=== PATIENT | female | born 1965 | race Caucasian/White ===

== ENCOUNTER → 2016-05-07 | Outpatient (CLI) | payer OTHER ==
[~2016-05-07] MED LIST: REGADENOSON 0.4 MG/5 ML SYRINGE IV ONE
--- NOTE | 2016-05-07 11:38 | EST ---
DATE OF SERVICE: 05/07/2016 AGE: 50Y SEX: F HT: 5'6" WT: 220 lbs. Protocol Miguel: Other: Lexiscan Cardiolite Stage: Dur. of Exercise: *Heart Rate Blood Pressure *Rest: 67 Rest: 110/79 * *Max. Achieved: 100 Maximum BP: 118/77 85% PMHR: 144 100% PMHR: 169 *METS: INDICATIONS: Chest pain. MEDICATIONS: Folic acid, methotrexate. CLINICAL INFORMATION: Screening for ischemic heart disease, history of chest pain, history of palpitations, family history of coronary artery disease. Resting ECG shows sinus rhythm rate of 67 beats per minute, DC interval 0.16, QRS 0.08, normal ST-T waves. Utilizing a standard Lexiscan protocol, Lexiscan was given IV push followed by serial EKGs without any chest pain or pressure or ST segment deviations indicative of ischemia in any of the monitoring 12 leads. IMPRESSION: 1. Baseline rhythm is sinus with normal DC interval, normal QRS, normal ST-T waves. 2. Negative Lexiscan Cardiolite study. 3. Nuclear scintigrams to follow from radiology department.
--- NOTE | 2016-05-07 14:44 | NM ---
EXAMINATION TYPE: NM stress lexiscan cardiolite DATE OF EXAM: 05/07/2016 11:55 AM COMPARISON: NONE HISTORY: Chest pain, R079 TECHNIQUE: After the intravenous administration of 11.0 mCi Tc 99m Sestamibi - Cardiolite resting SP ECT images acquired 45 minutes post injection. The patient received 0.4mg Lexiscan, 26.2 mCi Tc 99m Sestamibi - Stress images obtained [address] injection FINDINGS: Review of stress and rest SPECT images demonstrates decreased uptake along the anteroseptal, lateral mancilla of the left ventricular myocardium. This is seen at stress and rest images. Additionally there is decreased uptake along the anteroseptal left ventricular myocardium towards the cardiac apex on st ress images as compared to rest images as well as the lateral left ventricular wall towards the apex. Gated analysis shows normal wall motion with an estimated left ventricular ejection fraction of 72 %. 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 A Yellow message has been communicated to Nusrat Conway DO via the Mr. Number Critical Result system on 05/07/2016 2:42 PM, Message ID [id number].
== END | disposition home or self-care (01) ==
LOC: RADNMMAIN 08:49
PROVIDERS: ATTEND Family Medicine
DX: I25.2 Old myocardial infarction (principal)
CPT/HCPCS: 93017; 78452; A9500; J2785

== ENCOUNTER → 2016-07-15 | Outpatient (CLI) | payer OTHER ==
--- NOTE | 2016-07-15 08:03 | US ---
EXAMINATION TYPE: US abdomen limited DATE OF EXAM: 07/15/2016 7:17 AM COMPARISON: NONE CLINICAL HISTORY: RUQ Pain R10.11. EXAM MEASUREMENTS: Liver Length: 16.3 cm Gallbladder Wall: 0.1 cm CBD: 0.2 cm Right Kidney: 10.8 x 5.6 x 4.6 cm cm TECHNOLOGIST IMPRESSION: Pancreas: Obscured by bowel gas Liver: wnl Gallbladder: wnl Evidence for sonographic Liu's sign: no CBD: wnl Right Kidney: wnl Pancreas is suboptimally evaluated due to shadowing from overlying bowel gas. Liver is heterogeneousl y hyperechoic in appearance without intrahepatic ductal dilatation. Evaluation for focal masses is li mited due to the heterogeneity. Suspect diffuse fatty infiltration. Limited images of right kidney sh ow no gross hydronephrosis. IMPRESSION: No gallstones or ultrasound evidence for acute cholecystitis.
== END | disposition home or self-care (01) ==
LOC: RADUSWWP 06:47
PROVIDERS: ATTEND Family Medicine
DX: R10.11 Right upper quadrant pain (principal)
CPT/HCPCS: 76705; 82565; 84450; 84460; 84520; 85025

== ENCOUNTER → 2016-09-30 | Outpatient (CLI) | payer OTHER ==
--- NOTE | 2016-10-01 10:30 | MR ---
EXAMINATION TYPE: MR thoracic spine wo con DATE OF EXAM: 09/30/2016 COMPARISON: NONE HISTORY: 51-year-old female with mid back pain TECHNIQUE: Multiplanar, multisequence images of the thoracic spine were obtained without IV contrast. FINDINGS: On the sagittal T2 counting sequence, there is focal ligamentum flavum thickening at C6-C7 which abut s the dorsal cord but does not cause significant spinal canal stenosis. There is some accentuation to the thoracic curvature. Alignment is maintained. Vertebral body heights are preserved. No focal disc herniation is seen. Whts-qa-nvolueja anterior endplate spondylosis is noted. There is mild facet arthropathy at T10-T11 causing mild narrowing of the right T10-T11 neuroforamen. Otherwise, no significant spinal canal or neuroforaminal stenosis. Fatty Modic type II endplate change is present anteriorly from T11 through L2 levels. Faint fatty matrix hemangioma within T11 vertebral body. No suspicious bone marrow replacement. Normal course, caliber, and signal intensity of the thoracic cord. Conus medullaris terminates normal ly opposite L1-L2. No prevertebral or paravertebral soft tissue abnormality seen. IMPRESSION: 1. Accentuated thoracic curvature with preserved alignment. 2. Anterior endplate spondylosis. No focal disc herniation or significant spinal canal/neural foramin al stenosis. 3. There is some facet arthropathy that mildly narrows the right T10-T11 neuroforamen..
== END | disposition home or self-care (01) ==
LOC: RADMRIMAIN 13:42
PROVIDERS: ATTEND Nurse Practitioner Family
DX: M99.72 Connective tissue and disc stenosis of intervertebral foramina of thoracic region (principal); M47.814 Spondylosis without myelopathy or radiculopathy, thoracic region; M46.84 Other specified inflammatory spondylopathies, thoracic region
CPT/HCPCS: 72146

== ENCOUNTER 2019-06-18 19:29 | Inpatient (IN) | payer OTHER ==
[2019-06-18] MEDS ORDERED: ASPIRIN 81 MG PO STA (19:42)
[2019-06-18] MEDS ORDERED: DILTIAZEM DRIP BOLUS FROM BAG 1 MG SOLN IV ONE (19:43)
[2019-06-18] MEDS ORDERED: DILTIAZEM 125 MG in SODIUM CHLORIDE 0.9% 100 ML IV SCH (19:45)
[2019-06-18 20:19] LABS: ALT 27 U/L (4-34); AST 43 U/L (14-36); African American GFR (CKD) >90 (>60 ml/min/1.73 sqM); Albumin 4.2 g/dL (3.5-5.0); Alkaline Phosphatase 90 U/L (38-126); Anion Gap 11 mmol/L; Blood Urea Nitrogen 24 mg/dL (7-17); Calcium 9.1 mg/dL (8.4-10.2); Carbon Dioxide 19 mmol/L (22-30); Chloride 107 mmol/L (98-107); Glucose 136 mg/dL (74-99); Non-African American GFR(CKD) 81 (>60 ml/min/1.73 sqM); Potassium 3.7 mmol/L (3.5-5.1); Sodium 137 mmol/L (137-145); Total Bilirubin 0.5 mg/dL (0.2-1.3); Total Protein 7.1 g/dL (6.3-8.2)
--- NOTE | 2019-06-18 20:29 | XR ---
EXAMINATION TYPE: XR chest 1V portable DATE OF EXAM: 06/18/2019 COMPARISON: NONE HISTORY: Short of breath TECHNIQUE: FINDINGS: There is no heart failure nor confluent pneumonic infiltrate. Costophrenic angles are clear . There are chest leads. Bony thorax is intact. IMPRESSION: No active cardiopulmonary disease. Normal heart.
[2019-06-18 20:31] LABS: Basophils % (A) 0 %; Eosinophils # (A) 0.1 k/uL (0-0.7); Eosinophils % (A) 3 %; Lymphocytes # (A) 0.4 k/uL (1.0-4.8); Lymphocytes % (A) 10 %; MCH 30.8 pg (25.0-35.0); MCHC 34.1 g/dL (31.0-37.0); MCV 90.4 fL (80.0-100.0); Mean Platelet Volume 8.3; Monocytes # (A) 0.2 k/uL (0-1.0); Monocytes % (A) 5 %; Neutrophils # (A) 2.7 k/uL (1.3-7.7); Neutrophils % (A) 77 %; Partial Thromboplastin Time 21.8 sec (22.0-30.0); Platelet Count 279 k/uL (150-450); RBC 4.21 m/uL (3.80-5.40); WBC 3.5 k/uL (3.8-10.6)
[2019-06-18] MEDS ORDERED: HEPARIN SODIUM,PORCINE 5,000 UNIT/ML 1 ML VIAL IV ONE (21:23)
[2019-06-18] MEDS ORDERED: HEPARIN SODIUM,PORCINE 5,000 UNIT/ML 1 ML VIAL IV PRN (21:23)
--- NOTE | 2019-06-18 21:23 | ED ---
Arrhythmia/Palpitations HPI - General Chief Complaint: Arrhythmia/Palpitations Stated Complaint: Afib Time Seen by Provider: 06/18/19 19:33 Source: EMS Mode of arrival: EMS Limitations: no limitations - History of Present Illness Initial Comments: This 53-year-old white female presents with a complaint of some palpitations. This came on shortly prior to arrival. They did not resolve with vagal maneuvers. They are associated with some shortness of breath but no chest pain. She does relate a history of atrial fibrillation and this is similar. She normally takes a beta lilly for this. She hasn't taken it since last evening as she only takes at night. She normally sees Dr. Marroquin from [facility] in this regard. She denies being on any blood thinners. She denies any leg pain or swelling. No other complaints or modifying factors. She is only dull with atrial fibrillation intermittently for the last 2 years. - Related Data Allergies Allergy/AdvReac Type Severity Reaction Status Date / Time cephalexin [From Keflex] Allergy Anaphylaxis Verified 06/18/19 19:39 tetracycline Allergy Anaphylaxis Verified 06/18/19 19:39 Review of Systems ROS Statement: Those systems with pertinent positive or pertinent negative responses have been documented in the HPI. ROS Other: All systems not noted in ROS Statement are negative. Past Medical History Past Medical History: Atrial Fibrillation, Hyperlipidemia History of Any Multi-Drug Resistant Organisms: None Reported Past Surgical History: No Surgical Hx Reported Past Psychological History: No Psychological Hx Reported Smoking Status: Never smoker Past Alcohol Use History: None Reported Past Drug Use History: None Reported General Exam - General Exam Comments Initial Comments: GENERAL: The patient is well nourished and well hydrated. VITAL SIGNS: Heart rate, blood pressure, respiratory rate reviewed as recorded in nurse's notes. EYES: Pupils are round and reactive. Extraocular movements are intact. No conju nctival / lid redness or swelling. ENT: No external evidence of injury, swelling, or ecchymosis. Airway is patent. Throat is clear. NECK: Nontender. No swelling or evidence of injury. No subcutaneous emphysema. Trachea is midline. No thyroid mass. HEART: A tachycardic irregular rhythm is noted. Good peripheral pulses. LUNGS/CHEST: Breath sounds clear and equal bilaterally. No rales, rhonchi, or wheezes. No ecchymosis, subcutaneous emphysema, or tenderness. ABDOMEN: Abdomen soft without tenderness. No palpable masses or organomegaly. No peritoneal signs. No abdominal wall swelling or ecchymosis. EXTREMITIES: No extremity tenderness. Normal muscle tone and function. No thoracolumbar tenderness. NEUROLOGIC: Sensation is grossly intact. Cranial nerve exam reveals face is symmetrical, tongue is midline, speech is clear. SKIN: No abrasions or ecchymosis is noted. No induration or masses noted. PSYCHIATRIC: Alert and oriented. Appropriate behavior and judgment. Limitations: no limitations Course Vital Signs 06/18/19 06/18/19 06/18/19 19:32 20:38 21:02 Temperature 98.4 F Pulse Rate 130 H 120 H 110 H Respiratory 20 20 Rate Blood Pressure 141/87 121/60 O2 Sat by Pulse 98 96 Oximetry 06/18/19 21:16 Temperature Pulse Rate 121 H Respiratory 22 Rate Blood Pressure 99/70 O2 Sat by Pulse 98 Oximetry Medical Decision Making - Medical Decision Making The patient is seen and examined. All diagnostics are reviewed. The patient was placed on skid man and her heart rate is approximately 140 and irregular. The EKG shows atrial fibrillation with rapid ventricular response with a heart rate of 134. There is some diffuse ST-T wave changes noted throughout. There is no ST elevation. The QRS duration is 94 and the QTC intervals 433. The patient is started on a Cardizem drip and receives a Cardizem bolus. Cardizem drip was titrated. On recheck her heart rate is down to approximately 118. She is also started on some heparin intravenously. The chest x-ray does not show any acute process. The laboratory overall is unremarkable. It is felt as though she would benefit from admission to the hospital and cardiology consultation. The patient is agreeable. The case is discussed with Dr. Steele and he is agreeable with admission. Approximately 30 minutes of critical care time is utilized and the treatment of the patient. - Lab Data Result diagrams: 06/18/19 19:52 06/18/19 19:52 Lab Results 06/18/19 06/18/19 06/18/19 Range/Units 19:52 19:52 19:52 WBC 3.5 L (3.8-10.6) k/uL RBC 4.21 (3.80-5.40) m/uL Hgb 13.0 (11.4-16.0) gm/dL Hct 38.0 (34.0-46.0) % MCV 90.4 (80.0-100.0) fL MCH 30.8 (25.0-35.0) pg MCHC 34.1 (31.0-37.0) g/dL RDW 15.0 (11.5-15.5) % Plt Count 279 (150-450) k/uL Neutrophils % 77 % Lymphocytes % 10 % Monocytes % 5 % Eosinophils % 3 % Basophils % 0 % Neutrophils # 2.7 (1.3-7.7) k/uL Lymphocytes # 0.4 L (1.0-4.8) k/uL Monocytes # 0.2 (0-1.0) k/uL Eosinophils # 0.1 (0-0.7) k/uL Basophils # 0.0 (0-0.2) k/uL PT (9.0-12.0) sec INR (<1.2) APTT (22.0-30.0) sec Sodium 137 (137-145) mmol/L Potassium 3.7 (3.5-5.1) mmol/L Chloride 107 (98-107) mmol/L Carbon Dioxide 19 L (22-30) mmol/L Anion Gap 11 mmol/L BUN 24 H (7-17) mg/dL Creatinine 0.83 (0.52-1.04) mg/dL Est GFR (CKD-EPI)AfAm >90 (>60 ml/min/1.73 sqM) Est GFR (CKD-EPI)NonAf 81 (>60 ml/min/1.73 sqM) Glucose 136 H (74-99) mg/dL Calcium 9.1 (8.4-10.2) mg/dL Magnesium 2.0 (1.6-2.3) mg/dL Total Bilirubin 0.5 (0.2-1.3) mg/dL AST 43 H (14-36) U/L ALT 27 (4-34) U/L Alkaline Phosphatase 90 (38-126) U/L Troponin I (0.000-0.034) ng/mL NT-Pro-B Natriuret Pep 241 pg/mL Total Protein 7.1 (6.3-8.2) g/dL Albumin 4.2 (3.5-5.0) g/dL 06/18/19 06/18/19 Range/Units 19:52 19:52 WBC (3.8-10.6) k/uL RBC (3.80-5.40) m/uL Hgb (11.4-16.0) gm/dL Hct (34.0-46.0) % MCV (80.0-100.0) fL MCH (25.0-35.0) pg MCHC (31.0-37.0) g/dL RDW (11.5-15.5) % Plt Count (150-450) k/uL Neutrophils % % Lymphocytes % % Monocytes % % Eosinophils % % Basophils % % Neutrophils # (1.3-7.7) k/uL Lymphocytes # (1.0-4.8) k/uL Monocytes # (0-1.0) k/uL Eosinophils # (0-0.7) k/uL Basophils # (0-0.2) k/uL PT 10.0 (9.0-12.0) sec INR 1.0 (<1.2) APTT 21.8 L (22.0-30.0) sec Sodium (137-145) mmol/L Potassium (3.5-5.1) mmol/L Chloride (98-107) mmol/L Carbon Dioxide (22-30) mmol/L Anion Gap mmol/L BUN (7-17) mg/dL Creatinine (0.52-1.04) mg/dL Est GFR (CKD-EPI)AfAm (>60 ml/min/1.73 sqM) Est GFR (CKD-EPI)NonAf (>60 ml/min/1.73 sqM) Glucose (74-99) mg/dL Calcium (8.4-10.2) mg/dL Magnesium (1.6-2.3) mg/dL Total Bilirubin (0.2-1.3) mg/dL AST (14-36) U/L ALT (4-34) U/L Alkaline Phosphatase (38-126) U/L Troponin I 0.025 (0.000-0.034) ng/mL NT-Pro-B Natriuret Pep pg/mL Total Protein (6.3-8.2) g/dL Albumin (3.5-5.0) g/dL Disposition Clinical Impression: Atrial fibrillation with rapid ventricular response, Dyspnea, Palpitations Disposition: ADMITTED IP TO THIS HOSP Condition: Fair Is patient prescribed a controlled substance at d/c from ED?: No Time of Disposition: 21:22 Decision Date: 06/18/19 Decision Time: 21:23
[2019-06-18] MEDS ORDERED: ONDANSETRON 4 MG/2 ML VIAL IVP PRN (21:24)
[2019-06-18] MEDS ORDERED: ACETAMINOPHEN TAB 325 MG TAB PO PRN (21:24)
[2019-06-18] MEDS ORDERED: HEPARIN SOD,PORK IN 0.45% NACL 25,000 UNIT in 0.45% NACL 1 250ML.BAG IV SCH (21:30)
[2019-06-19 00:27] VITALS: RESP 18
[2019-06-19 03:48] LABS: HCT 36.3 % (34.0-46.0); MCH 30.4 pg (25.0-35.0); MCV 91.9 fL (80.0-100.0); Mean Platelet Volume 8.3; Platelet Count 280 k/uL (150-450); RBC 3.95 m/uL (3.80-5.40); WBC 2.9 k/uL (3.8-10.6)
[2019-06-19 04:15] LABS: Band Neutrophils % 1 %; Basophils # (M) 0.03 k/uL (0-0.2); Eosinophils # (M) 0.12 k/uL (0-0.7); Lymphocytes # (M) 0.29 k/uL (1.0-4.8); Monocytes # (M) 0.15 k/uL (0-1.0); Neutrophils % (M) 79 %; Nucleated Red Blood Cells 0 /100 WBC (0-0); Poikilocytosis (M) Present; Total Cells Counted 100
[2019-06-19] MEDS ORDERED: PANTOPRAZOLE 40 MG TABLET PO SCH (07:30)
[2019-06-19 07:48] VITALS: BP 99/62; PULSE 58; TEMP 98.2
--- NOTE | 2019-06-19 08:49 | P.CRDCN ---
History of Present Illness Consult date: 06/19/19 Chief complaint: Heart racing History of present illness: This is a very pleasant 53-year-old female patient with a past medical history significant for paroxysmal atrial fibrillation as well as dyslipidemia as well as obesity, presented to the hospital complaining of heart racing and fluttering. She was in her usual state of health yesterday when she was at home and suddenly she felt her heart was racing up with symptoms associated with di zziness and lightheadedness but no syncope. No chest pain or chest discomfort, and no nausea, vomiting, or sweating. She decided to come to the emergency room where she was found to be in A. fib with RVR but subsequently the patient converted to normal sinus mechanism. She is on high-dose metoprolol at home and she stated that she did not take her metoprolol last night. For some reason severe patient is not on any oral anticoagulation protocol because her chads Fasco score is not that high and only one. The patient does not have any diabetes, hypertension, congestive heart failure, and no history of CVA or TIA in the past. She stated that she does snore during the night and I am concerned about obstructive sleep apnea giving her overweight. The first set of troponin came in to be slightly abnormal which could be related to tachycardia and we are going to follow-up was 2 more sets of troponin. I ordered also an echocardiogram to establish LV function. The rest of her blood work came in to be unremarkable as well. Past Medical History Past Medical History: Atrial Fibrillation, GERD/Reflux, Hyperlipidemia, Osteoarthritis (OA) Additional Past Medical History / Comment(s): PSORISIS History of Any Multi-Drug Resistant Organisms: None Reported Past Surgical History: No Surgical Hx Reported Additional Past Surgical History / Comment(s): CYST REMOVED, TRIGGER THUMB Past Anesthesia/Blood Transfusion Reactions: No Reported Reaction Past Psychological History: No Psychological Hx Reported Smoking Status: Never smoker Past Alcohol Use History: None Reported Past Drug Use History: None Reported - Past Family History Mother Additional Family Medical History / Comment(s): SKIN CA Father Family Medical History: Coronary Artery Disease (CAD), Diabetes Mellitus Medications and Allergies Home Medications Medication Instructions Recorded Confirmed Type Cholecalciferol [Vitamin D3 (25 1,000 unit PO HS 06/18/19 06/18/19 History Mcg = 1000 Iu)] Digestive Enzyme 1 tab PO W/SUPPER 06/18/19 06/18/19 History Fenofibrate Nanocrystallized 145 mg PO HS 06/18/19 06/18/19 History [Tricor] Folic Acid 1 mg PO SUMOTUWETHFR 06/18/19 06/18/19 History Green Tea Parnell Extract [Green Tea 300 mg PO W/SUPPER 06/18/19 06/18/19 History Extract] L.acidoph,Paracasei, B.lactis 2 cap PO W/SUPPER 06/18/19 06/18/19 History [Probiotic] Methotrexate Sodium [Methotrexate] 12.5 mg PO SA 06/18/19 06/18/19 History Metoprolol Succinate [Toprol XL] 100 mg PO HS 06/18/19 06/18/19 History Omeprazole 20 mg PO W/SUPPER 06/18/19 06/18/19 History Pravastatin Sodium [Pravachol] 40 mg PO HS 06/18/19 06/18/19 History Vitamin E Acetate [Vitamin E] 200 unit PO HS 06/18/19 06/18/19 History Allergies Allergy/AdvReac Type Severity Reaction Status Date / Time cephalexin [From Keflex] Allergy Anaphylaxis Verified 06/18/19 21:19 tetracycline Allergy Anaphylaxis Verified 06/18/19 21:19 Physical Exam Vitals: Vital Signs Temp Pulse Pulse Resp BP BP Pulse Ox 06/19/19 07:46 98.2 F 58 L 18 99/62 100 06/19/19 04:00 98.8 F 78 18 148/81 97 06/19/19 00:07 98.8 F 92 18 154/83 98 06/18/19 23:30 98.8 F 92 18 154/83 98 06/18/19 22:59 101 H 20 103/53 98 06/18/19 22:17 102 H 06/18/19 22:01 113 H 20 128/71 96 06/18/19 21:16 121 H 22 99/70 98 06/18/19 21:02 110 H 06/18/19 20:38 120 H 20 121/60 96 06/18/19 19:32 98.4 F 130 H 20 141/87 98 Intake and Output 06/18/19 06/19/19 06/19/19 22:59 06:59 14:59 Intake Total 12.5 56.215 Balance 12.5 56.215 Intake: Intake, IV Titration 12.5 56.215 Amount Diltiazem 125 mg In 12.5 Sodium Chloride 0.9% 100 ml @ 10 MG/HR 10 mls/hr IV .[id number] [facility] Rx#: [id number] Heparin Sod,Pork in 0.45% 56.215 NaCl 25,000 unit In 0.45 % NaCl 1 250ml.bag @ 10 UNITS/KG/HR 9.979 mls/hr IV .Q24H [facility] Rx#: [id number] Other: # Voids 1 # Bowel Movements 1 Weight 99.79 kg 95.6 kg - Constitutional General appearance: no acute distress - Respiratory Respiratory: bilateral: CTA - Cardiovascular Rhythm: regular Heart sounds: normal: S1, S2 Results 06/19/19 03:06 06/18/19 19:52 Cardiac Enzymes 06/18/19 06/18/19 06/19/19 Range/Units 19:52 19:52 03:06 AST 43 H (14-36) U/L Troponin I 0.025 0.070 H* (0.000-0.034) ng/mL Coagulation 06/18/19 06/19/19 Range/Units 19:52 03:06 PT 10.0 (9.0-12.0) sec APTT 21.8 L 27.4 (22.0-30.0) sec CBC 06/18/19 06/19/19 Range/Units 19:52 03:06 WBC 3.5 L 2.9 L (3.8-10.6) k/uL RBC 4.21 3.95 (3.80-5.40) m/uL Hgb 13.0 12.0 (11.4-16.0) gm/dL Hct 38.0 36.3 (34.0-46.0) % Plt Count 279 280 (150-450) k/uL Comprehensive Metabolic Panel 06/18/19 Range/Units 19:52 Sodium 137 (137-145) mmol/L Potassium 3.7 (3.5-5.1) mmol/L Chloride 107 (98-107) mmol/L Carbon Dioxide 19 L (22-30) mmol/L BUN 24 H (7-17) mg/dL Creatinine 0.83 (0.52-1.04) mg/dL Glucose 136 H (74-99) mg/dL Calcium 9.1 (8.4-10.2) mg/dL AST 43 H (14-36) U/L ALT 27 (4-34) U/L Alkaline Phosphatase 90 (38-126) U/L Total Protein 7.1 (6.3-8.2) g/dL Albumin 4.2 (3.5-5.0) g/dL Current Medications Generic Name Dose Route Start Last Admin Trade Name Freq PRN Reason Stop Dose Admin Acetaminophen 650 mg 06/18/19 21:24 06/19/19 06:25 Tylenol Tab PO 650 mg Q6HR PRN Administration Mild Pain or Fever > 100.5 Cholecalciferol 1,000 unit 06/19/19 21:00 Vitamin D3 (25 Mcg = 1000 Iu) PO HS [facility] Fenofibrate 160 mg 06/19/19 21:00 Lofibra PO HS [facility] Folic Acid 1 mg 06/19/19 09:00 Folic Acid PO [id number] [facility] Heparin Sodium (Porcine) 0 unit 06/18/19 21:23 Heparin IV PER PROTOCOL PRN Low PTT Protocol Heparin Sodium/Sodium Chloride 250 mls @ 9.979 mls/hr 06/18/19 21:30 06/19/19 03:30 25,000 unit/ Sodium Chloride IV 12.93 units/kg/hr .Q24H [facility] 12.9 mls/hr Titration Protocol 10 UNITS/KG/HR Methotrexate 12.5 mg 06/23/19 09:00 Methotrexate PO Sa@0900 [facility] Metoprolol Succinate 100 mg 06/19/19 21:00 Toprol Xl PO HS [facility] Ondansetron HCl 4 mg 06/18/19 21:24 Zofran IVP Q8HR PRN Nausea And Vomiting Pantoprazole Sodium 40 mg 06/19/19 07:30 06/19/19 06:21 Protonix PO 40 mg [id number] [facility] Administration Pravastatin Sodium 40 mg 06/19/19 21:00 Pravachol PO [facility] Intake and Output 06/18/19 06/19/19 06/19/19 22:59 06:59 14:59 Intake Total 12.5 56.215 Balance 12.5 56.215 Intake: Intake, IV Titration 12.5 56.215 Amount Diltiazem 125 mg In 12.5 Sodium Chloride 0.9% 100 ml @ 10 MG/HR 10 mls/hr IV .[id number] [facility] Rx#: [id number] Heparin Sod,Pork in 0.45% 56.215 NaCl 25,000 unit In 0.45 % NaCl 1 250ml.bag @ 10 UNITS/KG/HR 9.979 mls/hr IV .Q24H [facility] Rx#: [id number] Other: # Voids 1 # Bowel Movements 1 Weight 99.79 kg 95.6 kg 06/19/19 03:06 06/18/19 19:52 Assessment and Plan Assessment: Assessment #1 A. fib with RVR. The patient converted to normal sinus mechanism #2 history of paroxysmal atrial fibrillation #3 possible sleep apnea #4 dyslipidemia Plan #1 rule out acute coronary event. We'll follow-up with the serial cardiac enzymes #2 obtain an echocardiogram was Doppler #3 the patient was started on metoprolol #4 I would look into oral anticoagulation for the patient to be started on #5 follow-up with the patient Thank you for allowing us participate in her care.
[2019-06-19] MEDS ORDERED: FOLIC ACID 1 MG TAB PO SCH (09:00)
[2019-06-19] MEDS ORDERED: APIXABAN 5 MG TAB PO SCH (09:00)
--- NOTE | 2019-06-19 10:24 | P.HPIM ---
History of Present Illness 53-year-old pleasant female came in with compensative palpitations patient does have history of atrial fibrillation on any anti-correlation because of a low chads score. Patient converted to sinus rhythm at this time patient is a de nying any short of breath at this time. Patient given samples of breath lightheadedness and a heart racing. Patient has mildly elevated troponin secondary to atrial fibrillation history of heart failure chest x-ray is within normal limits bnp is not elevated doesn't have any jvd echocardiac exam was opted was also pending. patient was started on anti-correlation with eliquis patient probably will be discharged today with eliquis. No evidence of infection or sepsis or dehydration. Review of Systems REVIEW OF SYSTEMS: CONSTITUTIONAL: No fever, no malaise, no fatigue. HEENT: No recent visual problems or hearing problems. Denied any sore throat. CARDIOVASCULAR: No chest pain, orthopnea, PND, no syncope. PULMONARY: No no cough, no hemoptysis. GASTROINTESTINAL: No diarrhea, no nausea, no vomiting, no abdominal pain. NEUROLOGICAL: No headaches, no weakness, no numbness. HEMATOLOGICAL: Denies any bleeding or petechiae. GENITOURINARY: Denies any burning micturition, frequency, or urgency. MUSCULOSKELETAL/RHEUMATOLOGICAL: Denies any joint pain, swelling, or any muscle pain. ENDOCRINE: Denies any polyuria or polydipsia. The rest of the 14-point review of systems is negative. Past Medical History Past Medical History: Atrial Fibrillation, GERD/Reflux, Hyperlipidemia, Osteoarthritis (OA) Additional Past Medical History / Comment(s): PSORISIS History of Any Multi-Drug Resistant Organisms: None Reported Past Surgical History: No Surgical Hx Reported Additional Past Surgical History / Comment(s): CYST REMOVED, TRIGGER THUMB Past Anesthesia/Blood Transfusion Reactions: No Reported Reaction Past Psychological History: No Psychological Hx Reported Smoking Status: Never smoker Past Alcohol Use History: None Reported Past Drug Use History: None Reported - Past Family History Mother Additional Family Medical History / Comment(s): SKIN CA Father Family Medical History: Coronary Artery Disease (CAD), Diabetes Mellitus Medications and Allergies Home Medications Medication Instructions Recorded Confirmed Type Cholecalciferol [Vitamin D3 (25 1,000 unit PO HS 06/18/19 06/18/19 History Mcg = 1000 Iu)] Digestive Enzyme 1 tab PO W/SUPPER 06/18/19 06/18/19 History Fenofibrate Nanocrystallized 145 mg PO HS 06/18/19 06/18/19 History [Tricor] Folic Acid 1 mg PO SUMOTUWETHFR 06/18/19 06/18/19 History Green Tea [place] Extract [Green Tea 300 mg PO W/SUPPER 06/18/19 06/18/19 History Extract] L.acidoph,Paracasei, B.lactis 2 cap PO W/SUPPER 06/18/19 06/18/19 History [Probiotic] Methotrexate Sodium [Methotrexate] 12.5 mg PO SA 06/18/19 06/18/19 History Metoprolol Succinate [Toprol XL] 100 mg PO HS 06/18/19 06/18/19 History Omeprazole 20 mg PO W/SUPPER 06/18/19 06/18/19 History Pravastatin Sodium [Pravachol] 40 mg PO HS 06/18/19 06/18/19 History Vitamin E Acetate [Vitamin E] 200 unit PO HS 06/18/19 06/18/19 History Apixaban [Eliquis] 5 mg PO BID #60 tab 06/19/19 Rx Allergies Allergy/AdvReac Type Severity Reaction Status Date / Time cephalexin [From Keflex] Allergy Anaphylaxis Verified 06/18/19 21:19 tetracycline Allergy Anaphylaxis Verified 06/18/19 21:19 Physical Exam Vitals: Vital Signs Temp Pulse Pulse Resp BP BP Pulse Ox 06/19/19 08:00 58 L 18 06/19/19 07:46 98.2 F 58 L 18 99/62 100 06/19/19 04:00 98.8 F 78 18 148/81 97 06/19/19 00:07 98.8 F 92 18 154/83 98 06/18/19 23:30 98.8 F 92 18 154/83 98 06/18/19 22:59 101 H 20 103/53 98 06/18/19 22:17 102 H 06/18/19 22:01 113 H 20 128/71 96 06/18/19 21:16 121 H 22 99/70 98 06/18/19 21:02 110 H 06/18/19 20:38 120 H 20 121/60 96 06/18/19 19:32 98.4 F 130 H 20 141/87 98 Intake and Output 06/18/19 06/19/19 06/19/19 22:59 06:59 14:59 Intake Total 12.5 56.215 Balance 12.5 56.215 Intake: Intake, IV Titration 12.5 56.215 Amount Diltiazem 125 mg In 12.5 Sodium Chloride 0.9% 100 ml @ 10 MG/HR 10 mls/hr IV .[id number] [facility] Rx#: [id number] Heparin Sod,Pork in 0.45% 56.215 NaCl 25,000 unit In 0.45 % NaCl 1 250ml.bag @ 10 UNITS/KG/HR 9.979 mls/hr IV .Q24H [facility]UCK[facility] Rx#: [id number] Other: Voiding Method Toilet # Voids 1 # Bowel Movements 1 1 Weight 99.79 kg 95.6 kg PHYSICAL EXAMINATION: GENERAL: The patient is alert and oriented x3, not in any acute distress. Well developed, well nourished. HEENT: Pupils are round and equally reacting to light. EOMI. No scleral icterus. No conjunctival pallor. Normocephalic, atraumatic. No pharyngeal erythema. No thyromegaly. CARDIOVASCULAR: S1 and S2 present. No murmurs, rubs, or gallops. PULMONARY: Chest is clear to auscultation, no wheezing or crackles. ABDOMEN: Soft, nontender, nondistended, normoactive bowel sounds. No palpable organomegaly. MUSCULOSKELETAL: No joint swelling or deformity. EXTREMITIES: No cyanosis, clubbing, or pedal edema. NEUROLOGICAL: Gross neurological examination did not reveal any focal deficits. SKIN: No rashes. Results CBC & Chem 7: 06/19/19 03:06 06/18/19 19:52 Labs: Abnormal Lab Results - Last 24 Hours (Table) 06/18/19 06/18/19 06/18/19 Range/Units 19:52 19:52 19:52 WBC 3.5 L (3.8-10.6) k/uL Lymphocytes # 0.4 L (1.0-4.8) k/uL Lymphocytes # (Manual) (1.0-4.8) k/uL APTT 21.8 L (22.0-30.0) sec Carbon Dioxide 19 L (22-30) mmol/L BUN 24 H (7-17) mg/dL Glucose 136 H (74-99) mg/dL AST 43 H (14-36) U/L Troponin I (0.000-0.034) ng/mL 06/19/19 06/19/19 Range/Units 03:06 03:06 WBC 2.9 L (3.8-10.6) k/uL Lymphocytes # (1.0-4.8) k/uL Lymphocytes # (Manual) 0.29 L (1.0-4.8) k/uL APTT (22.0-30.0) sec Carbon Dioxide (22-30) mmol/L BUN (7-17) mg/dL Glucose (74-99) mg/dL AST (14-36) U/L Troponin I 0.070 H* (0.000-0.034) ng/mL Thrombosis Risk Factor Assmnt - Choose All That Apply Any of the Below Risk Factors Present?: No Assessment and Plan Plan: -Atrial fibrillation with rapid ventricular rate: Patient is presently rate controlled sinus rhythm patient is on 100 sustained release of for metoprolol since her heart rate is 57 year not increasing the dose of metoprolol patient will be started on Eliquis and will be discharged patient probably has proximal A. fib. -Gastric dysphagia reflux disease -Hyperlipidemia.
--- NOTE | 2019-06-19 10:25 | P.DS ---
Providers Date of admission: 06/18/19 21:24 Attending physician: Sukhwinder Steele Consults: 06/18/19 21:25 Consult Physician Routine Consulting Provider: Shonda Denis Consult Reason/Comments: a-fib with RVR Do you want consulting provider notified?: Yes Primary care physician: [facility] Course: Please refer to my H&P for further details. Patient Condition at Discharge: Fair Plan - Discharge Summary Discharge Rx Participant: No New Discharge Prescriptions: New Apixaban [Eliquis] 5 mg PO BID #60 tab Continue L.acidoph,Paracasei, B.lactis [Probiotic] 2 cap PO W/SUPPER Vitamin E Acetate [Vitamin E] 200 unit PO HS Green Tea [place] Extract [Green Tea Extract] 300 mg PO W/SUPPER Cholecalciferol [Vitamin D3 (25 Mcg = 1000 Iu)] 1,000 unit PO HS Omeprazole 20 mg PO W/SUPPER Folic Acid 1 mg PO SUMOTUWETHFR Methotrexate Sodium [Methotrexate] 12.5 mg PO SA Pravastatin Sodium [Pravachol] 40 mg PO HS Metoprolol Succinate [Toprol XL] 100 mg PO HS Fenofibrate Nanocrystallized [Tricor] 145 mg PO HS Digestive Enzyme 1 tab PO W/SUPPER Discharge Medication List Cholecalciferol [Vitamin D3 (25 Mcg = 1000 Iu)] 1,000 unit PO HS 06/18/19 [History] Digestive Enzyme 1 tab PO W/SUPPER 06/18/19 [History] Fenofibrate Nanocrystallized [Tricor] 145 mg PO HS 06/18/19 [History] Folic Acid 1 mg PO SUMOTUWETHFR 06/18/19 [History] Green Tea [place] Extract [Green Tea Extract] 300 mg PO W/SUPPER 06/18/19 [History] L.acidoph,Paracasei, B.lactis [Probiotic] 2 cap PO W/SUPPER 06/18/19 [History] Methotrexate Sodium [Methotrexate] 12.5 mg PO SA 06/18/19 [History] Metoprolol Succinate [Toprol XL] 100 mg PO HS 06/18/19 [History] Omeprazole 20 mg PO W/SUPPER 06/18/19 [History] Pravastatin Sodium [Pravachol] 40 mg PO HS 06/18/19 [History] Vitamin E Acetate [Vitamin E] 200 unit PO HS 06/18/19 [History] Apixaban [Eliquis] 5 mg PO BID #60 tab 06/19/19 [Rx] Follow up Appointment(s)/Referral(s): Nusrat Conway DO [Primary Care Provider] - 3 Days Discharge Disposition: HOME SELF-CARE
--- NOTE | 2019-06-19 15:20 | ECHOF ---
Referral Reason:A. FIB MEASUREMENTS -------- HEIGHT: 167.6 cm WEIGHT: 95.3 kg BP: 99/62 IVSd: 1.0 cm (0.6 - 1.1) LVIDd: 4.8 cm (3.9 - 5.3) LVPWd: 1.1 cm (0.6 - 1.1) IVSs: 1.5 cm LVIDs: 3.2 cm LVPWs: 1.6 cm RVIDd: 4.0 cm (< 3.3) LAESV Index (A-L): 35.97 ml/m Ao Diam: 3.3 cm (2.0 - 3.7) AV Cusp: 1.7 cm (1.5 - 2.6) EPSS: 1.0 cm MV E Parish: 0.99 m/s MV DecT: 248 ms MV A Parish: 0.60 m/s MV E/A Ratio: 1.65 RAP: 5.00 mmHg RVSP: 33.36 mmHg MV EF SLOPE: 60.21 mm/s (70 - 150) MV EXCURSION: 16.14 mm (> 18.000) FINDINGS -------- Sinus rhythm. This was a technically adequate study. The left ventricular size is normal. There is borderline concentric left ventricular hypertrophy. Overall left ventricular systolic function is normal with, an EF between 55 - 60 %. The diastolic filling pattern is normal for the age of the patient 13.12. The right ventricle is moderately enlarged. LA is midly dilated 29-33ml/m2. The right atrium is mildly enlarged. Interatrial and interventricular septum intact. The aortic valve is trileaflet and appears structurally normal. There is mild aortic valve sclerosi s. There is no evidence of aortic regurgitation. There is no evidence of aortic stenosis. [id number] mitral regurgitation is present. Mild tricuspid regurgitation present. There is borderline pulmonary artery hypertension. The righ t ventricular systolic pressure, as measured by Doppler, is 33.36mmHg. There is no pulmonic regurgitation present. The aortic root size is normal. Normal inferior vena cava with normal inspiratory collapse consistent with estimated right atrial pre ssure of 5 mmHg. There is no pericardial effusion. CONCLUSIONS -------- 1. Sinus rhythm. 2. This was a technically adequate study. 3. The left ventricular size is normal. 4. There is borderline concentric left ventricular hypertrophy. 5. Overall left ventricular systolic function is normal with, an EF between 55 - 60 %. 6. The diastolic filling pattern is normal for the age of the patient 13.12 7. The right ventricle is moderately enlarged. 8. LA is midly dilated 29-33ml/m2. 9. The right atrium is mildly enlarged. 10. Interatrial and interventricular septum intact. 11. The aortic valve is trileaflet and appears structurally normal. 12. There is mild aortic valve sclerosis. 13. There is no evidence of aortic regurgitation. 14. There is no evidence of aortic stenosis. 15. [id number] mitral regurgitation is present. 16. Mild tricuspid regurgitation present. 17. There is borderline pulmonary artery hypertension. 18. The right ventricular systolic pressure, as measured by Doppler, is 33.36mmHg. 19. There is no pulmonic regurgitation present. 20. The aortic root size is normal. 21. Normal inferior vena cava with normal inspiratory collapse consistent with estimated right atrial pressure of 5 mmHg. 22. There is no pericardial effusion. TOP SPOTTER: Kesha Maradiaga RDCS
[2019-06-19] MEDS ORDERED: [UNRECOGNIZED DRUG - OTHER] PO SCH (17:30)
[2019-06-19] MEDS ORDERED: DIGESTIVE ENZYME PO SCH (17:30)
[2019-06-19] MEDS ORDERED: ACIDOPH PARACASEI B LACTIS PO SCH (17:30)
[2019-06-19] MEDS ORDERED: NON FORMULARY DRUG (Omeprazole [Omeprazole] 20 MG) PO SCH (17:30)
[2019-06-19] MEDS ORDERED: VITAMIN E ACETATE 200 UNIT PO SCH (21:00)
[2019-06-19] MEDS ORDERED: PRAVASTATIN SODIUM 40 MG TAB PO SCH (21:00)
[2019-06-19] MEDS ORDERED: METOPROLOL SUCCINATE (ER) 100 MG TAB.ER.24H PO SCH (21:00)
[2019-06-19] MEDS ORDERED: FENOFIBRATE 160 MG TAB PO SCH (21:00)
[2019-06-19] MEDS ORDERED: CHOLECALCIFEROL 1,000 UNIT TAB PO SCH (21:00)
[2019-06-23] MEDS ORDERED: METHOTREXATE SODIUM 2.5 MG TAB PO SCH (09:00)
== END 2019-06-19 12:25 | disposition home or self-care (01) | DRG 310 ==
LOC: EC 19:29 → 3SCARD 21:24
PROVIDERS: ADMIT Internal Medicine; ATTEND Internal Medicine
DX: I48.0 Paroxysmal atrial fibrillation (principal); E78.5 Hyperlipidemia, unspecified; E66.3 Overweight; M19.90 Unspecified osteoarthritis, unspecified site; K21.9 Gastro-esophageal reflux disease without esophagitis; R13.10 Dysphagia, unspecified; Z79.01 Long term (current) use of anticoagulants; Z79.899 Other long term (current) drug therapy; Z82.49 Family history of ischemic heart disease and other diseases of the circulatory system; Z83.3 Family history of diabetes mellitus; Z68.34 Body mass index [BMI] 34.0-34.9, adult; Z88.1 Allergy status to other antibiotic agents
CPT/HCPCS: 36415; 71045; 80053; 83735; 83880; 84484; 85025; 85610; 85730; 93005; 93306; 96365; 96366; 96368; 96376; 99291

== ENCOUNTER → 2019-07-12 | Outpatient (CLI) | payer OTHER ==
--- NOTE | 2019-07-12 09:59 | US ---
EXAMINATION TYPE: US venous doppler duplex LE RT DATE OF EXAM: 07/12/2019 9:49 AM COMPARISON: NONE CLINICAL HISTORY: M79.604 pain R leg, R22.41 Swelling R leg. right leg pain SIDE PERFORMED: Right TECHNIQUE: The lower extremity deep venous system is examined utilizing real time linear array sonog nickolas with graded compression, doppler sonography and color-flow sonography. VESSELS IMAGED: External Iliac Vein (EIV) Common Femoral Vein Deep Femoral Vein Greater Saphenous Vein * Femoral Vein Popliteal Vein Small Saphenous Vein * Proximal Calf Veins (* superficial vessels) Right Leg: Negative for DVT Grayscale, color doppler, spectral doppler imaging performed of the deep veins of the right lower ext remity. There is normal flow, compressibility, vascular waveforms. IMPRESSION: No ultrasound evidence for acute DVT in the right lower extremity.
== END | disposition home or self-care (01) ==
LOC: RADUSWWP 09:25
PROVIDERS: ATTEND Family Medicine
DX: M79.604 Pain in right leg (principal); R22.41 Localized swelling, mass and lump, right lower limb

== ENCOUNTER → 2019-07-27 | Outpatient (CLI) | payer OTHER ==
[2019-07-27 11:51] LABS: African American GFR (CKD) >90 (>60 ml/min/1.73 sqM); Anion Gap 6 mmol/L; Blood Urea Nitrogen 12 mg/dL (7-17); Carbon Dioxide 27 mmol/L (22-30); Chloride 105 mmol/L (98-107); Non-African American GFR(CKD) >90 (>60 ml/min/1.73 sqM); Potassium 4.7 mmol/L (3.5-5.1); Sodium 138 mmol/L (137-145)
[2019-07-27 11:56] LABS: HCT 39.2 % (34.0-46.0); HGB 12.9 gm/dL (11.4-16.0); MCH 30.1 pg (25.0-35.0); MCV 91.1 fL (80.0-100.0); Mean Platelet Volume 7.8; Platelet Count 244 k/uL (150-450); WBC 3.5 k/uL (3.8-10.6)
== END | disposition home or self-care (01) ==
LOC: LABPAT 10:49
PROVIDERS: ATTEND Internal Medicine Interventional Cardiology
DX: Z01.818 Encounter for other preprocedural examination (principal); R94.39 Abnormal result of other cardiovascular function study
CPT/HCPCS: 36415; 80051; 82565; 84520; 85027

== ENCOUNTER 2019-07-30 07:54 | Day surgery (SDC) | payer OTHER ==
[2019-07-26 15:53] VITALS: BMI 34.3
[~2019-07-30 07:54] MED LIST changes: +ALPRAZolam 0.25 MG TAB PO PRN; +ALPRAZolam 0.5 MG TAB PO PRN; +ASPIRIN 325 MG TAB PO ONE; +NITROGLYCERIN SL TABS 0.4 MG TAB SUBLINGUAL PRN; -REGADENOSON 0.4 MG/5 ML SYRINGE IV ONE; +SODIUM CHLORIDE 0.9% 1,000 ML in EMPTY BAG 1 BAG IV ONE
[2019-07-30 08:20] VITALS: RESP 16; TEMP 98.7
[2019-07-30] MEDS ORDERED: LIDOCAINE 1% INJ 10MG/ML (20 ML MDV) ONE (08:33)
[2019-07-30] MEDS ORDERED: VERAPAMIL 2.5 MG/ML 2 ML AMP ONE (08:33)
[2019-07-30] MEDS ORDERED: MIDAZOLAM 2 MG/2 ML VIAL IV ONE (08:40)
[2019-07-30] MEDS ORDERED: HEPARIN SODIUM 1,000 UN/ML (10ML VL) ONE (08:41)
[2019-07-30] MEDS ORDERED: LIDOCAINE 1% INJ 10MG/ML (20 ML MDV) SQ ONE (08:45)
[2019-07-30] MEDS ORDERED: VERAPAMIL SYRINGE (5 MG/10 ML) INTRAARTER ONE (08:47)
[2019-07-30] MEDS ORDERED: IOPAMIDOL-370 100ML BTL INJ ONE (08:56)
[2019-07-30] MEDS ORDERED: SODIUM CHLORIDE 0.9% 1,000 ML IV SCH (09:15)
[2019-07-30] MEDS ORDERED: FOLIC ACID 1 MG TAB PO SCH (09:30)
--- NOTE | 2019-07-30 09:43 | CC ---
CARDIAC CATHETERIZATION REPORT DATE OF SERVICE: 07/30/2019 PROCEDURE: Left heart catheterization and coronary angiography. PERFORMED BY: Dr. Maite Yancey. Moderate conscious sedation time was 17 minutes. Patient was administered Versed. Oxygen saturation, hemodynamics and EKG were monitored closely. CLINICAL INFORMATION: Mrs. Frieda Power is a 53-year-old lady with a history of hyperlipidemia, family history of CAD, recent episode of paroxysmal atrial fibrillation for which she was on Eliquis. She had a stress test with Lexiscan, which revealed anteroapical and inferoapical reversible defect and mild hypokinesia with reduced ejection fraction. Given these findings and symptoms of exertional shortness of breath, I recommended coronary angiography after due discussion regarding risks, benefits, and options. PROCEDURE NOTE: Under local anesthesia and strict aseptic precautions, a 6-Yoruba sheath was placed in the right radial artery. Using a JL3.5 and JR4.0 catheters I performed coronary angiography and the same right Evette catheter was used to check LV pressures. LV gram was not performed. The sheath was taken out and TR band applied as per protocol. Saturation in the fingers of the right hand was 100%. CARDIAC CATHETERIZATION FINDINGS: The left foot end-diastolic pressure was 15 mmHg without any gradient across the aortic valve. CORONARY ANGIOGRAPHY FINDINGS: THE RIGHT CORONARY ARTERY: Technically a dominant vessel has no significant disease distally bifurcates into PDA and PLV, which is within. Both of these vessels are large and free of significant disease. LEFT MAIN CORONARY ARTERY: A long disease-free vessel that bifurcates into LAD and circumflex. LEFT ANTERIOR DESCENDING CORONARY ARTERY: Good caliber vessel, extends along the anterior wall, supplies a sizable amount of myocardium. It gives off small septal and diagonal branches that are disease-free. LEFT POSTERIOR CIRCUMFLEX CORONARY ARTERY:: Nondominant vessel, gives off a single obtuse marginal proximally and continues with posterolateral branch distally. Minor irregularities. No significant disease. Left ventriculogram was not performed. FINAL IMPRESSION: This patient has acceptable filling pressures, no gradient across aortic valve. A right-dominant system without obstructive coronary artery disease. RECOMMENDATIONS: Findings were discussed with the patient. I am recommending that she can continue her current medications, include beta blockers, pravastatin, and Eliquis will be resumed tomorrow. She will discontinue aspirin. I will see her in the office on this Tuesday and then she will follow up with Dr. Denis. Results were discussed with the patient as well as her mother. I expect that she will be discharged later on today if she remains stable. MMGIULIANA / GÓMEZ: [id number] /
[2019-07-30 10:27] VITALS: PULSE 62
[2019-07-30 11:15] VITALS: BP 110/59
[2019-07-30] MEDS ORDERED: DIGESTIVE ENZYME PO SCH (17:30)
[2019-07-30] MEDS ORDERED: ACIDOPH PARACASEI B LACTIS PO SCH (17:30)
[2019-07-30] MEDS ORDERED: APPLE CIDER VINEGAR PO SCH (17:30)
[2019-07-30] MEDS ORDERED: NON FORMULARY DRUG (Omeprazole [Omeprazole] 20 MG) PO SCH (17:30)
[2019-07-30] MEDS ORDERED: PRAVASTATIN SODIUM 40 MG TAB PO SCH (21:00)
[2019-07-30] MEDS ORDERED: METOPROLOL SUCCINATE (ER) 100 MG TAB.ER.24H PO SCH (21:00)
[2019-07-30] MEDS ORDERED: VITAMIN E ACETATE 200 UNIT PO SCH (21:00)
[2019-07-30] MEDS ORDERED: APIXABAN 5 MG TAB PO SCH (21:00)
[2019-07-30] MEDS ORDERED: CHOLECALCIFEROL 1,000 UNIT TAB PO SCH (21:00)
[2019-07-31] MEDS ORDERED: EPA PO SCH (09:00)
[2019-07-31] MEDS ORDERED: FISH OIL PO SCH (09:00)
[2019-07-31] MEDS ORDERED: DHA PO SCH (09:00)
[2019-08-04] MEDS ORDERED: METHOTREXATE SODIUM 2.5 MG TAB PO SCH (09:00)
== END 2019-07-30 14:47 | disposition home or self-care (01) ==
LOC: CATHCVL 07:54
PROVIDERS: ATTEND Internal Medicine Interventional Cardiology
DX: I20.0 Unstable angina (principal); R94.39 Abnormal result of other cardiovascular function study; I48.0 Paroxysmal atrial fibrillation; E78.00 Pure hypercholesterolemia, unspecified; E78.5 Hyperlipidemia, unspecified; E66.9 Obesity, unspecified; Z79.01 Long term (current) use of anticoagulants; Z79.899 Other long term (current) drug therapy; Z88.1 Allergy status to other antibiotic agents; Z88.6 Allergy status to analgesic agent; Z68.34 Body mass index [BMI] 34.0-34.9, adult; Z82.49 Family history of ischemic heart disease and other diseases of the circulatory system
CPT/HCPCS: 93458; C1769; C1894; J2250; J2001; J1644; Q9967

== ENCOUNTER 2021-10-13 09:33 | Inpatient (IN) | payer OTHER ==
[2021-10-13] MEDS ORDERED: SODIUM CHLORIDE 0.9% 1,000 ML IV STA (09:57)
[2021-10-13] MEDS ORDERED: DILTIAZEM DRIP BOLUS FROM BAG 1 MG SOLN IV ONE (10:02)
--- NOTE | 2021-10-13 10:05 | ED ---
General Adult HPI - General Chief complaint: Arrhythmia/Palpitations Stated complaint: Cardiac Issue Time Seen by Provider: 10/13/21 09:45 Source: patient, RN notes reviewed, old records reviewed Mode of arrival: ambulatory Limitations: no limitations - History of Present Illness Initial comments: This is a 56-year-old female with past medical history significant for atrial fibrillation. Patient states this morning at 7:30 she was woken up by palpita tions and felt like she was in A. fib again. Patient states she's not having any chest pain but she is feeling short of breath and a little lightheaded when she stands. Patient denies any fever chills or cough per patient denies any abdominal pain patient denies nausea vomiting diarrhea. Patient denies any swelling to the legs or calf tenderness. - Related Data Home Medications Medication Instructions Recorded Confirmed Cholecalciferol [Vitamin D3 (25 1,000 unit PO HS 06/18/19 07/30/19 Mcg = 1000 Iu)] Digestive Enzyme 1 tab PO W/SUPPER 06/18/19 07/30/19 Folic Acid 1 mg PO SUMOTUWETHFR 06/18/19 07/30/19 L.acidoph,Paracasei, B.lactis 2 cap PO W/SUPPER 06/18/19 07/30/19 [Probiotic] Metoprolol Succinate [Toprol XL] 100 mg PO 06/18/19 07/30/19 Omeprazole 20 mg PO W/SUPPER 06/18/19 07/30/19 Pravastatin Sodium [Pravachol] 40 mg PO 06/18/19 07/30/19 Vitamin E (Dl,Tocopheryl Acet) 200 unit PO 06/18/19 07/30/19 [Vitamin E] metHOTREXate sodium [Methotrexate] 12.5 mg PO 06/18/19 07/30/19 Apple Cidar Ving.(Doseunknown) 2 tab PO W/SUPPER 07/26/19 07/30/19 Aspirin [Adult Low Dose Aspirin EC] 81 mg PO DAILY 07/26/19 07/30/19 Fish Oil/Dha/Epa [Fish Oil 1,200 2 each PO DAILY 07/26/19 07/30/19 mg Fish Oil] Previous Rx's Medication Instructions Recorded Apixaban [Eliquis] 5 mg PO BID #60 tab 06/19/19 Allergies Allergy/AdvReac Type Severity Reaction Status Date / Time cephalexin [From Keflex] Allergy Anaphylaxis Verified 10/13/21 09:38 tetracycline Allergy Anaphylaxis Verified 10/13/21 09:38 Review of Systems ROS Statement: Those systems with pertinent positive or pertinent negative responses have been documented in the HPI. ROS Other: All systems not noted in ROS Statement are negative. Past Medical History Past Medical History: Atrial Fibrillation, GERD/Reflux, Hyperlipidemia, Osteoarthritis (OA), Skin Disorder Additional Past Medical History / Comment(s): PSORIASIS, abnormal stress test, hernia in "abdomen", constipation, History of Any Multi-Drug Resistant Organisms: None Reported Past Surgical History: Orthopedic Surgery Additional Past Surgical History / Comment(s): ganglion CYST REMOVED rt hand, TRIGGER THUMB rt hand Past Anesthesia/Blood Transfusion Reactions: Motion Sickness Past Psychological History: No Psychological Hx Reported Past Alcohol Use History: None Reported Past Drug Use History: None Reported - Past Family History Mother Family Medical History: Cancer Additional Family Medical History / Comment(s): SKIN CA Father Family Medical History: Coronary Artery Disease (CAD), Diabetes Mellitus General Exam - General Exam Comments Initial Comments: GENERAL: Patient is well-developed and well-nourished. Patient is nontoxic and well- hydrated and is in no acute distress. ENT: Neck is soft and supple. No significant lymphadenopathy is noted. Oropharynx is clear. Moist mucous membranes. Neck has full range of motion without eliciting any pain. EYES: The sclera were anicteric and conjunctiva were pink and moist. Extraocular movements were intact and pupils were equal round and reactive to light. Eyelids were unremarkable. PULMONARY: Unlabored respirations. Good breath sounds bilaterally. No audible rales rhonchi or wheezing was noted. CARDIOVASCULAR: Patient is tachycardic in the 140 beats minute and it is irregular. ABDOMEN: Soft and nontender with normal bowel sounds. SKIN: Skin is clear with no lesions or rashes and otherwise unremarkable. NEUROLOGIC: Patient is alert and oriented x3. Cranial nerves II through XII are grossly intact. Motor and sensory are also intact. Normal speech, volume and content. Symmetrical smile. MUSCULOSKELETAL: Normal extremities with adequate strength and full range of motion. No lower extremity swelling or edema. No calf tenderness. LYMPHATICS: No significant lymphadenopathy is noted PSYCHIATRIC: Normal psychiatric evaluation. Limitations: no limitations Course Vital Signs 10/13/21 10/13/21 10/13/21 09:35 09:56 10:27 Temperature 98.2 F Pulse Rate 70 151 H 98 Respiratory 18 18 16 Rate Blood Pressure 137/68 101/86 96/63 O2 Sat by Pulse 99 100 100 Oximetry 10/13/21 10:42 Temperature Pulse Rate 117 H Respiratory 16 Rate Blood Pressure 124/99 O2 Sat by Pulse 98 Oximetry Medical Decision Making - Medical Decision Making EKG shows A. fib with rapid ventricular response at 130 bpm QRS is 94 QT interval 300 QTC is 377. Patient's EKG shows no ST segment elevation. Patient was started on a Cardizem drip after Cardizem bolus. Patient also started on heparin. Patient cardioverted and a repeat EKG was done shows sinus rhythm at 63 bpm GA interval 163 QRS is under 10 Q-T intervals 416 QTC is 423 per patient's EKG shows no ST segment elevation or depression. - Lab Data Result diagrams: 10/13/21 10:05 10/13/21 10:05 Lab Results 10/13/21 10/13/21 10/13/21 Range/Units 10:05 10:05 10:05 WBC 5.0 (3.8-10.6) k/uL RBC 4.79 (3.80-5.40) m/uL Hgb 14.7 (11.4-16.0) gm/dL Hct 43.9 (34.0-46.0) % MCV 91.6 (80.0-100.0) fL MCH 30.8 (25.0-35.0) pg MCHC 33.6 (31.0-37.0) g/dL RDW 13.1 (11.5-15.5) % Plt Count 238 (150-450) k/uL MPV 8.4 Neutrophils % 53 % Lymphocytes % 30 % Monocytes % 9 % Eosinophils % 4 % Basophils % 1 % Neutrophils # 2.7 (1.3-7.7) k/uL Lymphocytes # 1.5 (1.0-4.8) k/uL Monocytes # 0.4 (0-1.0) k/uL Eosinophils # 0.2 (0-0.7) k/uL Basophils # 0.1 (0-0.2) k/uL PT 10.4 (9.0-12.0) sec INR 0.9 (<1.2) APTT 24.5 (22.0-30.0) sec Sodium 139 (137-145) mmol/L Potassium 3.7 (3.5-5.1) mmol/L Chloride 107 (98-107) mmol/L Carbon Dioxide 26 (22-30) mmol/L Anion Gap 6 mmol/L BUN 8 (7-17) mg/dL Creatinine 0.68 (0.52-1.04) mg/dL Est GFR (CKD-EPI)AfAm >90 (>60 ml/min/1.73 sqM) Est GFR (CKD-EPI)NonAf >90 (>60 ml/min/1.73 sqM) Glucose 95 (74-99) mg/dL Calcium 9.1 (8.4-10.2) mg/dL Magnesium 2.4 H (1.6-2.3) mg/dL Total Bilirubin 1.2 (0.2-1.3) mg/dL AST 41 H (14-36) U/L ALT 40 H (4-34) U/L Alkaline Phosphatase 122 (38-126) U/L Troponin I (0.000-0.034) ng/mL Total Protein 7.1 (6.3-8.2) g/dL Albumin 4.2 (3.5-5.0) g/dL 10/13/21 Range/Units 10:05 WBC (3.8-10.6) k/uL RBC (3.80-5.40) m/uL Hgb (11.4-16.0) gm/dL Hct (34.0-46.0) % MCV (80.0-100.0) fL MCH (25.0-35.0) pg MCHC (31.0-37.0) g/dL RDW (11.5-15.5) % Plt Count (150-450) k/uL MPV Neutrophils % % Lymphocytes % % Monocytes % % Eosinophils % % Basophils % % Neutrophils # (1.3-7.7) k/uL Lymphocytes # (1.0-4.8) k/uL Monocytes # (0-1.0) k/uL Eosinophils # (0-0.7) k/uL Basophils # (0-0.2) k/uL PT (9.0-12.0) sec INR (<1.2) APTT (22.0-30.0) sec Sodium (137-145) mmol/L Potassium (3.5-5.1) mmol/L Chloride (98-107) mmol/L Carbon Dioxide (22-30) mmol/L Anion Gap mmol/L BUN (7-17) mg/dL Creatinine (0.52-1.04) mg/dL Est GFR (CKD-EPI)AfAm (>60 ml/min/1.73 sqM) Est GFR (CKD-EPI)NonAf (>60 ml/min/1.73 sqM) Glucose (74-99) mg/dL Calcium (8.4-10.2) mg/dL Magnesium (1.6-2.3) mg/dL Total Bilirubin (0.2-1.3) mg/dL AST (14-36) U/L ALT (4-34) U/L Alkaline Phosphatase (38-126) U/L Troponin I <0.012 (0.000-0.034) ng/mL Total Protein (6.3-8.2) g/dL Albumin (3.5-5.0) g/dL Critical Care Time Critical Care Time: Yes Total Critical Care Time: 35 Disposition Clinical Impression: Atrial fibrillation with rapid ventricular response Disposition: ADMITTED IP TO THIS HOSP Referrals: Nusrat Conway DO [Primary Care Provider] - 1-2 days Time of Disposition: 10:51
[2021-10-13] MEDS ORDERED: HEPARIN SODIUM 1,000 UN/ML (10ML VL) IV ONE (10:06)
[2021-10-13] MEDS: DILTIAZEM 125 MG in SODIUM CHLORIDE 0.9% 100 ML IV SCH (10:20)
[2021-10-13] MEDS: HEPARIN SOD,PORK IN 0.45% NACL 25,000 UNIT in 0.45% NACL 1 250ML.BAG IV SCH (10:21)
[2021-10-13 10:33] LABS: Basophils # (A) 0.1 k/uL (0-0.2); Basophils % (A) 1 %; Eosinophils # (A) 0.2 k/uL (0-0.7); Eosinophils % (A) 4 %; HCT 43.9 % (34.0-46.0); HGB 14.7 gm/dL (11.4-16.0); INR 0.9 (<1.2); Lymphocytes # (A) 1.5 k/uL (1.0-4.8); Lymphocytes % (A) 30 %; MCH 30.8 pg (25.0-35.0); MCHC 33.6 g/dL (31.0-37.0); MCV 91.6 fL (80.0-100.0); Mean Platelet Volume 8.4; Monocytes # (A) 0.4 k/uL (0-1.0); Monocytes % (A) 9 %; Neutrophils # (A) 2.7 k/uL (1.3-7.7); Neutrophils % (A) 53 %; Partial Thromboplastin Time 24.5 sec (22.0-30.0); Platelet Count 238 k/uL (150-450); Prothrombin Time 10.4 sec (9.0-12.0); RBC 4.79 m/uL (3.80-5.40); RDW 13.1 % (11.5-15.5)
[2021-10-13 10:45] LABS: ALT 40 U/L (4-34); AST 41 U/L (14-36); African American GFR (CKD) >90 (>60 ml/min/1.73 sqM); Albumin 4.2 g/dL (3.5-5.0); Alkaline Phosphatase 122 U/L (38-126); Anion Gap 6 mmol/L; Blood Urea Nitrogen 8 mg/dL (7-17); Calcium 9.1 mg/dL (8.4-10.2); Carbon Dioxide 26 mmol/L (22-30); Chloride 107 mmol/L (98-107); Glucose 95 mg/dL (74-99); Magnesium 2.4 mg/dL (1.6-2.3); Non-African American GFR(CKD) >90 (>60 ml/min/1.73 sqM); Potassium 3.7 mmol/L (3.5-5.1); Sodium 139 mmol/L (137-145); Total Bilirubin 1.2 mg/dL (0.2-1.3); Total Protein 7.1 g/dL (6.3-8.2)
[2021-10-13 11:05] LABS: Amphetamine Screen,Urine Not Detected (NotDetected); Barbiturate Screen,Urine Not Detected (NotDetected); Benzodiazepines Screen,Urine Not Detected (NotDetected); Cocaine Screen,Urine Not Detected (NotDetected); Methadone Screen, Urine Not Detected (NotDetected); Opiate Screen,Urine Not Detected (NotDetected); Oxycodone Screen, Urine Not Detected (NotDetected); Phencyclidine Screen,Urine Not Detected (NotDetected); Tricyclic Antidepressant,Urine Not Detected (NotDetected); Urn Cannabinoid Scrn Not Detected (NotDetected)
--- NOTE | 2021-10-13 11:13 | XR ---
EXAMINATION TYPE: XR chest 2V DATE OF EXAM: 10/13/2021 COMPARISON: Chest x-ray 06/18/2019 HISTORY: Dysrhythmia TECHNIQUE: Frontal and lateral views of the chest are obtained. FINDINGS: There is no focal air space opacity, pleural effusion, or pneumothorax seen. The cardiac silhouette size is within normal limits. There are overlying leads. The osseous structures are intac t. IMPRESSION: No acute cardiopulmonary process.
[2021-10-13] MEDS ORDERED: NITROGLYCERIN SL TABS 0.4 MG TAB SUBLINGUAL PRN (11:34)
[2021-10-13 16:10] LABS: Appearance,Urine Clear (Clear); Bilirubin,Urine Negative (Negative); Blood,Urine Negative (Negative); Color,Urine Colorless; Glucose,Urine (UA) Negative (Negative); Ketones,Urine Negative (Negative); Leukocyte Esterase,Urine Negative (Negative); Nitrite,Urine Negative (Negative); PH, Urine 7.5 (5.0-8.0); Protein,Urine Negative (Negative); Specific Gravity,Urine 1.003 (1.001-1.035); Urobilinogen,Urine <2.0 mg/dL (<2.0)
[2021-10-13] MEDS: HEPARIN SODIUM 1,000 UN/ML (10ML VL) IV PRN (17:38)
[2021-10-13] MEDS ORDERED: WARFARIN 2 MG TAB PO ONE (18:00)
[2021-10-13] MEDS: WARFARIN 5 MG TAB PO SCH (18:45)
--- NOTE | 2021-10-13 21:38 | P.HPIM ---
History of Present Illness This is a pleasant 56 years old female with past medical history of atrial fibrillation, she was not adherent to her Eliquis because she could not afford it. 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 Other chronic medical conditions include , GERD/Reflux, Hyperlipidemia, Osteoarthritis , psoriasis She presents because of palpitation very lightheadedness and dizziness which started around 7:30 o'clock this morning and woke her up from sleep and lasted all she came to emergency room. No chest pain or dyspnea. No abdominal pain or vomiting or diarrhea. No urinary complaints. No headache or weakness some numbness. She complains from chronic right leg swelling and induration. She denies smoking alcohol or illicit drugs On admission her heart rate went up to 151, Jadon vitals are stable and patient is afebrile. Labs including CBC, INR, BMP and liver enzymes are unremarkable. Serial troponins 3 are negative was then 0.012. TSH normal 2.4. Urine analysis is negative. Urine drug screen is negative. EKG: A. fib and RVR at 1:30 Tu EKG showing heart rate at [address]-T changes Chest x-ray: No acute process. Review of Systems CONSTITUTIONAL: No fever, no malaise, no fatigue. HEENT: No recent visual problems or hearing problems. Denied any sore throat. CARDIOVASCULAR: No orthopnea, PND, no palpitations, no syncope. PULMONARY: No shortness of breath, no cough, no hemoptysis. GASTROINTESTINAL: No diarrhea, no nausea, no vomiting, no abdominal pain. Normoactive bowel sounds. NEUROLOGICAL: No headaches, no weakness, no numbness. HEMATOLOGICAL: Denies any bleeding or petechiae. GENITOURINARY: Denies any burning micturition, frequency, or urgency. MUSCULOSKELETAL/RHEUMATOLOGICAL: Denies any joint pain, swelling, or any muscle pain. ENDOCRINE: Denies any polyuria or polydipsia. Past Medical History Past Medical History: Atrial Fibrillation, GERD/Reflux, Hyperlipidemia, Osteoarthritis (OA), Skin Disorder Additional Past Medical History / Comment(s): PSORIASIS, abnormal stress test, hernia in "abdomen", constipation, History of Any Multi-Drug Resistant Organisms: None Reported Past Surgical History: Orthopedic Surgery Additional Past Surgical History / Comment(s): ganglion CYST REMOVED rt hand, TRIGGER THUMB rt hand Past Anesthesia/Blood Transfusion Reactions: Motion Sickness Past Psychological History: No Psychological Hx Reported Past Alcohol Use History: None Reported Past Drug Use History: None Reported - Past Family History Mother Family Medical History: Cancer Additional Family Medical History / Comment(s): SKIN CA Father Family Medical History: Coronary Artery Disease (CAD), Diabetes Mellitus Medications and Allergies Home Medications Medication Instructions Recorded Confirmed Type Metoprolol Succinate [Toprol XL] 100 mg PO HS 06/18/19 10/13/21 History Aspirin [Adult Low Dose Aspirin EC] 81 mg PO HS 07/26/19 10/13/21 History Cholecalciferol [Vitamin D3 (25 25 mcg PO HS 10/13/21 10/13/21 History Mcg = 1000 Iu)] Allergies Allergy/AdvReac Type Severity Reaction Status Date / Time cephalexin [From Keflex] Allergy Anaphylaxis Verified 10/13/21 11:06 tetracycline Allergy Anaphylaxis Verified 10/13/21 11:06 Physical Exam Vitals: Vital Signs Temp Pulse Resp BP Pulse Ox 10/13/21 20:00 60 16 104/44 10/13/21 18:47 62 16 97/47 96 10/13/21 17:25 61 16 120/54 96 10/13/21 15:25 51 L 16 112/50 98 10/13/21 13:12 59 L 16 131/57 100 10/13/21 11:30 60 16 104/54 100 10/13/21 10:42 117 H 16 124/99 98 10/13/21 10:27 98 16 96/63 100 10/13/21 09:56 151 H 18 101/86 100 10/13/21 09:35 98.2 F 70 18 137/68 99 Intake and Output 10/13/21 10/13/21 10/13/21 06:59 14:59 22:59 Intake Total 72.826 Balance 72.826 Intake: Intake, IV Titration 72.826 Amount Heparin Sod,Pork in 0.45% 72.826 NaCl 25,000 unit In 0.45 % NaCl 1 250ml.bag @ 8. 998 UNITS/KG/HR 9.999 mls /hr IV .Q24H [facility] Rx#: [id number] Other: Weight 111.13 kg -GENERAL: The patient is alert and oriented x3, not in any acute distress. Morbidly obese HEENT: Pupils are round and equally reacting to light. EOMI. No scleral icterus. No conjunctival pallor. Normocephalic, atraumatic. No pharyngeal erythema. No thyromegaly. CARDIOVASCULAR: S1 and S2 present. No murmurs, rubs, or gallops. PULMONARY: Chest is clear to auscultation, no wheezing or crackles. ABDOMEN: Soft, nontender, nondistended, normoactive bowel sounds. No palpable organomegaly. MUSCULOSKELETAL: No joint swelling or deformity. EXTREMITIES: No cyanosis, clubbing, or pedal edema. NEUROLOGICAL: Gross neurological examination did not reveal any focal deficits. SKIN: No rashes. No petechiae Results CBC & Chem 7: 10/13/21 10:05 10/13/21 10:05 Labs: Abnormal Lab Results - Last 24 Hours (Table) 10/13/21 10/13/21 Range/Units 10:05 16:02 APTT 34.8 H (22.0-30.0) sec Magnesium 2.4 H (1.6-2.3) mg/dL AST 41 H (14-36) U/L ALT 40 H (4-34) U/L Assessment and Plan Assessment: A. fib and RVR Nonadherence to therapy, Because of financial issues Chronic right leg swelling History of GERD History of osteoarthritis Hyperlipidemia History of psoriasis Morbidly obese Plan: This is a pleasant 56 years old female who presents with A. fib and RVR. Continue with heparin drip I discussed with the patient about anticoagulation she agrees to start on warfarin and follow-up to check her INR. Patient informed her goal INR is 2-3 and she verbalized understanding. Start warfarin today Cardiology consult Continue with Cardizem drip and switched to oral. Continue with metoprolol 100 mg daily Labs and medication were reviewed.. Continue same treatment. Continue with symptomatic treatment. Resume home medication. Monitor lytes and vitals. DVT and GI prophylaxis. Further recommendations depends on the clinical course of the patient DVT prophylaxis: heparin GI Prophylaxis: Pepcid PT/OT: Pending Prognosis is guarded
[2021-10-13] MEDS: METOPROLOL SUCCINATE (ER) 100 MG TAB.ER.24H PO SCH (22:44)
[2021-10-14 07:54] LABS: Basophils % (A) 1 %; Eosinophils # (A) 0.2 k/uL (0-0.7); Eosinophils % (A) 6 %; HCT 37.7 % (34.0-46.0); HGB 12.5 gm/dL (11.4-16.0); Lymphocytes % (A) 29 %; MCH 31.2 pg (25.0-35.0); MCHC 33.1 g/dL (31.0-37.0); MCV 94.3 fL (80.0-100.0); Mean Platelet Volume 8.8; Monocytes # (A) 0.2 k/uL (0-1.0); Monocytes % (A) 7 %; Neutrophils # (A) 1.8 k/uL (1.3-7.7); Neutrophils % (A) 54 %; Platelet Count 181 k/uL (150-450); RDW 13.4 % (11.5-15.5); WBC 3.4 k/uL (3.8-10.6)
[2021-10-14 07:55] LABS: Prothrombin Time 11.1 sec (9.0-12.0)
[2021-10-14 08:07] LABS: African American GFR (CKD) >90 (>60 ml/min/1.73 sqM); Anion Gap 7 mmol/L; Blood Urea Nitrogen 10 mg/dL (7-17); Calcium 8.3 mg/dL (8.4-10.2); Carbon Dioxide 22 mmol/L (22-30); Chloride 110 mmol/L (98-107); Glucose 88 mg/dL (74-99); Magnesium 2.4 mg/dL (1.6-2.3); Non-African American GFR(CKD) >90 (>60 ml/min/1.73 sqM); Potassium 3.9 mmol/L (3.5-5.1); Sodium 139 mmol/L (137-145)
[2021-10-14] MEDS: HEPARIN SOD,PORK IN 0.45% NACL 25,000 UNIT in 0.45% NACL 1 250ML.BAG IV SCH ×2 (08:22→23:48)
[2021-10-14] MEDS: DILTIAZEM 125 MG in SODIUM CHLORIDE 0.9% 100 ML IV SCH (08:23)
[2021-10-14] MEDS: ASPIRIN 325 MG TAB PO SCH (08:28)
[2021-10-14] MEDS ORDERED: FAMOTIDINE 20 MG/2 ML VIAL IV SCH (09:00)
[2021-10-14] MEDS: ACETAMINOPHEN TAB 325 MG TAB PO PRN ×2 (10:08→23:47)
--- NOTE | 2021-10-14 10:32 | P.CRDCN ---
History of Present Illness Consult date: 10/14/21 History of present illness: HISTORY OF PRESENT ILLNESS: This is a 56-year-old female with a past medical history significant for paroxysmal atrial fibrillation and hyperlipidemia (not on statin therapy). Patient follows in the office with Dr. Denis but states she has not seen him since 2020 because she lost her insurance. We have been asked to see the patient in consultation for A. fib with RVR. Patient examined at the bedside. Patient presents to emergency room with chief complaint of palpitations. She states she woke up at 4 AM and felt her heart racing. The patient was found to be in A. fib with RVR. She was started on IV Cardizem and subsequently converted to sinus mechanism. She is maintaining sinus mechanism this morning. The patient takes metoprolol succinate 100 mg at night at home. She states that she used to be on Eliquis but has not taken it recently because she lost her insurance and cannot afford it. * EKG reveals A. fib with RVR * Chest xray negative for acute process * Laboratory data: WBC 3.4. Hemoglobin 12.5. Platelet count 181. Sodium 139. Potassium 3.9. BUN 10. Creatinine 0.70. Magnesium 2.4. Troponin negative 3. TSH 2.410. * Current home cardiac medications include metoprolol succinate 100 mg at night and aspirin 81 mg daily. * Most recent echocardiogram obtained in May 2019 revealed ejection fraction 55-60%, [id number] mitral regurgitation, mild tricuspid regurgitation * Cardiac catheterization history: July 2019 revealing acceptable filling pressures, no gradient across aortic valve, a right dominant system without obstructive coronary artery disease REVIEW OF SYSTEMS: At the time of my exam: CONSTITUTIONAL: Denies fever or chills. HEENT: Denies blurred vision, vision changes, or eye pain. Denies hemoptysis CARDIOVASCULAR: Denies chest pain. Denies orthopnea. Denies PND. Denies palpitations RESPIRATORY: Denies shortness of breath. GASTROINTESTINAL: Denies abdominal pain. Denies nausea or vomiting. HEMATOLOGIC: Denies bleeding disorders. GENITOURINARY: Denies any blood in urine. SKIN: Denies pruitis. Denies rash. PHYSICAL EXAM: VITAL SIGNS: Reviewed. GENERAL: Well-developed in no acute distress. HEENT: Head is normocephalic. Pupils are equal, round. Sclerae anicteric. Mucous membranes of the mouth are moist. Neck supple. No JVD or thyromegaly LUNGS: Respirations even and unlabored. Lungs essentially clear to auscultation bilaterally. HEART: Regular rate and rhythm. S1 and S2 heard. ABDOMEN: Soft. Nondistended. Nontender. EXTREMITIES: Normal range of motion. No clubbing or cyanosis. Peripheral pulses intact. No lower extremity edema NEUROLOGIC: Awake and alert. Oriented x 3. ASSESSMENT: Palpitations Paroxysmal atrial fibrillation with RVR Hyperlipidemia, per patient, not on statin therapy Medication noncompliance secondary to financial difficulty PLAN: Obtain 2-D echo to assess cardiac structure and function Patient is agreeable to begin Coumadin. Continue IV heparin Continue telemetry monitoring Continue metoprolol Patient may be discharged home this afternoon from a cardiac standpoint and follow up on an outpatient basis. Nurse practitioner note has been reviewed by physician. Signing provider agrees with the documented findings, assessment, and plan of care. Past Medical History Past Medical History: Atrial Fibrillation, GERD/Reflux, Hyperlipidemia, O steoarthritis (OA), Skin Disorder Additional Past Medical History / Comment(s): PSORIASIS, abnormal stress test, hernia in "abdomen", constipation, History of Any Multi-Drug Resistant Organisms: None Reported Past Surgical History: Orthopedic Surgery Additional Past Surgical History / Comment(s): ganglion CYST REMOVED rt hand, TRIGGER THUMB rt hand Past Anesthesia/Blood Transfusion Reactions: Motion Sickness Past Psychological History: No Psychological Hx Reported Smoking Status: Never smoker Past Alcohol Use History: None Reported Past Drug Use History: None Reported - Past Family History Mother Family Medical History: Cancer Additional Family Medical History / Comment(s): SKIN CA Father Family Medical History: Coronary Artery Disease (CAD), Diabetes Mellitus Medications and Allergies Home Medications Medication Instructions Recorded Confirmed Type Metoprolol Succinate [Toprol XL] 100 mg PO HS 06/18/19 10/13/21 History Aspirin [Adult Low Dose Aspirin EC] 81 mg PO HS 07/26/19 10/13/21 History Cholecalciferol [Vitamin D3 (25 25 mcg PO HS 10/13/21 10/13/21 History Mcg = 1000 Iu)] Allergies Allergy/AdvReac Type Severity Reaction Status Date / Time cephalexin [From Keflex] Allergy Anaphylaxis Verified 10/13/21 11:06 tetracycline Allergy Anaphylaxis Verified 10/13/21 11:06 Physical Exam Vitals: Vital Signs Temp Pulse Pulse Resp BP BP Pulse Ox 10/14/21 04:00 98.3 F 63 12 119/65 98 10/14/21 00:00 98.3 F 58 L 12 90/46 99 10/13/21 21:47 98.4 F 60 12 127/61 99 10/13/21 20:00 60 16 104/44 10/13/21 18:47 62 16 97/47 96 10/13/21 17:25 61 16 120/54 96 10/13/21 15:25 51 L 16 112/50 98 10/13/21 13:12 59 L 16 131/57 100 10/13/21 11:30 60 16 104/54 100 10/13/21 10:42 117 H 16 124/99 98 10/13/21 10:27 98 16 96/63 100 10/13/21 09:56 151 H 18 101/86 100 10/13/21 09:35 98.2 F 70 18 137/68 99 Intake and Output 10/13/21 10/14/21 10/14/21 22:59 06:59 14:59 Intake Total 72.826 Balance 72.826 Intake: Intake, IV Titration 72.826 Amount Heparin Sod,Pork in 0.45% 72.826 NaCl 25,000 unit In 0.45 % NaCl 1 250ml.bag @ 8. 998 UNITS/KG/HR 9.999 mls /hr IV .Q24H [facility] Rx#: [id number] Other: Voiding Method Toilet Toilet # Voids 1 2 Weight 111.13 kg Results 10/14/21 06:57 10/14/21 06:57 Cardiac Enzymes 10/13/21 10/13/21 10/13/21 Range/Units 10:05 10:05 12:54 AST 41 H (14-36) U/L Troponin I <0.012 <0.012 (0.000-0.034) ng/mL 10/13/21 Range/Units 16:02 AST (14-36) U/L Troponin I <0.012 (0.000-0.034) ng/mL Coagulation 10/13/21 10/13/21 10/14/21 Range/Units 10:05 16:02 00:00 PT 10.4 (9.0-12.0) sec APTT 24.5 34.8 H 45.4 H (22.0-30.0) sec 10/14/21 Range/Units 06:57 PT 11.1 (9.0-12.0) sec APTT (22.0-30.0) sec CBC 10/13/21 10/14/21 Range/Units 10:05 06:57 WBC 5.0 3.4 L (3.8-10.6) k/uL RBC 4.79 4.00 (3.80-5.40) m/uL Hgb 14.7 12.5 (11.4-16.0) gm/dL Hct 43.9 37.7 (34.0-46.0) % Plt Count 238 181 (150-450) k/uL Comprehensive Metabolic Panel 10/13/21 10/14/21 Range/Units 10:05 06:57 Sodium 139 139 (137-145) mmol/L Potassium 3.7 3.9 (3.5-5.1) mmol/L Chloride 107 110 H (98-107) mmol/L Carbon Dioxide 26 22 (22-30) mmol/L BUN 8 10 (7-17) mg/dL Creatinine 0.68 0.70 (0.52-1.04) mg/dL Glucose 95 88 (74-99) mg/dL Calcium 9.1 8.3 L (8.4-10.2) mg/dL AST 41 H (14-36) U/L ALT 40 H (4-34) U/L Alkaline Phosphatase 122 (38-126) U/L Total Protein 7.1 (6.3-8.2) g/dL Albumin 4.2 (3.5-5.0) g/dL Current Medications Generic Name Dose Route Start Last Admin Trade Name Freq PRN Reason Stop Dose Admin Aspirin 325 mg 10/14/21 09:00 Aspirin 325 Mg Tab PO DAILY [facility] Famotidine 20 mg 10/14/21 09:00 Famotidine 20 Mg/2 Ml Vial IV Q12HR [facility] Heparin Sodium (Porcine) 0 unit 10/13/21 17:32 10/13/21 17:38 Heparin Sodium 1,000 Un/Ml (10ml Vl) IV 4,000 unit PER PROTOCOL PRN Administration Low PTT Protocol Diltiazem HCl 125 mg/ Sodium 125 mls @ 5 mls/hr 10/13/21 10:15 10/13/21 10:20 Chloride IV 5 mg/hr .Q24H [facility] 5 mls/hr Administration 5 MG/HR Heparin Sodium/Sodium Chloride 250 mls @ 9.999 mls/hr 10/13/21 10:15 10/13/21 17:38 25,000 unit/ Sodium Chloride IV 11.998 units/kg/hr .Q24H [facility] 13.333 mls/hr Titration Protocol 8.998 UNITS/KG/HR Metoprolol Succinate 100 mg 10/13/21 21:00 10/13/21 22:44 Metoprolol Succinate (Er) 100 Mg Tab.Er.24h PO Not Given [facility] Miscellaneous Information 0 each 10/13/21 15:03 Warfarin Per Pharmacy MISCELLANE DIRECTED PRN PER PROTOCOL Nitroglycerin 0.4 mg 10/13/21 11:34 Nitroglycerin Sl Tabs 0.4 Mg Tab SUBLINGUAL Q5M PRN Chest Pain Warfarin Sodium 5 mg 10/13/21 18:00 10/13/21 18:45 Warfarin 5 Mg Tab PO 5 mg DAILY@1800 [facility] Administration Protocol Intake and Output 10/13/21 10/14/21 10/14/21 22:59 06:59 14:59 Intake Total 72.826 Balance 72.826 Intake: Intake, IV Titration 72.826 Amount Heparin Sod,Pork in 0.45% 72.826 NaCl 25,000 unit In 0.45 % NaCl 1 250ml.bag @ 8. 998 UNITS/KG/HR 9.999 mls /hr IV .Q24H [facility] Rx#: [id number] Other: Voiding Method Toilet Toilet # Voids 1 2 Weight 111.13 kg 10/14/21 06:57 10/14/21 06:57
[2021-10-14 11:00] LABS: LDL Cholesterol,Calculated 106.6 mg/dL (0.0-131.0)
[2021-10-14] MEDS: WARFARIN 5 MG TAB PO SCH (17:22)
[2021-10-14] MEDS ORDERED: WARFARIN 5 MG TAB PO SCH (18:00)
--- NOTE | 2021-10-14 18:10 | P.PN ---
Subjective This is a pleasant 56 years old female with past medical history of atrial fibrillation, she was not adherent to her Eliquis because she could not afford it. 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 Other chronic medical conditions include , GERD/Reflux, Hyperlipidemia, Osteoarthritis , psoriasis She presents because of palpitation very lightheadedness and dizziness which started around 7:30 o'clock this morning and woke her up from sleep and lasted all she came to emergency room. No chest pain or dyspnea. No abdominal pain or vomiting or diarrhea. No urinary complaints. No headache or weakness some numbness. She complains from chronic right leg swelling and induration. She denies smoking alcohol or illicit drugs On admission her heart rate went up to 151, Jadon vitals are stable and patient is afebrile. Labs including CBC, INR, BMP and liver enzymes are unremarkable. Serial troponins 3 are negative was then 0.012. TSH normal 2.4. Urine analysis is negative. Urine drug screen is negative. EKG: A. fib and RVR at 1:30 Tu EKG showing heart rate at [address]-T changes Chest x-ray: No acute process. 10/15/2011 Patient is improving, no lightheadedness, no palpitation Vital table and heart rate controlled labs stable Patient continued on Coumadin and heparin drip Material Disposition Inspector on the case recommended echocardiogram and follow-up outpatient however patient still on IV heparin for now. Check INR tomorrow Objective - Vital Signs Vital signs: Vital Signs Temp 98.4 F 10/14/21 08:23 Pulse 68 10/14/21 08:23 Resp 16 10/14/21 08:23 BP 129/62 10/14/21 08:23 Pulse Ox 98 10/14/21 08:23 FiO2 Intake & Output 10/13/21 10/14/21 10/14/21 18:59 06:59 18:59 Intake Total 72.826 Balance 72.826 Weight 111.13 kg 111.13 kg Intake: Intake, IV Titration 72.826 Amount Heparin Sod,Pork in 0.45% 72.826 NaCl 25,000 unit In 0.45 % NaCl 1 250ml.bag @ 8. 998 UNITS/KG/HR 9.999 mls /hr IV .Q24H [facility] Rx#: [id number] Other: Voiding Method Toilet Toilet # Voids 2 - Exam GENERAL: The patient is alert and oriented x3, not in any acute distress. Well developed, well nourished. HEENT: Pupils are round and equally reacting to light. EOMI. No scleral icterus. No conjunctival pallor. Normocephalic, atraumatic. No pharyngeal erythema. No thyromegaly. CARDIOVASCULAR: S1 and S2 present. No murmurs, rubs, or gallops. PULMONARY: Chest is clear to auscultation, no wheezing or crackles. ABDOMEN: Soft, nontender, nondistended, normoactive bowel sounds. No palpable organomegaly. MUSCULOSKELETAL: No joint swelling or deformity. EXTREMITIES: No cyanosis, clubbing, or pedal edema. NEUROLOGICAL: Gross neurological examination did not reveal any focal deficits. SKIN: No rashes. no petechiae. - Labs CBC & Chem 7: 10/14/21 06:57 10/14/21 06:57 Labs: Abnormal Lab Results - Last 24 Hours (Table) 10/13/21 10/14/21 10/14/21 Range/Units 16:02 00:00 06:57 WBC (3.8-10.6) k/uL APTT 34.8 H 45.4 H (22.0-30.0) sec Chloride 110 H (98-107) mmol/L Calcium 8.3 L (8.4-10.2) mg/dL Magnesium 2.4 H (1.6-2.3) mg/dL 10/14/21 Range/Units 06:57 WBC 3.4 L (3.8-10.6) k/uL APTT (22.0-30.0) sec Chloride (98-107) mmol/L Calcium (8.4-10.2) mg/dL Magnesium (1.6-2.3) mg/dL Assessment and Plan Assessment: A. fib and RVR Nonadherence to therapy, Because of financial issues Chronic right leg swelling History of GERD History of osteoarthritis Hyperlipidemia History of psoriasis Morbidly obese Plan: This is a pleasant 56 years old female who presents with A. fib and RVR. Continue with heparin drip I continue with warfarin and heparin drip. Follow-up INR Continue with cardiology consult Continue with metoprolol 100 mg daily Labs and medication were reviewed.. Continue same treatment. Continue with symptomatic treatment. Resume home medication. Monitor lytes and vitals. DVT and GI prophylaxis. Further recommendations depends on the clinical course of the patient DVT prophylaxis: heparin and common GI Prophylaxis: Pepcid PT/OT: Home health care
[2021-10-14] MEDS: FAMOTIDINE 20 MG TAB PO SCH (21:01)
[2021-10-14] MEDS: METOPROLOL SUCCINATE (ER) 100 MG TAB.ER.24H PO SCH (23:42)
[2021-10-14] MEDS: HEPARIN SODIUM 1,000 UN/ML (10ML VL) IV PRN (23:50)
[2021-10-15] MEDS: ASPIRIN 325 MG TAB PO SCH (07:43)
[2021-10-15] MEDS: FAMOTIDINE 20 MG TAB PO SCH (07:43)
[2021-10-15 08:06] VITALS: RESP 18; TEMP 98.2
--- NOTE | 2021-10-15 09:46 | CA ---
Transthoracic Echo Report Name: Frieda Power Age: 56 Gender: F : 1965 Exam Date: 10/14/2021 07:36 Exam Location: [facility] Ht (in): 65 Wt (lb): 245 Ordering Physician: Lyssa Wade Attending/Referring Phys: [id number], Mauro Senior Data Scientist Peg Willis, CARLOS Procedure CPT: Indications: LV Function, afib Cardiac Hx: Technical Quality: Good Contrast 1: N/A Total Dose (mL): Contrast 2: Total Dose (mL): MEASUREMENTS (Male / Female) Normal Values 2D ECHO LV Diastolic Diameter PLAX 4.2 cm 4.2 - 5.9 / 3.9 - 5.3 cm LV Systolic Diameter PLAX 3.3 cm IVS Diastolic Thickness 1.2 cm 0.6 - 1.0 / 0.6 - 0.9 cm LVPW Diastolic Thickness 1.7 cm 0.6 - 1.0 / 0.6 - 0.9 cm LV Relative Wall Thickness 0.7 RV Internal Dim ED PLAX 3.3 cm LA Systolic Diameter LX 4.2 cm 3.0 - 4.0 / 2.7 - 3.8 cm LA Volume 90.1 cm??? 18 - 58 / 22 - 52 cm??? M-MODE Aortic Root Diameter MM 2.7 cm LA Systolic Diameter MM 4.2 cm LA Ao Ratio MM 1.5 MV E Point Septal Separation 0.8 cm AV Cusp Separation MM 1.8 cm DOPPLER MV Area PHT 3.7 cm??? Mitral E Point Velocity 86.3 cm/s Mitral A Point Velocity 67.7 cm/s Mitral E to A Ratio 1.3 MV Deceleration Time 205.3 ms MV E' Velocity 5.5 cm/s Mitral E to MV E' Ratio 15.7 TR Peak Velocity 241.4 cm/s TR Peak Gradient 23.3 mmHg Right Ventricular Systolic Press 28.3 mmHg FINDINGS Left Ventricle Normal Left ventricular size, wall thickness, systolic function with no obvious regional wall motion abnormalities. Left ventricular ejection fraction is estimated at 50-55 %. Right Ventricle Normal right ventricular size and function. Right Atrium Normal right atrial size. Left Atrium Mildly increased left atrial diameter. Severely increased left atrial volume. Mildly increased left atrial area. Mitral Valve Structurally normal mitral valve. Mild mitral regurgitation. Aortic Valve Trileaflet aortic valve. No aortic valve stenosis or regurgitation. Tricuspid Valve Structurally normal tricuspid valve. Mild tricuspid regurgitation. Pulmonic Valve Structurally normal pulmonic valve. Pericardium Normal pericardium. Aorta Normal size aortic root and proximal ascending aorta. CONCLUSIONS Normal LV size and systolic function Left atrial enlargement Previewed by: Dr. Rudy Ballesteros MD (Electronically Signed) Final Date: 15 October 2021 09:44
[2021-10-15 10:21] LABS: INR 1.2 (<1.2); Partial Thromboplastin Time 60.8 sec (22.0-30.0); Prothrombin Time 12.6 sec (9.0-12.0)
[2021-10-15 11:21] VITALS: BP 116/70; PULSE 64
--- NOTE | 2021-10-15 12:34 | P.PN ---
Subjective Progress Note Date: 10/15/21 HISTORY OF PRESENT ILLNESS: This is a 56-year-old female with a past medical history significant for paroxysmal atrial fibrillation and hyperlipidemia (not on statin therapy). Patient follows in the office with Dr. Denis but states she has not seen him since 2020 because she lost her insurance. We have been asked to see the patient in consultation for A. fib with RVR. Patient examined at the bedside. Patient presents to emergency room with chief complaint of palpitations. She states she woke up at 4 AM and felt her heart racing. The patient was found to be in A. fib with RVR. She was started on IV Cardizem and subsequently converted to sinus mechanism. She is maintaining sinus mechanism this morning. The patient takes metoprolol succinate 100 mg at night at home. She states that she used to be on Eliquis but has not taken it recently because she lost her in surance and cannot afford it. * EKG reveals A. fib with RVR * Chest xray negative for acute process * Laboratory data: WBC 3.4. Hemoglobin 12.5. Platelet count 181. Sodium 139. Potassium 3.9. BUN 10. Creatinine 0.70. Magnesium 2.4. Troponin negative 3. TSH 2.410. * Current home cardiac medications include metoprolol succinate 100 mg at night and aspirin 81 mg daily. * Most recent echocardiogram obtained in May 2019 revealed ejection fraction 55-60%, [id number] mitral regurgitation, mild tricuspid regurgitation * Cardiac catheterization history: July 2019 revealing acceptable filling pressures, no gradient across aortic valve, a right dominant system without obstructive coronary artery disease 10/15/2021 Patient examined this morning at the bedside. Patient denies chest pain or pressure. She denies shortness of breath. Telemetry reveals sinus mechanism with a heart rate in the 60s. Patient remains on IV heparin and Coumadin. Echocardiogram completed revealing preserved systolic function. PHYSICAL EXAM: VITAL SIGNS: Reviewed. GENERAL: Well-developed in no acute distress. HEENT: Head is normocephalic. Pupils are equal, round. Sclerae anicteric. Mucous membranes of the mouth are moist. Neck supple. No JVD or thyromegaly LUNGS: Respirations even and unlabored. Lungs essentially clear to auscultation bilaterally. HEART: Regular rate and rhythm. S1 and S2 heard. ABDOMEN: Soft. Nondistended. Nontender. EXTREMITIES: Normal range of motion. No clubbing or cyanosis. Peripheral pulses intact. No lower extremity edema NEUROLOGIC: Awake and alert. Oriented x 3. ASSESSMENT: Palpitations Paroxysmal atrial fibrillation with RVR Hyperlipidemia, per patient, not on statin therapy Medication noncompliance secondary to financial difficulty PLAN: Continue current cardiac medications Patient may be discharged home this afternoon from a cardiac standpoint and follow up on an outpatient basis. Nurse practitioner note has been reviewed by physician. Signing provider agrees with the documented findings, assessment, and plan of care. Objective - Vital Signs Vital signs: Vital Signs Temp 98.2 F 10/15/21 07:39 Pulse 64 10/15/21 11:20 Resp 18 10/15/21 11:20 BP 116/70 10/15/21 11:20 Pulse Ox 98 10/15/21 11:20 FiO2 Intake & Output 10/14/21 10/15/21 10/15/21 18:59 06:59 18:59 Intake Total 236 177.174 187.45 Balance 236 177.174 187.45 Intake: Intake, IV Titration 177.174 187.45 Amount Heparin Sod,Pork in 0.45% 177.174 187.45 NaCl 25,000 unit In 0.45 % NaCl 1 250ml.bag @ 8. 998 UNITS/KG/HR 9.999 mls /hr IV .Q24H [facility] Rx#: [id number] Oral 236 Other: Voiding Method Toilet Toilet Toilet # Voids 1 3 1 - Labs CBC & Chem 7: 10/14/21 06:57 10/14/21 06:57 Labs: Abnormal Lab Results - Last 24 Hours (Table) 10/14/21 10/15/21 Range/Units 22:58 09:08 PT 12.6 H (9.0-12.0) sec INR 1.2 H (<1.2) APTT 40.1 H 60.8 H (22.0-30.0) sec
--- NOTE | 2021-10-15 23:10 | P.DS ---
Providers Date of admission: 10/13/21 11:34 Attending physician: Lawrence Resendiz Consults: 10/13/21 11:34 Consult Physician Urgent Consulting Provider: [facility] Consult Reason/Comments: A. fib with rapid ventricular response Do you want consulting provider notified?: Yes Primary care physician: Nusrat Arce Hospital Course: Diagnoses: A. fib and RVR, rate controlled and patient was started on anticoagulant Coumadin Nonadherence to therapy, Because of financial issues Chronic right leg swelling History of GERD History of osteoarthritis Hyperlipidemia History of psoriasis Morbidly obese Hospital course: This is a pleasant 56 years old female with past medical history of atrial fibrillation, she was not adherent to her Eliquis because she could not afford it. 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 Other chronic medical conditions include , GERD/Reflux, Hyperlipidemia, Osteoarthritis , psoriasis She presents because of palpitation very lightheadedness and dizziness secondary to A. fib and RVR heart rate went up to 151. She was treated with Cardizem drip and heparin drip and heart rate is controlled and back to baseline and she is continued on metoprolol 100 mg daily. Patient could not afford Eliquis before but now she agrees to Coumadine. Cardiology team has cleared her for discharge on the current management, I discussed the case with marine insurance claim examiner and the found to discontinue aspirin and continue Coumadin. I discussed the anticoagulation treatment with the patient extensively over the last 2 days and today including risks benefits and alternative including but not limited to risk of bleeding into the brain or gently and she verbalized understanding and acceptance. Patient agrees to continue Coumadin however she declined bridging with Lovenox because of high risk of bleeding and she agrees to going check her INR with her PCP Dr. Arce office on this coming Tuesday. I called the office of Dr. Arce but he wasn't available. So I appointment made for patient with his MARLEY Rizo which patient confirms to me she sees an outpatient. MARLEY Rizo was not available to talk to so I discussed the case with her colleague MARLEY Worthington to check her INR on Tuesday. Goal INR is 2-3 patient informed and she agrees with all the above and management plan Today patient is back to baseline and she denies any symptoms. No chest pain or dyspnea. No headache or lightheadedness. No weakness or numbness. No change in urine or bowel habits. No fever. Patient was cleared for discharge by marine insurance claim examiner. Problems and management plan were discussed with the patient and he verbalized understanding and acceptance Patient was found stable and can be discharged home however he needs follow-up as an outpatient. Patient was instructed to follow up with PCP within one week and patient agrees With the appointments made for her stating she will follow-up. Also patient was instructed to follow up with her marine insurance claim examiner Dr. Denis in one week and she agrees Physical exam Gen: patient is a AAOx3, no distress CVS: S1-S2, RRR, no murmur Lungs: B/L CTA, no wheezing Abdomen: soft, no distention, no tenderness, positive bowel sounds Extremity: no leg edema or induration Time spent more than 35 minutes Plan - Discharge Summary New Discharge Prescriptions: New Warfarin [Coumadin] 5 mg PO DAILY@1800 14 Days #14 tab Continue Metoprolol Succinate [Toprol XL] 100 mg PO HS Cholecalciferol [Vitamin D3 (25 Mcg = 1000 Iu)] 25 mcg PO HS Discontinued Aspirin [Adult Low Dose Aspirin EC] 81 mg PO HS Discharge Medication List Metoprolol Succinate [Toprol XL] 100 mg PO HS 06/18/19 [History] Cholecalciferol [Vitamin D3 (25 Mcg = 1000 Iu)] 25 mcg PO HS 10/13/21 [History] Warfarin [Coumadin] 5 mg PO DAILY@1800 14 Days #14 tab 10/15/21 [Rx] Follow up Appointment(s)/Referral(s): Nusrat Arce DO [Primary Care Provider] - 10/19/21 9:00 am (with MARLEY rizo) Shonda Denis MD [STAFF PHYSICIAN] - 10/22/21 4:15 pm Patient Instructions/Handouts: A-fib (Atrial Fibrillation) (DC) Activity/Diet/Wound Care/Special Instructions: heart healthy diet acitivity is restricted till you see your doctor Discharge/Stand Alone Forms: Work/School Release Discharge Disposition: HOME SELF-CARE
[2021-10-16] MEDS ORDERED: ASPIRIN 81 MG PO SCH (09:00)
== END 2021-10-15 12:18 | disposition home or self-care (01) | DRG 310 ==
LOC: EC 09:33 → 3SCARD 11:34
PROVIDERS: ADMIT Hospitalist; ATTEND Hospitalist
DX: I48.0 Paroxysmal atrial fibrillation (principal); E66.01 Morbid (severe) obesity due to excess calories; M79.89 Other specified soft tissue disorders; K21.9 Gastro-esophageal reflux disease without esophagitis; I08.1 Rheumatic disorders of both mitral and tricuspid valves; E78.5 Hyperlipidemia, unspecified; K59.00 Constipation, unspecified; R00.2 Palpitations; L40.9 Psoriasis, unspecified; M19.90 Unspecified osteoarthritis, unspecified site; Z59.9 Problem related to housing and economic circumstances, unspecified; Z68.39 Body mass index [BMI] 39.0-39.9, adult; Z91.14 Patient's other noncompliance with medication regimen; Z88.1 Allergy status to other antibiotic agents; Z88.8 Allergy status to other drugs, medicaments and biological substances; Z79.899 Other long term (current) drug therapy; Z79.82 Long term (current) use of aspirin; Z79.01 Long term (current) use of anticoagulants; Z83.3 Family history of diabetes mellitus; Z82.49 Family history of ischemic heart disease and other diseases of the circulatory system; Z80.8 Family history of malignant neoplasm of other organs or systems
CPT/HCPCS: 36415; 71046; 80048; 80053; 80061; 80306; 81003; 83735; 84443; 84484; 85025; 85610; 85730; 93005; 93306; 96365; 96375; 96376; 99291

== ENCOUNTER 2022-02-02 09:14 | Inpatient (IN) | payer OTHER ==
[2022-02-02] MEDS ORDERED: DILTIAZEM DRIP BOLUS FROM BAG 1 MG SOLN IV ONE (09:35)
[2022-02-02 10:08] LABS: INR 2.7 (<1.2); Partial Thromboplastin Time 39.5 sec (22.0-30.0)
--- NOTE | 2022-02-02 10:17 | ED ---
General Adult HPI - General Chief complaint: Shortness of Breath Stated complaint: palpitations, SOB Time Seen by Provider: 02/02/22 09:23 Source: patient, RN notes reviewed Mode of arrival: wheelchair Limitations: no limitations - History of Present Illness Initial comments: 56-year-old female presents emergency Department chief complaint of palpitations and shortness breath. Patient states she started having symptoms last night. Patient does have a history. Feels she's having issues. Patient states that she is on Coumadin. Patient does take metoprolol. Patient states symptoms are not resolving. She does have chronic leg swelling her right leg not worsened usual. Denies abdominal pain. Patient states she feels short of breath mild chest pressure. Patient offers no other complaints. - Related Data Home Medications Medication Instructions Recorded Confirmed Metoprolol Succinate [Toprol XL] 50 mg PO HS@2330 06/18/19 02/02/22 Cholecalciferol [Vitamin D3 (25 25 mcg PO HS@2330 10/13/21 02/02/22 Mcg = 1000 Iu)] Risankizumab-Rzaa [Skyrizi] 1 dose SQ DIRECTED 02/02/22 02/02/22 Warfarin [Coumadin] 5 mg PO MOTHSA@2330 02/02/22 02/02/22 Warfarin [Coumadin] 7.5 mg PO SUTUWEFR@2330 02/02/22 02/02/22 Allergies Allergy/AdvReac Type Severity Reaction Status Date / Time cephalexin [From Keflex] Allergy Anaphylaxis Verified 02/02/22 10:15 tetracycline Allergy Anaphylaxis Verified 02/02/22 10:15 Review of Systems ROS Statement: Those systems with pertinent positive or pertinent negative responses have been documented in the HPI. ROS Other: All systems not noted in ROS Statement are negative. Past Medical History Past Medical History: Atrial Fibrillation, GERD/Reflux, Hyperlipidemia, Osteoarthritis (OA), Skin Disorder Additional Past Medical History / Comment(s): PSORIASIS, abnormal stress test, hernia in "abdomen", constipation, History of Any Multi-Drug Resistant Organisms: None Reported Past Surgical History: Orthopedic Surgery Additional Past Surgical History / Comment(s): ganglion CYST REMOVED rt hand, TRIGGER THUMB rt hand Past Anesthesia/Blood Transfusion Reactions: Motion Sickness Past Psychological History: No Psychological Hx Reported Smoking Status: Never smoker Past Alcohol Use History: None Reported Past Drug Use History: None Reported - Past Family History Mother Family Medical History: Cancer Additional Family Medical History / Comment(s): SKIN CA Father Family Medical History: Coronary Artery Disease (CAD), Diabetes Mellitus General Exam Limitations: no limitations General appearance: alert, in no apparent distress Head exam: Present: atraumatic, normocephalic, normal inspection Eye exam: Present: normal appearance, PERRL, EOMI. Absent: scleral icterus, conjunctival injection, periorbital swelling ENT exam: Present: normal exam, normal oropharynx, mucous membranes moist Neck exam: Present: normal inspection, full ROM. Absent: tenderness, meningismus, lymphadenopathy Respiratory exam: Present: normal lung sounds bilaterally. Absent: respiratory distress, wheezes, rales, rhonchi, stridor Cardiovascular Exam: Present: tachycardia, irregular rhythm, normal heart sounds. Absent: regular rate, normal rhythm, systolic murmur, diastolic murmur, rubs, gallop, clicks GI/Abdominal exam: Present: soft, normal bowel sounds. Absent: distended, tenderness, guarding, rebound, rigid Course Vital Signs 02/02/22 02/02/22 02/02/22 09:17 09:54 10:00 Temperature 97.8 F Pulse Rate 80 136 H 142 H Respiratory 18 18 18 Rate Blood Pressure 165/92 91/60 107/85 O2 Sat by Pulse 100 98 100 Oximetry 02/02/22 11:04 Temperature Pulse Rate 102 H Respiratory 12 Rate Blood Pressure 101/68 O2 Sat by Pulse 98 Oximetry Medical Decision Making - Medical Decision Making 56-year-old female presented for palpitations, shortness breath. Patient found in A. fib RVR. Patient anticoagulated on Coumadin INR 2.7. Patient started on Cardizem with a bolus of 10, confusion at 5. Patient will be admitted as she has persistent atrial fibrillation with RVR for further evaluation monitoring. - Lab Data Result diagrams: 02/02/22 09:54 02/02/22 09:54 Lab Results 02/02/22 02/02/22 02/02/22 Range/Units 09:54 09:54 09:54 WBC 5.2 (3.8-10.6) k/uL RBC 4.67 (3.80-5.40) m/uL Hgb 14.3 (11.4-16.0) gm/dL Hct 41.8 (34.0-46.0) % MCV 89.6 (80.0-100.0) fL MCH 30.6 (25.0-35.0) pg MCHC 34.2 (31.0-37.0) g/dL RDW 14.0 (11.5-15.5) % Plt Count 221 (150-450) k/uL MPV 9.2 PT 27.0 H (9.0-12.0) sec INR 2.7 H (<1.2) APTT 39.5 H (22.0-30.0) sec Sodium 141 (137-145) mmol/L Potassium 4.7 (3.5-5.1) mmol/L Chloride 108 H (98-107) mmol/L Carbon Dioxide 26 (22-30) mmol/L Anion Gap 7 mmol/L BUN 10 (7-17) mg/dL Creatinine 0.69 (0.52-1.04) mg/dL Est GFR (CKD-EPI)AfAm >90 (>60 ml/min/1.73 sqM) Est GFR (CKD-EPI)NonAf >90 (>60 ml/min/1.73 sqM) Glucose 107 H (74-99) mg/dL Calcium 8.8 (8.4-10.2) mg/dL Magnesium 2.3 (1.6-2.3) mg/dL Total Bilirubin 0.8 (0.2-1.3) mg/dL AST 37 H (14-36) U/L ALT 48 H (4-34) U/L Alkaline Phosphatase 116 (38-126) U/L Troponin I (0.000-0.034) ng/mL Total Protein 6.5 (6.3-8.2) g/dL Albumin 3.9 (3.5-5.0) g/dL 02/02/22 Range/Units 09:54 WBC (3.8-10.6) k/uL RBC (3.80-5.40) m/uL Hgb (11.4-16.0) gm/dL Hct (34.0-46.0) % MCV (80.0-100.0) fL MCH (25.0-35.0) pg MCHC (31.0-37.0) g/dL RDW (11.5-15.5) % Plt Count (150-450) k/uL MPV PT (9.0-12.0) sec INR (<1.2) APTT (22.0-30.0) sec Sodium (137-145) mmol/L Potassium (3.5-5.1) mmol/L Chloride (98-107) mmol/L Carbon Dioxide (22-30) mmol/L Anion Gap mmol/L BUN (7-17) mg/dL Creatinine (0.52-1.04) mg/dL Est GFR (CKD-EPI)AfAm (>60 ml/min/1.73 sqM) Est GFR (CKD-EPI)NonAf (>60 ml/min/1.73 sqM) Glucose (74-99) mg/dL Calcium (8.4-10.2) mg/dL Magnesium (1.6-2.3) mg/dL Total Bilirubin (0.2-1.3) mg/dL AST (14-36) U/L ALT (4-34) U/L Alkaline Phosphatase (38-126) U/L Troponin I <0.012 (0.000-0.034) ng/mL Total Protein (6.3-8.2) g/dL Albumin (3.5-5.0) g/dL Critical Care Time Critical Care Time: Yes Total Critical Care Time: 35 Disposition Clinical Impression: Atrial fibrillation with rapid ventricular response, Dyspnea, Palpitations Disposition: ADMITTED IP TO THIS [facility] Condition: Fair Referrals: Nusrat Conway DO [Primary Care Provider] - 1-2 days Time of Disposition: 11:02
[2022-02-02 10:32] LABS: ALT 48 U/L (4-34); AST 37 U/L (14-36); African American GFR (CKD) >90 (>60 ml/min/1.73 sqM); Albumin 3.9 g/dL (3.5-5.0); Alkaline Phosphatase 116 U/L (38-126); Anion Gap 7 mmol/L; Blood Urea Nitrogen 10 mg/dL (7-17); Calcium 8.8 mg/dL (8.4-10.2); Carbon Dioxide 26 mmol/L (22-30); Chloride 108 mmol/L (98-107); Glucose 107 mg/dL (74-99); HCT 41.8 % (34.0-46.0); HGB 14.3 gm/dL (11.4-16.0); MCH 30.6 pg (25.0-35.0); MCHC 34.2 g/dL (31.0-37.0); MCV 89.6 fL (80.0-100.0); Magnesium 2.3 mg/dL (1.6-2.3); Mean Platelet Volume 9.2; Non-African American GFR(CKD) >90 (>60 ml/min/1.73 sqM); Platelet Count 221 k/uL (150-450); Potassium 4.7 mmol/L (3.5-5.1); RBC 4.67 m/uL (3.80-5.40); Sodium 141 mmol/L (137-145); Total Bilirubin 0.8 mg/dL (0.2-1.3); Total Protein 6.5 g/dL (6.3-8.2); WBC 5.2 k/uL (3.8-10.6)
[2022-02-02] MEDS: DILTIAZEM 125 MG in SODIUM CHLORIDE 0.9% 100 ML IV SCH (10:40)
--- NOTE | 2022-02-02 11:14 | XR ---
EXAMINATION TYPE: XR chest 2V DATE OF EXAM: 02/02/2022 COMPARISON: Chest x-ray 10/13/2021 HISTORY: Dysrhythmia TECHNIQUE: Frontal and lateral views of the chest are obtained. FINDINGS: There is no focal air space opacity, pleural effusion, or pneumothorax seen. The cardiac silhouette size is stable, borderline accentuation could be related to rotation. Questionable nodula r density at the level of the aorticopulmonary window. The osseous structures are intact. IMPRESSION: Difficult to exclude mediastinal adenopathy, borderline cardiac size
[2022-02-02] MEDS ORDERED: NALOXONE 0.4 MG/ML 1 ML VIAL IV PRN (11:15)
[2022-02-02 11:16] LABS: Band Neutrophils % 1 %; Eosinophils # (M) 0.36 k/uL (0-0.7); Lymphocytes # (M) 1.77 k/uL (1.0-4.8); Monocytes # (M) 0.62 k/uL (0-1.0); Neutrophils % (M) 46 %; Nucleated Red Blood Cells 0 /100 WBC (0-0); Total Cells Counted 100
[2022-02-02 11:19] LABS: RBC Morphology Normal
[2022-02-02] MEDS: ACETAMINOPHEN TAB 325 MG TAB PO PRN (19:28)
--- NOTE | 2022-02-02 23:12 | P.HPIM ---
History of Present Illness H&P Date: 02/02/22 Chief Complaint: palpitations Patient is an 56-year-old female patient is a 56-year-old female with a known history of atrial fibrillation on anticoagulation with Coumadin, hypertension lipidemia, osteoarthritis and GERD presents to ER with complaints of palpitations and shortness of breath started around around midnight and was not getting any better.. Patient came to ER this morning. Patient does have history of paroxysmal atrial fibrillation on anticoagulation with Coumadin. Patient states that she has been having shortness of breath with palpitations. No leg swelling. No prior history of congestive heart failure. No history of coronary artery disease and stent placement. Denies any fever or chills. Denies any recent illnesses. No nausea vomiting abdominal pain or diarrhea. EKG showed atrial fibrillation with rapid regular rate. Chest x-ray showed difficult to exclude mediastinal adenopathy. Borderline cardiac size. Laboratory data showed INR 2.7 Sodium 141 potassium 4.7 chloride 100 bicarb is 26 BUN 10 and creatinine 0.69, AST 37 ALT 48 and alk phos 118 Troponin x1 negative Review of Systems Constitutional: Patient denies any fever or chills . no Generalized weakness. Abdomen: Patient denied any nausea or vomiting or abd. pain Cardiovascular: Patient does complain of shortness of breath and palpitations. No chest pain. No leg swelling.. Respiratory: patient denied any cough . no sputum production. No shortness of breath Neurologic: Patient denied any numbness or tingling headache. Musculoskeletal: Patient denies any complaints of joint swelling or deformity. Skin: Negative Psychiatric: Negative Endocrine: No heat or cold intolerance. No recent weight gain. Genitourinary: No dysuria or hematuria. All other 14 point ROS negative except the above Past Medical History Past Medical History: Atrial Fibrillation, GERD/Reflux, Hyperlipidemia, Osteoarthritis (OA), Skin Disorder Additional Past Medical History / Comment(s): PSORIASIS, abnormal stress test, hernia in "abdomen", constipation, History of Any Multi-Drug Resistant Organisms: None Reported Past Surgical History: Orthopedic Surgery Additional Past Surgical History / Comment(s): ganglion CYST REMOVED rt hand, TRIGGER THUMB rt hand Past Anesthesia/Blood Transfusion Reactions: Motion Sickness Past Psychological History: No Psychological Hx Reported Smoking Status: Never smoker Past Alcohol Use History: None Reported Past Drug Use History: None Reported - Past Family History Mother Family Medical History: Cancer Additional Family Medical History / Comment(s): SKIN CA Father Family Medical History: Coronary Artery Disease (CAD), Diabetes Mellitus Medications and Allergies Home Medications Medication Instructions Recorded Confirmed Type Metoprolol Succinate [Toprol XL] 50 mg PO HS@2330 06/18/19 02/02/22 History Cholecalciferol [Vitamin D3 (25 25 mcg PO HS@2330 10/13/21 02/02/22 History Mcg = 1000 Iu)] Risankizumab-Rzaa [Skyrizi] 1 dose SQ DIRECTED 02/02/22 02/02/22 History Warfarin [Coumadin] 5 mg PO MOTHSA@2330 02/02/22 02/02/22 History Warfarin [Coumadin] 7.5 mg PO SUTUWEFR@2330 02/02/22 02/02/22 History Allergies Allergy/AdvReac Type Severity Reaction Status Date / Time cephalexin [From Keflex] Allergy Anaphylaxis Verified 02/02/22 10:15 tetracycline Allergy Anaphylaxis Verified 02/02/22 10:15 Physical Exam Vitals: Vital Signs Temp Pulse Resp BP Pulse Ox 02/02/22 12:54 106 H 12 111/91 100 02/02/22 11:04 102 H 12 101/68 98 02/02/22 10:00 142 H 18 107/85 100 02/02/22 09:54 136 H 18 91/60 98 02/02/22 09:17 97.8 F 80 18 165/92 100 Intake and Output 02/01/22 02/02/22 02/02/22 22:59 06:59 14:59 Other: Weight 104.326 kg PHYSICAL EXAMINATION: Patient is lying in the bed comfortably, no acute distress, awake alert and oriented.. HEENT: Normocephalic. Neck is supple. Pupils reactive. Nostrils clear. Oral cavity is moist. Neck reveals no JVD, carotid bruits, or thyromegaly. CHEST EXAMINATION: Trachea is central. Symmetrical expansion. Lung campos clear to auscultation and percussion. CARDIAC: Normal S1, S2 with no gallops. No murmurs , irregular rhythm ABDOMEN: Soft. Bowel sounds present. Nontender. No organomegaly. No abdominal bruits. Extremities: reveal no edema. No clubbing or cyanosis Neurologically awake, alert, oriented x3 with well-coordinated movements. No focal deficits noted Skin: No rash or skin lesions. Psychiatric: Coperative. Nonsuicidal, Musculoskeletal: No joint swelling or deformity. Normal range of motion. Results CBC & Chem 7: 02/03/22 08:09 02/03/22 08:09 Labs: Abnormal Lab Results - Last 24 Hours (Table) 02/02/22 02/02/22 Range/Units 09:54 09:54 PT 27.0 H (9.0-12.0) sec INR 2.7 H (<1.2) APTT 39.5 H (22.0-30.0) sec Chloride 108 H (98-107) mmol/L Glucose 107 H (74-99) mg/dL AST 37 H (14-36) U/L ALT 48 H (4-34) U/L Thrombosis Risk Factor Assmnt - DVT/VTE Prophylaxis DVT/VTE Prophylaxis: Pharmacologic Prophylaxis ordered Assessment and Plan Assessment: Atrial fibrillation with rapid ventricular rate. Palpitations and shortness of breath secondary to above Paroxysmal atrial fibrillation on anticoagulation with Coumadin. Suspected mediastinal lymphadenopathy on chest x-ray. Coumadin dosing oral dosing: Dosing Hyperlipidemia Osteoarthritis GERD History of psoriasis Morbid obesity Plan: Patient was started on Cardizem drip and continue with metoprolol. Coumadin dosing.Previous TSH level within normal limits. Continue with home medications and cardiology was consulted. Patient will need CT thorax for further evaluation of mediastinal lymphadenopathy. Follow-up closely. Time with Patient: Greater than 30
[2022-02-02] MEDS: CHOLECALCIFEROL 25 MCG (1000 IU) TABLET PO SCH (23:16)
[2022-02-02] MEDS: WARFARIN 7.5 MG TAB PO SCH (23:16)
[2022-02-02] MEDS ORDERED: METOPROLOL SUCCINATE (ER) 50 MG TAB.ER.24H PO SCH (23:30)
[2022-02-03 09:36] LABS: Basophils % (A) 0 %; Eosinophils # (A) 0.2 k/uL (0-0.7); Eosinophils % (A) 6 %; HCT 43.7 % (34.0-46.0); HGB 14.1 gm/dL (11.4-16.0); Lymphocytes # (A) 0.9 k/uL (1.0-4.8); Lymphocytes % (A) 21 %; MCH 29.9 pg (25.0-35.0); MCHC 32.2 g/dL (31.0-37.0); MCV 92.9 fL (80.0-100.0); Mean Platelet Volume 9.2; Monocytes # (A) 0.2 k/uL (0-1.0); Monocytes % (A) 5 %; Neutrophils # (A) 2.6 k/uL (1.3-7.7); Neutrophils % (A) 66 %; Platelet Count 231 k/uL (150-450); RBC 4.71 m/uL (3.80-5.40); RDW 14.1 % (11.5-15.5)
[2022-02-03 09:38] LABS: INR 2.5 (<1.2); Prothrombin Time 25.1 sec (9.0-12.0)
[2022-02-03 09:46] LABS: ALT 40 U/L (4-34); AST 27 U/L (14-36); African American GFR (CKD) >90 (>60 ml/min/1.73 sqM); Albumin 3.6 g/dL (3.5-5.0); Alkaline Phosphatase 100 U/L (38-126); Anion Gap 10 mmol/L; Blood Urea Nitrogen 11 mg/dL (7-17); Calcium 8.8 mg/dL (8.4-10.2); Carbon Dioxide 26 mmol/L (22-30); Chloride 105 mmol/L (98-107); Glucose 168 mg/dL (74-99); Non-African American GFR(CKD) 84 (>60 ml/min/1.73 sqM); Potassium 4.5 mmol/L (3.5-5.1); Sodium 141 mmol/L (137-145); Total Bilirubin 1.1 mg/dL (0.2-1.3); Total Protein 6.2 g/dL (6.3-8.2)
--- NOTE | 2022-02-03 12:35 | P.CRDCN ---
History of Present Illness History of present illness: This is Dr. Ballesteros dictating a consult on this patient The patient was interviewed and examined IMPRESSION / ASSESSMENT: Paroxysmal atrial fibrillation with RVR, symptomatic Patient presented with palpitations or shortness of breath and mild chest pressure Second episode of RVR this year, both episodes under 24 hours 1 episode in 2020 once again symptomatic Increased BMI Unknown sleep apnea status Denies alcohol use Recent echo showed preserved LV systolic function with left atrial enlargement Coronary angiography in July 2019 showed no significant coronary artery disease, very minor irregularities noted PLAN: TSH level Flecainide 50 g twice daily Reduce metoprolol succinate to 25 g by mouth daily Observe on telemetry for the next 24 hours as flecainide is being initiated Continue and granulation with Coumadin Outpatient sleep apnea assessment Gradual weight reduction Watch for hypertension/blood pressure HPI Patient presented with palpitations shortness of breath and a vague discomfort with chest She was found to be in A. fib with RVR She spontaneously converted to sinus rhythm in about 20 hours according to her She had an episode several months back but that lasted for about 12 hours or so. She had a prior episode last year which is also equally symptomatic Twelve-lead EKG confirms A. fib with RVR She has a history of psoriasis Increased BMI She does not know if she has sleep apnea or not. Denies alcohol use Is on Coumadin and her INR is therapeutic She takes Coumadin 7.5 mg alternating with 5 mg She is also on metoprolol succinate 50 mrem daily which was reduced on account of sinus bradycardia while in sinus rhythm ROS: No fever chills or rigors, no cough, phlegm or expectoration, no nausea, vomiting or diarrhea, no hematuria, dysuria, no musculoskeletal complaints, no strokes or seizures, no skin lesions. EXAMINATION: On examination rhythm is regular. Patient is back in sinus rhythm Blood pressure 150/70, 124/71 mmHg Telemetry shows sinus mechanism Normal heart sounds no murmurs no gallops Breath sounds are clear no rhonchi no crackles Extremities warm no edema No thyromegaly Skin lesions of psoriasis BMI 37 REVIEW OF LABS, ECG & MEDICAL DATA No evidence for focal airspace opacity pleural effusion or pneumothorax Twelve-lead EKG shows atrial fibrillation with RVR, heart rate 140 beats a minute Hemoglobin 14.1, INR 2.7 and 2.5 on warfarin Sodium 141, potassium 4.5 BUN 11 and creatinine 0.8 Normal troponin BNP 537 Past Medical History Past Medical History: Atrial Fibrillation, GERD/Reflux, Hyperlipidemia, Osteoarthritis (OA), Skin Disorder Additional Past Medical History / Comment(s): PSORIASIS, abnormal stress test, hernia in "abdomen", constipation, History of Any Multi-Drug Resistant Organisms: None Reported Past Surgical History: Orthopedic Surgery Additional Past Surgical History / Comment(s): ganglion CYST REMOVED rt hand, TRIGGER THUMB rt hand Past Anesthesia/Blood Transfusion Reactions: Motion Sickness Past Psychological History: No Psychological Hx Reported Smoking Status: Never smoker Past Alcohol Use History: None Reported Past Drug Use History: None Reported - Past Family History Mother Family Medical History: Cancer Additional Family Medical History / Comment(s): SKIN CA Father Family Medical History: Coronary Artery Disease (CAD), Diabetes Mellitus Medications and Allergies Home Medications Medication Instructions Recorded Confirmed Type Metoprolol Succinate [Toprol XL] 50 mg PO HS@2330 06/18/19 02/02/22 History Cholecalciferol [Vitamin D3 (25 25 mcg PO HS@2330 10/13/21 02/02/22 History Mcg = 1000 Iu)] Risankizumab-Rzaa [Skyrizi] 1 dose SQ DIRECTED 02/02/22 02/02/22 History Warfarin [Coumadin] 5 mg PO MOTHSA@2330 02/02/22 02/02/22 History Warfarin [Coumadin] 7.5 mg PO SUTUWEFR@2330 02/02/22 02/02/22 History Allergies Allergy/AdvReac Type Severity Reaction Status Date / Time cephalexin [From Keflex] Allergy Anaphylaxis Verified 02/02/22 10:15 tetracycline Allergy Anaphylaxis Verified 02/02/22 10:15 Physical Exam Vitals: Vital Signs Temp Pulse Pulse Resp BP BP Pulse Ox 02/03/22 12:00 98.1 F 61 19 124/71 100 02/03/22 08:00 97.6 F 98 19 116/72 98 02/03/22 04:00 60 19 115/70 99 02/02/22 23:18 66 19 110/56 98 02/02/22 19:07 97.7 F 98 17 112/67 98 02/02/22 18:30 106 H 23 120/86 97 02/02/22 16:07 122 H 16 114/71 98 02/02/22 12:54 106 H 12 111/91 100 Intake and Output 02/02/22 02/03/22 02/03/22 22:59 06:59 14:59 Intake Total 118 Balance 118 Intake: Oral 118 Other: # Voids 0 1 Weight 104.326 kg Results 02/03/22 08:09 02/03/22 08:09 Cardiac Enzymes 02/03/22 Range/Units 08:09 AST 27 (14-36) U/L Coagulation 02/03/22 Range/Units 08:09 PT 25.1 H (9.0-12.0) sec CBC 02/03/22 Range/Units 08:09 WBC 4.0 (3.8-10.6) k/uL RBC 4.71 (3.80-5.40) m/uL Hgb 14.1 (11.4-16.0) gm/dL Hct 43.7 (34.0-46.0) % Plt Count 231 (150-450) k/uL Comprehensive Metabolic Panel 02/03/22 Range/Units 08:09 Sodium 141 (137-145) mmol/L Potassium 4.5 (3.5-5.1) mmol/L Chloride 105 (98-107) mmol/L Carbon Dioxide 26 (22-30) mmol/L BUN 11 (7-17) mg/dL Creatinine 0.79 (0.52-1.04) mg/dL Glucose 168 H (74-99) mg/dL Calcium 8.8 (8.4-10.2) mg/dL AST 27 (14-36) U/L ALT 40 H (4-34) U/L Alkaline Phosphatase 100 (38-126) U/L Total Protein 6.2 L (6.3-8.2) g/dL Albumin 3.6 (3.5-5.0) g/dL Current Medications Generic Name Dose Route Start Last Admin Trade Name Freq PRN Reason Stop Dose Admin Acetaminophen 650 mg 02/02/22 11:15 02/02/22 19:28 Acetaminophen Tab 325 Mg Tab PO 650 mg Q6HR PRN Administration Mild Pain or Fever > 100.5 Cholecalciferol 25 mcg 02/02/22 23:30 02/02/22 23:16 Cholecalciferol 25 Mcg (1000 Iu) Tablet PO 25 mcg HS@2330 CHUCKY Administration Flecainide Acetate 50 mg 02/03/22 21:00 Flecainide 50 Mg Tab PO Q12HR PENDING SALE TO [facility] Metoprolol Succinate 25 mg 02/03/22 23:30 Metoprolol Succinate (Er) 25 Mg Tab.Er.24h PO HS@2330 PENDING SALE TO [facility] Miscellaneous Information 0 each 02/02/22 11:23 Warfarin Per Pharmacy MISCELLANE DIRECTED PRN PER PROTOCOL Naloxone HCl 0.2 mg 02/02/22 11:15 Naloxone 0.4 Mg/Ml 1 Ml Vial IV Q2M PRN Opioid Reversal Warfarin Sodium 5 mg 02/04/22 23:30 Warfarin 5 Mg Tab PO MOTHSA@2330 PENDING SALE TO [facility] Protocol Warfarin Sodium 7.5 mg 02/02/22 23:30 02/02/22 23:16 Warfarin 7.5 Mg Tab PO 7.5 mg SUTUWEFR@2330 PENDING SALE TO [facility] Administration Protocol Intake and Output 02/02/22 02/03/22 02/03/22 22:59 06:59 14:59 Intake Total 118 Balance 118 Intake: Oral 118 Other: # Voids 0 1 Weight 104.326 kg 02/03/22 08:09 02/03/22 08:09
[2022-02-03] MEDS: DILTIAZEM 125 MG in SODIUM CHLORIDE 0.9% 100 ML IV SCH (12:37)
[2022-02-03] MEDS: FLECAINIDE 50 MG TAB PO SCH ×2 (14:19→20:41)
[2022-02-03] MEDS ORDERED: FLECAINIDE 50 MG TAB PO SCH (21:00)
[2022-02-03] MEDS: CHOLECALCIFEROL 25 MCG (1000 IU) TABLET PO SCH (22:59)
[2022-02-03] MEDS: WARFARIN 7.5 MG TAB PO SCH (22:59)
[2022-02-03] MEDS ORDERED: METOPROLOL SUCCINATE (ER) 25 MG TAB.ER.24H PO SCH (23:30)
[2022-02-04] MEDS: ACETAMINOPHEN TAB 325 MG TAB PO PRN (06:19)
[2022-02-04] MEDS: FLECAINIDE 50 MG TAB PO SCH (08:40)
[2022-02-04 09:04] LABS: INR 2.9 (<1.2); Prothrombin Time 29.1 sec (9.0-12.0)
--- NOTE | 2022-02-04 11:53 | P.PN ---
Progress Note - Text Patient is doing well. Heart rate in the 50s To further episodes of atrial fibrillation No breathing trouble No chest discomfort or dizziness or lightheadedness device she is resting comfortably in bed She was started on flecainide 50 g twice daily along with reduction in the dose of Toprol XL to 25 mg by mouth daily She seems to have tolerated this well overnight On examination blood pressure 180 no 73 mmHg, pulse rate in the 60s, afebrile Breath sounds are clear no rhonchi no crackles Heart sounds are normal normal S1 normal S2 no murmurs Impression Severity symptomatic paroxysmal atrial fibrillation Normal thyroid function Awaiting sleep apnea assessment, referred for sleep apnea assessment Obesity, BMI 37 Mild Sick Sinus Syndrome Left atrial enlargement Plan Continue flecainide 50 mg twice daily Reduce dose of metoprolol succinate to 25 mg by mouth daily Follow-up with Dr. Marroquin in a week or 2 Proceed with pulmonary vein isolation electively Continue Coumadin Keep INR is between 2.5-3.0 loren-procedure Continue metoprolol on the day of the surgery but hold flecainide for 2 days prior to the surgery Patient instructed not to hold Coumadin prior to the procedure Add a detailed discussion with her regarding management of atrial fibrillation and A. fib ablation Success rates risks benefits and complications discussed in detail The procedure was discussed in detail She is agreeable with the plan
[2022-02-04 13:32] VITALS: BP 128/75; PULSE 64; RESP 16; TEMP 98.1
[2022-02-04] MEDS ORDERED: WARFARIN 5 MG TAB PO SCH (23:30)
== END 2022-02-04 14:10 | disposition home or self-care (01) | DRG 310 ==
LOC: EC 09:14 → 3SCARD 11:35
PROVIDERS: ADMIT Internal Medicine; ATTEND Internal Medicine
DX: I48.19 Other persistent atrial fibrillation (principal); I11.9 Hypertensive heart disease without heart failure; Z68.37 Body mass index [BMI] 37.0-37.9, adult; E66.01 Morbid (severe) obesity due to excess calories; I49.5 Sick sinus syndrome; G47.30 Sleep apnea, unspecified; E78.5 Hyperlipidemia, unspecified; M79.89 Other specified soft tissue disorders; L40.9 Psoriasis, unspecified; M19.90 Unspecified osteoarthritis, unspecified site; K21.9 Gastro-esophageal reflux disease without esophagitis; Z28.310 Unvaccinated for COVID-19; Z79.01 Long term (current) use of anticoagulants; Z79.899 Other long term (current) drug therapy; Z88.1 Allergy status to other antibiotic agents
CPT/HCPCS: 36415; 71046; 80053; 83036; 83735; 83880; 84443; 84484; 85025; 85610; 85730; 93005; 99291

== ENCOUNTER → 2022-02-12 | Outpatient (CLI) | payer OTHER ==
--- NOTE | 2022-02-14 08:02 | BD ---
EXAMINATION TYPE: Axial Bone Density DATE OF EXAM: 02/12/2022 COMPARISON: NONE CLINICAL HISTORY: 56 years year old Female. ICD-10 CODE: Z78.0 Asymptomatic menopausal state Height: 63.25 Weight: 230.4 FRAX RISK QUESTIONS: Alcohol (3 or more units per day): NO Family History (Parent hip fracture): YES, MOTHER Glucocorticoids (More than 3mos): NO History of Fracture in Adulthood: NO Secondary Osteoporosis: 1. Type 1 Diabetes: NO 2. Hyperthyroidism: NO 3. Menopause before 45: NO 4. Malnutrition: NO 5. Chronic liver disease: NO Rheumatoid Arthritis: NO Current Tobacco Use: NO RISK FACTORS HISTORY OF: Hip Fracture (Right/Left): NO Spine Fracture: NO History of Wrist Fracture: NO Surgery to Spine/Hip(right/left)/Wrist (right/left): NO Family History of Osteoporosis: MOTHER Active: NO Diet low in dairy products/other sources of calcium: NO Postmenopausal woman: YES Take estrogen and/or progesterone medications: NO Lost more than 2 inches in height since high school: YES Frequent falls: YES Poor Health: YES Hyperparathyroidism: NO Adrenal Insufficiency: NO MEDICATIONS: Prednisone or other steroids: NO Thyroid Medications: NO Osteoporosis Medications: NO Additional Medications: METOPROLOL, FLECAINIDE, VIT D, EXAM MEASUREMENTS: Bone mineral densitometry was performed using the [employer] System. Bone mineral density as measured about the Lumbar spine is: ----- L1-L4(G/cm2): 1.088 T Score Values are as follows: ----- L1: -0.4 ----- L2: -1.7 ----- L3: 0.0 ----- L4: -1.0 ----- L1-L4: -0.8 BASELINE STUDY Bone mineral density about the R hip (g/cm2): 0.794 Bone mineral density about the L hip (g/cm2): 0.829 T Score values are as follows: -----R Neck: -1.8 -----L Neck: -1.5 -----R Total: -1.2 -----L Total: -1.0 BASELINE STUDY FRAX%s: The graph provided illustrates a 13.9% chance for a major osteoporotic fx and a 0.7% chance f or the hips probability for fx in 10 years time. IMPRESSION: Osteopenia (T Score between -2.5 and -1). There is slightly increased risk of fracture and the patient may be considered for treatment. Re-Screen 2-5 years. NOTE: T-SCORE=SD OF THE YOUNG ADULT MEAN.
== END | disposition home or self-care (01) ==
LOC: RADBDWWP 15:20
PROVIDERS: ATTEND Family Medicine
DX: M85.89 Other specified disorders of bone density and structure, multiple sites (principal); Z78.0 Asymptomatic menopausal state
CPT/HCPCS: 77080

== ENCOUNTER → 2022-03-11 | Outpatient (CLI) | payer OTHER ==
--- NOTE | 2022-03-11 14:33 | P.SLEEP ---
History of Present Illness DATE: 03/11/2022 CONSULTATION/NEW PATIENT EVALUATION HISTORY OF PRESENT ILLNESS/SLEEP-WAKE EVALUATION: 56-year-old lady had been evaluated in the sleep center for possible obstructive sleep apnea hypopnea syndrome. 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 FALLING ASLEEP: No problems with falling asleep, no TV in bedroom. DURING SLEEP: Patient sleeps by herself. No information about snoring. Patient wakes up from sleep multiple times. Usually no episodes of nocturia No history of hypnogogical hallucinations, or cataplexy. Positive history of possible sleep paralysis. DURING THE DAY/WAKE STATE: During the day patient has difficulties to pay attention, falling asleep during the day, has problems with memory, concentration, irritability, depression. Hartley sleepiness scale is increased to 10. Patient takes naps 2 times during the day. PAST MEDICAL HISTORY: Recent arterial fibrillation, back problems, psoriasis, psoriatic arthritis. PAST SURGICAL HISTORY: Cyst removed from right hand, surgery for trigger thumb on the right side. MEDICATIONS: Toprol, warfarin, flecainide. SOCIAL HISTORY: Negative for smoking, alcohol consumption extremely rarely. FAMILY HISTORY: Hypertension, heart problems, snoring, cancer, diabetes, thyroid problems. REVIEW OF SYSTEMS: Multiple awakenings from sleep, history of sleep paralysis, back pain. No fevers. No double vision. No recent chest pain. No shortness of breath. No abdominal pain. No bleeding episodes. No blood in urine. No seizure episodes. PHYSICAL EXAMINATION: GENERAL: A pleasant patient without any distress. VITAL SIGNS: BP 125/81 , HR 57 , RR 18 , weight 239.2 pounds, height 5 foot 3-3/4 inches, body mass index 41.4 . HEENT: PERRLA, EOMI. Evaluation of oropharynx showed tongue protrudes midline, low position of soft palate Mallampati 3. Psoriatic plaques on the skin. NECK: Supple. No JVD. Thyroid is not palpable. 16-1/4 inches in circumference. LUNGS: Clear to percussion and to auscultation. Good air exchange. No wheezing or rhonchi. HEART: S1, S2 regular. No murmurs, gallops or rubs. ABDOMEN: Soft and nontender. Bowel sounds are present. No organomegaly appreciated. Obese EXTREMITIES: No clubbing or cyanosis. 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 Cranial nerves 2 to 7 intact. There is no fasciculation or atrophy noted. No focal deficits observed. ASSESSMENT: 1. Multiple awakenings from sleep, small oropharyngeal air space, wide neck, sleepiness Hartley Sleepiness Scale is 10 patient takes 2 naps during the day. Obstructive sleep apnea-hypopnea syndrome. 2. Obesity body mass index 41.4. 3. Positive history of sleep paralysis. 4. History of atrial fibrillation. 5 psoriasis, including psoriatic arthritis. 6 . Back problems. 7. Status post surgery on the right hand for cyst. PLAN: 1. Polysomnography for evaluation of patient's breathing during sleep. 2. CPAP/BiPAP titration if sleep study confirms obstructive sleep apnea-hyp opnea syndrome. 3. Preferable position during sleep on the side. 4. No driving if patient feels any sleepiness. Patient is aware of civil and criminal liability for unsafe driving. 5. Sleep hygiene with regular sleep time for at least 7.5-8 hours. 6. Watching and losing weight. Thank you very much for referring this patient for consultation. Sincerely, Zeke Ritter MD, PhD, FAASM. Diplomat of [place] [employer], Sleep Medicine Board by [place] [employer] [place] [employer] [facility] [place] Past Medical History Past Medical History: Atrial Fibrillation, GERD/Reflux, Hyperlipidemia, Osteoarthritis (OA), Skin Disorder Additional Past Medical History / Comment(s): PSORIASIS, abnormal stress test, hernia in "abdomen", constipation, History of Any Multi-Drug Resistant Organisms: None Reported Past Surgical History: Orthopedic Surgery Additional Past Surgical History / Comment(s): ganglion CYST REMOVED rt hand, TRIGGER THUMB rt hand Past Anesthesia/Blood Transfusion Reactions: Motion Sickness Past Psychological History: No Psychological Hx Reported Smoking Status: Never smoker Past Alcohol Use History: None Reported Past Drug Use History: None Reported - Past Family History Mother Family Medical History: Cancer Additional Family Medical History / Comment(s): SKIN CA Father Family Medical History: Coronary Artery Disease (CAD), Diabetes Mellitus Medications and Allergies Home Medications Medication Instructions Recorded Confirmed Type Cholecalciferol [Vitamin D3 (25 25 mcg PO HS@2330 10/13/21 02/02/22 History Mcg = 1000 Iu)] Risankizumab-Rzaa [Skyrizi] 1 dose SQ DIRECTED 02/02/22 02/02/22 History Warfarin [Coumadin] 5 mg PO MOTHSA@2330 02/02/22 02/02/22 History Warfarin [Coumadin] 7.5 mg PO SUTUWEFR@2330 02/02/22 02/02/22 History Flecainide [Tambocor] 50 mg PO Q12HR #180 tablet 02/04/22 Rx Metoprolol Succinate [Metoprolol 25 mg PO DAILY #90 tab 02/04/22 Rx Succinate ER] Allergies Allergy/AdvReac Type Severity Reaction Status Date / Time cephalexin [From Keflex] Allergy Anaphylaxis Verified 02/02/22 10:15 tetracycline Allergy Anaphylaxis Verified 02/02/22 10:15 Sleep Note - Sleep Note Sleep Note: Temperature: Pulse Rate: Respiratory Rate: Blood Pressure: SpO2: Height: Weight: BMI: Neck Circumference:
== END ==
LOC: SLEEP 13:37
PROVIDERS: ATTEND Internal Medicine
DX: G47.33 Obstructive sleep apnea (adult) (pediatric) (principal); E66.9 Obesity, unspecified; Z68.41 Body mass index [BMI] 40.0-44.9, adult; L40.59 Other psoriatic arthropathy; I48.91 Unspecified atrial fibrillation; Z98.890 Other specified postprocedural states; M54.50 Low back pain, unspecified; G47.53 Recurrent isolated sleep paralysis; Z88.1 Allergy status to other antibiotic agents
CPT/HCPCS: 99211

== ENCOUNTER 2022-03-15 17:50 | Emergency (ER) | payer OTHER ==
[2022-03-15 18:14] VITALS: TEMP 98.3
[2022-03-15] MEDS ORDERED: SODIUM CHLORIDE 0.9% 1,000 ML IV STA (20:15)
--- NOTE | 2022-03-15 20:23 | ED ---
General Adult HPI - General Chief complaint: Dizziness Stated complaint: Blood pressure issues Time Seen by Provider: 03/15/22 20:06 Source: patient Mode of arrival: ambulatory Limitations: no limitations - History of Present Illness Initial comments: This is a pleasant 56-year-old female who was going into work at about 3 PM when she felt generally weak after walking quite some ways. Patient states she felt tingling in both arms felt lightheaded and had to sit down. Patient then became nauseated. Patient states this happened a few weeks ago as well. Patient states this time it seemed to live longer. Patient went to urgent care and was found be hypertensive with a systolic blood pressure of about 190. Diastolic was about 100. Patient is not describing any vertiginous symptoms. Patient states that after walking she felt tingling in both arms, only in The arms. Again, she did not ascertain any chest pain. Possibly mild shortness of breath. Patient does take warfarin chronically. Patient states she had a sleep apnea test last night he did not sleep well. Patient states she went home, ate breakfast, then got up to go to work as usual. Patient is complaining of a throbbing headache which actually started in our waiting room at about 7:15 PM. This sounds to came on rather insidiously. Patient also stated that she had a bit of a dry mouth during this event and my bit shaky patient is on warfarin but denies any hematochezia or melena. , no fever or chills, no changes in vision or hearing, no sore throat or difficulty with speech, no neck pain, no chest pain or shortness of breath, no abdominal pain, no nausea or vomiting, no changes in urination or bowel movements, no numbness or tingling, no extremity pain, no skin rashes or lesions. Past medical, surgical, social, and family history reviewed. - Related Data Home Medications Medication Instructions Recorded Confirmed Cholecalciferol [Vitamin D3 (25 25 mcg PO HS@2330 10/13/21 02/02/22 Mcg = 1000 Iu)] Risankizumab-Rzaa [Skyrizi] 1 dose SQ DIRECTED 02/02/22 02/02/22 Warfarin [Coumadin] 5 mg PO MOTHSA@2330 02/02/22 02/02/22 Warfarin [Coumadin] 7.5 mg PO SUTUWEFR@2330 02/02/22 02/02/22 Previous Rx's Medication Instructions Recorded Flecainide [Tambocor] 50 mg PO Q12HR #180 tablet 02/04/22 Metoprolol Succinate [Metoprolol 25 mg PO DAILY #90 tab 02/04/22 Succinate ER] Allergies Allergy/AdvReac Type Severity Reaction Status Date / Time cephalexin [From Keflex] Allergy Anaphylaxis Verified 03/15/22 18:14 tetracycline Allergy Anaphylaxis Verified 03/15/22 18:14 Review of Systems ROS Statement: Those systems with pertinent positive or pertinent negative responses have been documented in the HPI. ROS Other: All systems not noted in ROS Statement are negative. Past Medical History Past Medical History: Atrial Fibrillation, GERD/Reflux, Hyperlipidemia, Osteoarthritis (OA), Skin Disorder Additional Past Medical History / Comment(s): PSORIASIS, abnormal stress test, hernia in "abdomen", constipation, History of Any Multi-Drug Resistant Organisms: None Reported Past Surgical History: Orthopedic Surgery Additional Past Surgical History / Comment(s): ganglion CYST REMOVED rt hand, TRIGGER THUMB rt hand Past Anesthesia/Blood Transfusion Reactions: Motion Sickness Past Psychological History: No Psychological Hx Reported Smoking Status: Never smoker Past Alcohol Use History: None Reported Past Drug Use History: None Reported - Past Family History Mother Family Medical History: Cancer Additional Family Medical History / Comment(s): SKIN CA Father Family Medical History: Coronary Artery Disease (CAD), Diabetes Mellitus General Exam - General Exam Comments Initial Comments: Patient does not appear to be ill or toxic, no acute distress. Mildly elevated blood pressure. Cranial nerves II through XII intact. Limitations: no limitations General appearance: alert, in no apparent distress Head exam: Present: atraumatic, normocephalic, normal inspection Eye exam: Present: normal appearance, PERRL, EOMI. Absent: scleral icterus, conjunctival injection, periorbital swelling ENT exam: Present: normal exam, normal oropharynx, mucous membranes moist, normal external ear exam. Absent: mucous membranes dry Neck exam: Present: normal inspection, full ROM. Absent: tenderness, meningismus, lymphadenopathy Respiratory exam: Present: normal lung sounds bilaterally. Absent: respiratory distress, wheezes, rales, rhonchi, stridor, chest wall tenderness, accessory muscle use, decreased breath sounds, prolonged expiratory Cardiovascular Exam: Present: regular rate, normal rhythm, normal heart sounds. Absent: systolic murmur, diastolic murmur, rubs, gallop, clicks GI/Abdominal exam: Present: soft, normal bowel sounds. Absent: distended, tenderness, guarding, rebound, rigid Extremities exam: Present: normal inspection, full ROM, normal capillary refill. Absent: tenderness, pedal edema, joint swelling, calf tenderness Back exam: Present: normal inspection Neurological exam: Present: alert, oriented X3, CN II-XII intact, normal gait, reflexes normal. Absent: abnormal gait, motor sensory deficit Psychiatric exam: Present: normal affect, normal mood. Absent: anxious, flat a ffect, manic Skin exam: Present: warm, dry, intact, normal color. Absent: rash, cyanosis, diaphoretic, erythema, urticaria, vesicles, petechiae, pallor, mottled, abrasion Course Vital Signs 03/15/22 03/15/22 18:11 21:36 Temperature 98.3 F Pulse Rate 64 56 L Respiratory 20 16 Rate Blood Pressure 151/79 142/82 O2 Sat by Pulse 100 100 Oximetry - Reevaluation(s) Reevaluation #1: 03/15/22 21:37 Medical record is reviewed Symptoms are improved here in the emergency department--alert and oriented 4, cranial nerves II through XII intact Patient is informed of results and questions answered Patient in no distress Medical Decision Making - Medical Decision Making Patient presents with nonspecific symptomology. Certainly with the nausea and lightheadedness after exertion this could be cardiac related. So could be related fact the patient did not sleep well the previous night. Some of the patient's symptomatology brings hypoglycemia into the realm of possibility. Electrolyte disturbance other possibility. We will obtain a CT of the head although this does not appear to be consistent with a thunderclap headache. Patient merely could be dehydrated. We'll hydrate the patient is well. We'll assess for electrolyte disturbance. Patient was noted to have a subtherapeutic INR 1.7. I'm going to have the patient take one extra dose of her warfarin. Patient was not in atrial fibrillation here in the ER. However given the patient's symptomology, a short run of paroxysmal atrial fibrillation was possible. We did discuss this. Patient's troponin was negative. EKG was es sentially unremarkable. Other laboratory investigations unremarkable. Patient states she actually has an appointment next week for a cardiac ablation with Dr. Ballesteros. We'll have the patient follow-up with both her primary care physician and the qi specialist. Patient was told to return to the ER for any signs or symptoms worsen. Told to return immediately if any other problems arise. All questions answered. Treatment plan discussed. Patient in agreement Every effort has been made to ensure accuracy of this dictation. However, due to the limitations of electronic medical records and dictation devices, errors in charting still occur. The case was discussed in detail with ED attending physician. Presentation, findings, treatment plan discussed in detail. [employer] Appeals Reviewer Dr. Garcia - Lab Data Result diagrams: 03/15/22 20:49 03/15/22 20:49 Lab Results 03/15/22 03/15/22 03/15/22 Range/Units 20:38 20:38 20:49 WBC 6.1 (3.8-10.6) k/uL RBC 5.04 (3.80-5.40) m/uL Hgb 15.5 (11.4-16.0) gm/dL Hct 45.7 (34.0-46.0) % MCV 90.6 (80.0-100.0) fL MCH 30.8 (25.0-35.0) pg MCHC 34.0 (31.0-37.0) g/dL RDW 13.3 (11.5-15.5) % Plt Count 273 (150-450) k/uL MPV 8.8 Neutrophils % 64 % Lymphocytes % 24 % Monocytes % 5 % Eosinophils % 4 % Basophils % 0 % Neutrophils # 3.9 (1.3-7.7) k/uL Lymphocytes # 1.5 (1.0-4.8) k/uL Monocytes # 0.3 (0-1.0) k/uL Eosinophils # 0.2 (0-0.7) k/uL Basophils # 0.0 (0-0.2) k/uL PT (9.0-12.0) sec INR (<1.2) Sodium (137-145) mmol/L Potassium (3.5-5.1) mmol/L Chloride (98-107) mmol/L Carbon Dioxide (22-30) mmol/L Anion Gap mmol/L BUN (7-17) mg/dL Creatinine (0.52-1.04) mg/dL Est GFR (CKD-EPI)AfAm (>60 ml/min/1.73 sqM) Est GFR (CKD-EPI)NonAf (>60 ml/min/1.73 sqM) Glucose (74-99) mg/dL Calcium (8.4-10.2) mg/dL Phosphorus (2.5-4.5) mg/dL Magnesium (1.6-2.3) mg/dL Total Bilirubin (0.2-1.3) mg/dL AST (14-36) U/L ALT (4-34) U/L Alkaline Phosphatase (38-126) U/L Troponin I (0.000-0.034) ng/mL Total Protein (6.3-8.2) g/dL Albumin (3.5-5.0) g/dL Urine Color Urine Appearance (Clear) Urine pH (5.0-8.0) Ur Specific Carlton (1.001-1.035) Urine Protein (Negative) Urine Glucose (UA) (Negative) Urine Ketones (Negative) Urine Blood (Negative) Urine Nitrite (Negative) Urine Bilirubin (Negative) Urine Urobilinogen (<2.0) mg/dL Ur Leukocyte Esterase (Negative) Coronavirus (PCR) Not Detected (Not Detectd) Influenza Type A RNA Not Detected (Not Detectd) Influenza Type B (PCR) Not Detected (Not Detectd) 03/15/22 03/15/22 03/15/22 Range/Units 20:49 20:49 22:07 WBC (3.8-10.6) k/uL RBC (3.80-5.40) m/uL Hgb (11.4-16.0) gm/dL Hct (34.0-46.0) % MCV (80.0-100.0) fL MCH (25.0-35.0) pg MCHC (31.0-37.0) g/dL RDW (11.5-15.5) % Plt Count (150-450) k/uL MPV Neutrophils % % Lymphocytes % % Monocytes % % Eosinophils % % Basophils % % Neutrophils # (1.3-7.7) k/uL Lymphocytes # (1.0-4.8) k/uL Monocytes # (0-1.0) k/uL Eosinophils # (0-0.7) k/uL Basophils # (0-0.2) k/uL PT 17.8 H (9.0-12.0) sec INR 1.7 H (<1.2) Sodium 141 (137-145) mmol/L Potassium 4.6 (3.5-5.1) mmol/L Chloride 104 (98-107) mmol/L Carbon Dioxide 28 (22-30) mmol/L Anion Gap 9 mmol/L BUN 11 (7-17) mg/dL Creatinine 0.62 (0.52-1.04) mg/dL Est GFR (CKD-EPI)AfAm >90 (>60 ml/min/1.73 sqM) Est GFR (CKD-EPI)NonAf >90 (>60 ml/min/1.73 sqM) Glucose 90 (74-99) mg/dL Calcium 9.8 (8.4-10.2) mg/dL Phosphorus 4.5 (2.5-4.5) mg/dL Magnesium 2.3 (1.6-2.3) mg/dL Total Bilirubin 1.1 (0.2-1.3) mg/dL AST 27 (14-36) U/L ALT 28 (4-34) U/L Alkaline Phosphatase 124 (38-126) U/L Troponin I <0.012 (0.000-0.034) ng/mL Total Protein 7.9 (6.3-8.2) g/dL Albumin 4.7 (3.5-5.0) g/dL Urine Color Urine Appearance (Clear) Urine pH (5.0-8.0) Ur Specific Carlton (1.001-1.035) Urine Protein (Negative) Urine Glucose (UA) (Negative) Urine Ketones (Negative) Urine Blood (Negative) Urine Nitrite (Negative) Urine Bilirubin (Negative) Urine Urobilinogen (<2.0) mg/dL Ur Leukocyte Esterase (Negative) Coronavirus (PCR) (Not Detectd) Influenza Type A RNA (Not Detectd) Influenza Type B (PCR) (Not Detectd) 03/15/22 Range/Units 22:41 WBC (3.8-10.6) k/uL RBC (3.80-5.40) m/uL Hgb (11.4-16.0) gm/dL Hct (34.0-46.0) % MCV (80.0-100.0) fL MCH (25.0-35.0) pg MCHC (31.0-37.0) g/dL RDW (11.5-15.5) % Plt Count (150-450) k/uL MPV Neutrophils % % Lymphocytes % % Monocytes % % Eosinophils % % Basophils % % Neutrophils # (1.3-7.7) k/uL Lymphocytes # (1.0-4.8) k/uL Monocytes # (0-1.0) k/uL Eosinophils # (0-0.7) k/uL Basophils # (0-0.2) k/uL PT (9.0-12.0) sec INR (<1.2) Sodium (137-145) mmol/L Potassium (3.5-5.1) mmol/L Chloride (98-107) mmol/L Carbon Dioxide (22-30) mmol/L Anion Gap mmol/L BUN (7-17) mg/dL Creatinine (0.52-1.04) mg/dL Est GFR (CKD-EPI)AfAm (>60 ml/min/1.73 sqM) Est GFR (CKD-EPI)NonAf (>60 ml/min/1.73 sqM) Glucose (74-99) mg/dL Calcium (8.4-10.2) mg/dL Phosphorus (2.5-4.5) mg/dL Magnesium (1.6-2.3) mg/dL Total Bilirubin (0.2-1.3) mg/dL AST (14-36) U/L ALT (4-34) U/L Alkaline Phosphatase (38-126) U/L Troponin I (0.000-0.034) ng/mL Total Protein (6.3-8.2) g/dL Albumin (3.5-5.0) g/dL Urine Color Colorless Urine Appearance Clear (Clear) Urine pH 6.5 (5.0-8.0) Ur Specific Carlton 1.007 (1.001-1.035) Urine Protein Negative (Negative) Urine Glucose (UA) Negative (Negative) Urine Ketones Negative (Negative) Urine Blood Negative (Negative) Urine Nitrite Negative (Negative) Urine Bilirubin Negative (Negative) Urine Urobilinogen <2.0 (<2.0) mg/dL Ur Leukocyte Esterase Negative (Negative) Coronavirus (PCR) (Not Detectd) Influenza Type A RNA (Not Detectd) Influenza Type B (PCR) (Not Detectd) - Radiology Data Radiology results: report reviewed, image reviewed I did interpret the chest x-ray and the brain CT myself. No evidence of acute pathology. Concur with the radiology interpretation. Disposition Clinical Impression: Lightheadedness, Paresthesia, Headache, Uncontrolled hypertension, Subtherapeutic international normalized ratio (INR) Disposition: HOME SELF-CARE Condition: Good Instructions (If sedation given, give patient instructions): A-fib (Atrial Fibr illation) (ED), Chronic Hypertension (ED), Dizziness (ED) Additional Instructions: Take 1 extra dose of your warfarin. Then follow-up with your primary care physician and your qi specialist. Follow-up with your regular physician as directed. Return to the ER immediately if any symptoms worsen, new symptoms arise, or any other problems develop. Is patient prescribed a controlled substance at d/c from ED?: No Referrals: Nusrat Conway DO [Primary Care Provider] - 1-2 days Rudy Ballesteros MD [STAFF PHYSICIAN] - As Soon As Possible Time of Disposition: 23:11
[2022-03-15 20:58] LABS: Basophils % (A) 0 %; Eosinophils # (A) 0.2 k/uL (0-0.7); Eosinophils % (A) 4 %; HCT 45.7 % (34.0-46.0); HGB 15.5 gm/dL (11.4-16.0); Lymphocytes # (A) 1.5 k/uL (1.0-4.8); Lymphocytes % (A) 24 %; MCH 30.8 pg (25.0-35.0); MCV 90.6 fL (80.0-100.0); Mean Platelet Volume 8.8; Monocytes # (A) 0.3 k/uL (0-1.0); Monocytes % (A) 5 %; Neutrophils # (A) 3.9 k/uL (1.3-7.7); Neutrophils % (A) 64 %; Platelet Count 273 k/uL (150-450); RBC 5.04 m/uL (3.80-5.40); RDW 13.3 % (11.5-15.5); WBC 6.1 k/uL (3.8-10.6)
[2022-03-15 21:03] LABS: INR 1.7 (<1.2); Prothrombin Time 17.8 sec (9.0-12.0)
[2022-03-15 21:05] LABS: ALT 28 U/L (4-34); AST 27 U/L (14-36); African American GFR (CKD) >90 (>60 ml/min/1.73 sqM); Albumin 4.7 g/dL (3.5-5.0); Alkaline Phosphatase 124 U/L (38-126); Anion Gap 9 mmol/L; Blood Urea Nitrogen 11 mg/dL (7-17); Calcium 9.8 mg/dL (8.4-10.2); Carbon Dioxide 28 mmol/L (22-30); Chloride 104 mmol/L (98-107); Glucose 90 mg/dL (74-99); Magnesium 2.3 mg/dL (1.6-2.3); Non-African American GFR(CKD) >90 (>60 ml/min/1.73 sqM); Phosphorus 4.5 mg/dL (2.5-4.5); Potassium 4.6 mmol/L (3.5-5.1); Sodium 141 mmol/L (137-145); Total Bilirubin 1.1 mg/dL (0.2-1.3); Total Protein 7.9 g/dL (6.3-8.2)
--- NOTE | 2022-03-15 21:23 | CT ---
EXAMINATION TYPE: CT brain wo con DATE OF EXAM: 03/15/2022 COMPARISON: None HISTORY: HEADACHE AND DIZZINESS CT DLP: 1223.4 mGycm Automated exposure control for dose reduction was used. Images of the brain obtained with no contrast. Ventricles of normal size. There is no mass effect or midline shift. No sign of intracranial hemorrha ge. The calvarium is intact. Skull base is intact. There is normal aeration of the mastoid sinuses. IMPRESSION: Negative unenhanced head CT scan.
--- NOTE | 2022-03-15 21:26 | XR ---
EXAMINATION TYPE: XR chest 1V DATE OF EXAM: 03/15/2022 COMPARISON: 02/02/2022 HISTORY: Fatigue TECHNIQUE: FINDINGS: There is no heart failure nor confluent pneumonic infiltrate. Costophrenic angles are clear . Bony thorax is intact. IMPRESSION: No cardiopulmonary disease. No change.
[2022-03-15] MEDS ORDERED: KETOROLAC 15 MG/ML 1 ML VIAL IVP STA (21:37)
[2022-03-15] MEDS ORDERED: ACETAMINOPHEN TAB 500 MG TAB PO STA (21:37)
[2022-03-15 21:38] VITALS: RESP 16
[2022-03-15 22:47] LABS: Appearance,Urine Clear (Clear); Bilirubin,Urine Negative (Negative); Blood,Urine Negative (Negative); Color,Urine Colorless; Glucose,Urine (UA) Negative (Negative); Ketones,Urine Negative (Negative); Leukocyte Esterase,Urine Negative (Negative); Nitrite,Urine Negative (Negative); PH, Urine 6.5 (5.0-8.0); Protein,Urine Negative (Negative); Specific Gravity,Urine 1.007 (1.001-1.035); Urobilinogen,Urine <2.0 mg/dL (<2.0)
[2022-03-15 23:24] VITALS: BP 134/79; PULSE 54
== END 2022-03-15 23:24 | disposition home or self-care (01) ==
LOC: EC 17:50
DX: R42 Dizziness and giddiness (principal); R20.2 Paresthesia of skin; R51.9 Headache, unspecified; I10 Essential (primary) hypertension; R79.89 Other specified abnormal findings of blood chemistry; I48.91 Unspecified atrial fibrillation; Z88.1 Allergy status to other antibiotic agents; Z88.8 Allergy status to other drugs, medicaments and biological substances
CPT/HCPCS: 36415; 93005; 80053; 83735; 84100; 84484; 85025; 85610; 81003; 87502; 87635; 71045; 70450; 99284; 96374; 96361; J1885

== ENCOUNTER 2022-03-23 09:52 | Day surgery (SDC) | payer OTHER ==
[2022-03-16 15:34] VITALS: BMI 42.0
[~2022-03-23 09:52] MED LIST changes: -ALPRAZolam 0.25 MG TAB PO PRN; -ALPRAZolam 0.5 MG TAB PO PRN; -ASPIRIN 325 MG TAB PO ONE; +LACTATED RINGERS 1,000 ML IV SCH; -NITROGLYCERIN SL TABS 0.4 MG TAB SUBLINGUAL PRN; +SODIUM CHLORIDE 0.9% 1,000 ML IV SCH; -SODIUM CHLORIDE 0.9% 1,000 ML in EMPTY BAG 1 BAG IV ONE
[2022-03-23 11:14] LABS: INR 1.7 (<1.2); Prothrombin Time 17.3 sec (9.0-12.0)
[2022-03-23] MEDS ORDERED: IV FLUID CONTINUATION 950 ML IV ONE (12:07)
[2022-03-23] MEDS ORDERED: HEPARIN SOD,PORK IN 0.45% NACL 25,000 UNIT in 0.45% NACL 1 250ML.BAG IV ONE (12:08)
[2022-03-23] MEDS ORDERED: LIDOCAINE 1% INJ 10MG/ML (30 ML VIAL-PF) SQ ONE ×2 (12:28)
[2022-03-23] MEDS ORDERED: APIXABAN 5 MG TAB PO ONE (13:00)
[2022-03-23] MEDS ORDERED: IOPAMIDOL-370 100ML BTL INJ ONE (14:21)
[2022-03-23] MEDS ORDERED: ACETAMINOPHEN TAB 325 MG TAB PO PRN (14:50)
--- NOTE | 2022-03-23 15:05 | P.EPPROC ---
- EP Procedure Note Electrophysiology Procedure Note: PROCEDURE A. fib ablation/PVI plus left atrial septal ablation DIAGNOSIS Paroxysmal Atrial fibrillation, symptomatic, refractory to therapy RESULT No left atrial appendage mass seen on intracardiac echo, normal RV and LV size and function Successful A. fib ablation/pulmonary vein isolation of all veins using cryo- ablation Complete entrance block in all 4 veins confirmed Left atrial septal ablation No evidence for phrenic nerve injury Esophageal deflection YES. Right-sided esophagus PROCEDURE DETAILS Patient was brought to the EP lab in a fasting state after obtaining written informed consent. Procedure performed under general anesthesia Esophagus was intubated. Esophageal temperature monitoring with circa catheter. Esophageal deflection with an endoscope to avoid hypothermia of the esophagus. After initial muscle relaxant use, muscle relaxants were not given thereafter in order to assess phrenic nerve during procedure. Patient prepped and draped as per protocol Cryo ablation-set up with standard preparation of the cryoablation tools done. Femoral Venous access obtained on the right and left groins and sheaths placed Diagnostic catheters for the high right atrium, phrenic nerve stimulation and pacing, His bundle, coronary sinus placed Intracardiac echo catheter placed. Long sheath placed in the right atrium Left and right transseptal catheterization performed under intracardiac echo guidance. Intravenous heparin with aCT above 300 Later, catheter positioning and balloon positioning in the left atrium and pulmonary veins, under intracardiac echo guidance Diagnostic EP study with coronary sinus pacing and recording Baseline measurements: Sinus cycle length 1211 ms, [place] interval 148 ms, QRS 123 ms, QT interval 466 ms AH 46 and HV 39 ms Sinus node recovery times at 600, 540 ms with 1338, 1299 and 1256 ms respectively AV node Wenckebach block 370 ms Post ablation, on Isuprel AV node Wenckebach block 230 ms Slow pathway antegradely at 250 ms. No inducible SVT No inducible atrial fibrillation on high-dose Isuprel with straight pacing in the right atrium Transseptal catheterization performed RA pressure 20/11/15 LA pressure 25/11/18 Transseptal catheterization performed with standard sheath. The cryoablation sheath was then placed with an over the wire exchange without any acute complications. The cryoablation balloon was placed in the office of each pulmonary vein and all 4 pulmonary veins were isolated. IV dye was injected to confirm occlusion. Goal: achieve complete occlusion of the pulmonary vein, achieve -30 degrees C at 30 seconds and achieve -40 degrees C at 60 seconds and a time to effect of less than 60 seconds. If not, the balloon was repositioned to obtain this result After completion of Cryoblation with durations from 180-240 seconds, entrance block was confirmed with the Attain circular catheter in a roving fashion around the antrum of the pulmonary veins Phrenic nerve pacing was performed from the SVC, right innominate vein area and diaphragm voltage was monitored. Diaphragmatic contractions were also monitored manually for strength of contraction. At the end of the procedure the Achieve catheter was once again used to check for entrance block The superior branch of the left inferior was cannulated and left atrial septal ablation was performed between the transseptal puncture and the right-sided veins Electrograms were ablated successfully Phrenic nerve stimulation was performed to confirm diaphragmatic stimulation the end of the procedure Cine fluoroscopy was performed at the very end of the procedure to confirm movement of both diaphragms with inspiration and expiration At the end of the procedure the patient was extubated Venous sheaths were removed and hemostasis assured with a closure device PROCEDURES PERFORMED Diagnostic EP study CS pacing and recording Left and right transseptal catheterization Catheter the mapping of the tachycardia Intracardiac echocardiography Pulmonary vein isolation with transseptal and comprehensive EPS, [id number] Drug infusion, +[id number] Linear ablation, left atrium, +[id number]
--- NOTE | 2022-03-23 15:08 | P.PRLE ---
RE: Frieda Power Dear Nusrat Lares he'll underwent successful A. fib ablation Following the procedure high dose Isuprel and straight atrial pacing did not induce any further A. fib I will continue flecainide 50 mg twice daily for about 3 months and then taper off flecainide Her INRs have been consistently low on Coumadin and therefore I'm switching her to ELIQUIS to obtain consistent anticoagulation for the first 3 months post ablation which to the critical period For stroke prevention Thank you for entrusting me with the care of the patient Warm regards Sincerely Rudy Ballesteros
--- NOTE | 2022-03-23 15:11 | P.HPCAR ---
History of Present Illness This is Dr. Ballesteros dictating an H/P on this patient The patient was interviewed and examined IMPRESSION / ASSESSMENT: Paroxysmal atrial fibrillation RVR, very symptomatic Breakthrough episodes on flecainide Minimal coronary artery disease by cardiac catheterization Preserved LV systolic function Hypertension Obesity PLAN: Intracardiac echocardiography to evaluate for any left atrial thrombus or left atrial appendage thrombus If none is found we will heparinize high-dose and proceed with A. fib ablation Switched ELIQUIS immediately after extubation Proceed with PVI if there is no left atrial appendage thrombus HPI Patient continues to have episodes of atrial fibrillation RVR despite flecainide She is on warfarin ROS: No fever chills or rigors, no cough, phlegm or expectoration, no nausea, vomiting or diarrhea, no hematuria, dysuria, no musculoskeletal complaints, no strokes or seizures, no skin lesions. EXAMINATION: Afebrile 97.5F blood pressure 142/68 mmHg Pulse rate in the 60s No JVD Clear lungs Normal heart sounds REVIEW OF LABS, ECG & MEDICAL DATA Currently on warfarin 5 mg alternating with 7.5 mg INR subtherapeutic at 1.7 Physical Exam Vitals: Vital Signs Temp Pulse Resp BP BP Pulse Ox 03/23/22 10:45 97.5 F L 62 16 142/68 152/72 100 Intake and Output 03/23/22 03/23/22 03/23/22 06:59 14:59 22:59 Intake Total 696 Balance 696 Intake: IV 696 Other: Weight 106.8 kg Past Medical History Past Medical History: Atrial Fibrillation, GERD/Reflux, Hyperlipidemia, Osteoarthritis (OA), Skin Disorder Additional Past Medical History / Comment(s): PSORIASIS, abnormal stress test, hernia in "abdomen", constipation,. CHRONIC BACK PAIN. SEEN IN ER 03/15/22 FOR B/P ISSUES AND HEADACHE. SEE DR. BALLESTEROS'S H & P History of Any Multi-Drug Resistant Organisms: None Reported Past Surgical History: Heart Catheterization, Orthopedic Surgery Additional Past Surgical History / Comment(s): ganglion CYST REMOVED rt hand, TRIGGER THUMB rt hand Past Anesthesia/Blood Transfusion Reactions: Motion Sickness Smoking Status: Never smoker - Past Family History Mother Family Medical History: Cancer Additional Family Medical History / Comment(s): SKIN CA Father Family Medical History: Coronary Artery Disease (CAD), Diabetes Mellitus Physical Examination Vital Signs Temp Pulse Resp BP BP Pulse Ox 03/23/22 10:45 97.5 F L 62 16 142/68 152/72 100 Intake and Output 03/23/22 03/23/22 03/23/22 06:59 14:59 22:59 Intake Total 696 Balance 696 Intake: IV 696 Other: Weight 106.8 kg Results Coagulation 03/23/22 Range/Units 10:50 PT 17.3 H (9.0-12.0) sec Current Medications Generic Name Dose Route Start Last Admin Trade Name Freq PRN Reason Stop Dose Admin Acetaminophen 650 mg 03/23/22 14:50 Acetaminophen Tab 325 Mg Tab PO Q6HR PRN Mild Pain (Scale 1 to 3) Apixaban 5 mg 03/23/22 23:55 Apixaban 5 Mg Tab PO BID CHUCKY Protocol Flecainide Acetate 50 mg 03/23/22 21:00 Flecainide 50 Mg Tab PO Q12HR CHUCKY Acetaminophen 1,000 mg/ IV 100 mls @ 400 mls/hr 03/23/22 16:00 Solution IVPB 03/23/22 16:14 ONCE ONE Metoprolol Succinate 25 mg 03/23/22 21:00 Metoprolol Succinate (Er) 25 Mg Tab.Er.24h PO HS CHUCKY Sodium Chloride 12 ml 03/23/22 14:50 Sodium Chloride 0.9% Flush 10 Ml Syringe IV Q12HR PRN Line Flush Intake and Output 03/23/22 03/23/22 03/23/22 06:59 14:59 22:59 Intake Total 696 Balance 696 Intake: IV 696 Other: Weight 106.8 kg Patient Weight 03/24/22 06:59 Weight 106.8 kg
[2022-03-23] MEDS ORDERED: ACETAMINOPHEN IV (For NPO) 1,000 MG in EMPTY BAG 1 BAG IVPB ONE (16:00)
[2022-03-23] MEDS ORDERED: METOPROLOL SUCCINATE (ER) 25 MG TAB.ER.24H PO SCH (21:00)
[2022-03-23] MEDS: FLECAINIDE 50 MG TAB PO SCH (21:40)
[2022-03-24] MEDS: APIXABAN 5 MG TAB PO SCH ×2 (00:07→07:53)
[2022-03-24 02:57] VITALS: TEMP 98
--- NOTE | 2022-03-24 07:31 | P.DS ---
Providers Attending physician: Rudy Ballesteros Primary care physician: Nusrat [facility] Course: Patient is doing well. Minimal groin tenderness Minimal sore throat No chest discomfort Normal heart sounds Normal breath sounds No hematoma Twelve-lead EKG shows sinus mechanism normal ST segments Impression Paroxysmal symptomatic atrial fibrillation RVR Prick strips was on flecainide Plan switched to ELIQUIS 5 mg twice daily Prescription given Stop Coumadin Continue flecainide for 2 months and then taper off Follow-up with Dr. Marroquin Discharge home if hemodynamically stable with Eliquis Plan - Discharge Summary Discharge Rx Participant: Yes New Discharge Prescriptions: New Apixaban [Eliquis] 5 mg PO BID #60 tab Apixaban [Eliquis] 5 mg PO BID #180 tab Discontinued Warfarin [Coumadin] 5 mg PO MOTHSA@2330 Warfarin [Coumadin] 7.5 mg PO SUTUWEFR@2330 No Action Risankizumab-Rzaa [Skyrizi] 1 dose SQ DIRECTED Acetaminophen Tab [Tylenol Tab] 1,000 mg PO Q6HR PRN PRN Reason: Pain Flecainide [Tambocor] 50 mg PO Q12HR #180 tablet Calcium Carbonate/Vitamin D3 [Calcium 500 mg-Vit D3 5 mcg (200 Unit)] 1 each PO DAILY Metoprolol Succinate [Metoprolol Succinate ER] 25 mg PO HS Discharge Medication List Risankizumab-Rzaa [Skyrizi] 1 dose SQ DIRECTED 02/02/22 [History] Flecainide [Tambocor] 50 mg PO Q12HR #180 tablet 02/04/22 [Rx] Calcium Carbonate/Vitamin D3 [Calcium 500 mg-Vit D3 5 mcg (200 Unit)] 1 each PO DAILY 03/16/22 [History] Acetaminophen Tab [Tylenol Tab] 1,000 mg PO Q6HR PRN 03/23/22 [History] Apixaban [Eliquis] 5 mg PO BID #180 tab 03/23/22 [Rx] Apixaban [Eliquis] 5 mg PO BID #60 tab 03/23/22 [Rx] Metoprolol Succinate [Metoprolol Succinate ER] 25 mg PO HS 03/23/22 [History] Follow up Appointment(s)/Referral(s): Wicho Mcmahon MD [STAFF PHYSICIAN] - 1 Week Activity/Diet/Wound Care/Special Instructions: Eliquis script e-scribed to [facility] at [facility]- Needs to be picked up/or delivered prior to discharge Per Research Interviewer- No co-pay for Eliquis Post EP study - Ablation instructions 1. Keep access sites dry for 2 days. 2. No heavy lifting or straining for 2 days. 3. Avoid bending the hips repeatedly for 2 days. 4. You may go up and down stairs slowly Call if the following is noted 1. Bleeding, increasing swelling or pain at the access sites. 2. Increasing chest discomfort, especially upon taking a deep breath. 3. Increasing shortness of breath, at rest or with exertion. 4. Undue cough / phlegm 5. Difficulty or pain while swallowing. 6. Pain or change in color in the extremities. 7. Fever, chills, rigors. 8. Increasing headache or neurologic symptoms. 9. Dizziness, fainting, palpitations Stop warfarin Start ELIQUIS 5 mg twice daily Continue all other medications Discharge Disposition: HOME SELF-CARE
[2022-03-24] MEDS: FLECAINIDE 50 MG TAB PO SCH (07:53)
[2022-03-24 08:06] VITALS: BP 109/66; PULSE 70; RESP 16
== END 2022-03-24 13:32 | disposition home or self-care (01) ==
LOC: CATHEP 09:52 → 6NMEDSUR 14:14 → CATHEP 03-24 13:32
PROVIDERS: ATTEND Internal Medicine Clinical Cardiac Electrophysiology
DX: I48.91 Unspecified atrial fibrillation (principal); I10 Essential (primary) hypertension; E78.5 Hyperlipidemia, unspecified; M19.90 Unspecified osteoarthritis, unspecified site; E66.9 Obesity, unspecified; I25.10 Atherosclerotic heart disease of native coronary artery without angina pectoris; I48.0 Paroxysmal atrial fibrillation; K21.9 Gastro-esophageal reflux disease without esophagitis; R07.89 Other chest pain; Z79.01 Long term (current) use of anticoagulants
CPT/HCPCS: 93623; 93656; 93657; 85610; C1894 ×2; C1769 ×4; C1760; C1730 ×2; C1759; C1893; C1733; C1766; J2001; J0131; Q9967; J1644

== ENCOUNTER → 2022-05-20 | Outpatient (CLI) | payer OTHER ==
--- NOTE | 2022-05-20 08:52 | MR ---
EXAMINATION TYPE: MR lumbar spine wo con DATE OF EXAM: 05/20/2022 COMPARISON: None HISTORY: LOW BACK PAIN TECHNIQUE: Multiplanar, multisequence images of the lumbar spine were acquired without IV contrast. FINDINGS: Lumbar segments are intact. No paraspinal masses are identified. Conus medullaris has a normal appe arance. Multilevel disc desiccation. Multilevel anterior osteophytosis. L1-L2: No herniation, protrusion or disc bulging. No canal stenosis is present. Foramina are patent bilaterally. L2-L3: No herniation, protrusion or disc bulging. No canal stenosis is present. Ligamentum flavum bu ckling. Foramina are patent bilaterally. L3-L4: No herniation, protrusion or disc bulging. No canal stenosis is present. Ligamentum flavum bu ckling. Foramina are patent bilaterally. L4-L5: No herniation, protrusion or disc bulging. No canal stenosis is present. Ligamentum flavum bu ckling. Bilateral facet arthropathy with mild left neural foraminal stenosis. The right neural forame n is patent. L5-S1: No herniation, protrusion or disc bulging. No canal stenosis is present. Bilateral facet arth ropathy. Mild bilateral neural foraminal stenosis. IMPRESSION: 1. No disc herniation or significant central canal stenosis. 2. Minimal multilevel degenerative disease with osteoarthritic changes.
== END | disposition home or self-care (01) ==
LOC: RADMRIMAIN 07:18
PROVIDERS: ATTEND Family Medicine
DX: M51.36 Other intervertebral disc degeneration, lumbar region (principal); M47.816 Spondylosis without myelopathy or radiculopathy, lumbar region
CPT/HCPCS: 72148

== ENCOUNTER → 2023-04-08 | Outpatient (CLI) | payer OTHER ==
[2023-04-08 15:48] LABS: ALT 25 U/L (8-44); AST 28 U/L (13-35)
[2023-04-08 16:52] LABS: Basophils # (A) 0.02 X 10*3/uL (0.00-0.10); Basophils % (A) 0.5 %; Eosinophils # (A) 0.15 X 10*3/uL (0.04-0.35); HCT 39.5 % (37.2-46.3); HGB 12.7 g/dL (12.0-15.0); Lymphocytes # (A) 0.95 X 10*3/uL (0.90-5.00); Lymphocytes % (A) 25.6 %; MCH 29.2 pg (27.0-32.0); MCHC 32.2 g/dL (32.0-37.0); MCV 90.8 FL (80.0-97.0); Mean Platelet Volume 11.8 FL (9.5-12.2); Monocytes # (A) 0.47 X 10*3/uL (0.20-1.00); Monocytes % (A) 12.7 %; NRBC Per 100 WBC 0 X 10*3/uL (0.00-0.01); Neutrophils # (A) 2.11 X 10*3/uL (1.80-7.70); Neutrophils % (A) 56.9 %; Platelet Count 228 X 10*3/uL (140-440); RBC 4.35 X 10*6/uL (4.10-5.20); RDW 14.1 % (11.5-14.5); WBC 3.71 X 10*3/uL (4.50-10.00)
== END | disposition home or self-care (01) ==
LOC: LABWHC1 10:50
PROVIDERS: ATTEND Dermatology MOHS-Micrographic Surgery
DX: L40.0 Psoriasis vulgaris (principal); L66.1 Lichen planopilaris
CPT/HCPCS: 36415; 84450; 84460; 85025; 86480

== ENCOUNTER → 2023-04-16 | Outpatient (CLI) | payer OTHER ==
--- NOTE | 2023-04-16 11:48 | XR ---
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 TECHNIQUE: XR chest 2V Frontal and lateral views of the chest. FINDINGS: Lungs/Pleura: There is no evidence of pleural effusion, focal consolidation, or pneumothorax. Pulmonary vascularity: Unremarkable. Heart/mediastinum: Cardiomediastinal silhouette is enlarged and stable. Musculoskeletal: No acute osseous pathology. IMPRESSION: No acute cardiopulmonary disease/process.
== END | disposition home or self-care (01) ==
LOC: RADXRMAIN 11:07
PROVIDERS: ATTEND Nurse Practitioner Family
DX: L40.0 Psoriasis vulgaris (principal)
CPT/HCPCS: 71046

== ENCOUNTER 2023-06-29 09:08 | Day surgery (SDC) | payer BC, OTHER ==
--- NOTE | 2023-06-29 08:03 | P.GSHP ---
History of Present Illness H&P Date: 06/29/23 CHIEF COMPLAINT: GERD and colon screen HISTORY OF PRESENT ILLNESS: The patient is a 57-year-old female who presents with gastroesophageal reflux disease and need for colon screen. Upper and lower endoscopy were offered for further evaluation and management. PAST MEDICAL HISTORY: Please see list. PAST SURGICAL HISTORY: Please see list. MEDICATIONS: Please see list. ALLERGIES: Please see list. SOCIAL HISTORY: No illicit drug use FAMILY HISTORY: No reports of Crohn disease or ulcerative colitis. REVIEW OF ORGAN SYSTEMS: CONSTITUTIONAL: No reports of fevers or chills. GI: Denies any blood in stools or constipation. PHYSICAL EXAM: VITAL SIGNS: Stable GENERAL: Well-developed pleasant in no acute distress. HEENT: No scleral icterus. Extraocular movements grossly intact. Moist buccal mucosa. NECK: Supple without lymphadenopathy. CHEST: Unlabored respirations. Equal bilateral excursions. CARDIOVASCULAR: Regular rate and rhythm. Distal 2+ pulses. ABDOMEN: Soft, nondistended. MUSCULOSKELETAL: No clubbing, cyanosis, or edema. ASSESSMENT: 1. Gastroesophageal reflux disease 2. Colon screen. PLAN: 1. Recommend proceeding with an upper and lower endoscopy Past Medical History Past Medical History: Atrial Fibrillation, GERD/Reflux, Osteoarthritis (OA), Skin Disorder Additional Past Medical History / Comment(s): PSORIASIS, abnormal stress test in past hernia in "abdomen", constipation, History of Any Multi-Drug Resistant Organisms: None Reported Past Surgical History: Cardiac Ablation, Orthopedic Surgery Additional Past Surgical History / Comment(s): ganglion CYST REMOVED rt hand, TRIGGER THUMB rt hand, cryo ablation,verisocse vein removed from lft leg Past Anesthesia/Blood Transfusion Reactions: Motion Sickness Smoking Status: Never smoker - Past Family History Mother Family Medical History: Cancer Additional Family Medical History / Comment(s): SKIN CA Father Family Medical History: Coronary Artery Disease (CAD), Diabetes Mellitus Medications and Allergies Home Medications Medication Instructions Recorded Confirmed Type Apixaban [Eliquis] 5 mg PO BID #180 tab 03/23/22 06/24/23 Rx Metoprolol Succinate [Metoprolol 75 mg PO HS 03/23/22 06/24/23 History Succinate ER] Fish Oil(Unk) 1 tab PO DAILY 06/24/23 06/24/23 History Hydrocodone/Acetaminophen 1 tab PO BID PRN 06/24/23 06/24/23 History [Hydrocodone/Acetaminophen 7.5-325] Multivitamins, Thera [Multivitamin 1 tab PO DAILY 06/24/23 06/24/23 History (formulary)] Allergies Allergy/AdvReac Type Severity Reaction Status Date / Time cephalexin [From Keflex] Allergy Anaphylaxis Verified 06/24/23 12:07 tetracycline Allergy Anaphylaxis Verified 06/24/23 12:07 adhesive AdvReac Unknown Verified 06/24/23 12:23 super glue Allergy Dyspnea Uncoded 06/24/23 12:23
[~2023-06-29 09:08] MED LIST changes: -LACTATED RINGERS 1,000 ML IV SCH; +LIDOCAINE 1% (10MG/ML) FOR IV START INTRADERMA PRN; +ONDANSETRON 4 MG/2 ML VIAL IVP PRN; -SODIUM CHLORIDE 0.9% 1,000 ML IV SCH
[2023-06-29] MEDS: LACTATED RINGERS 1,000 ML IV SCH (10:04)
[2023-06-29 10:28] VITALS: TEMP 97.4
[2023-06-29] MEDS ORDERED: PROPOFOL 10 MG/ML 20 ML VIAL IV ONE (10:40)
[2023-06-29] MEDS ORDERED: LIDOCAINE 1% INJ 10MG/ML (20 ML MDV) ONE (10:40)
--- NOTE | 2023-06-29 11:05 | P.PCN ---
Date of Procedure: 06/29/23 Description of Procedure: PREOPERATIVE DIAGNOSIS: Gastroesophageal reflux disease Dysphagia POSTOPERATIVE DIAGNOSIS: Upper esophageal stenosis Diaphragmatic hiatal hernia OPERATION: Esophagogastroduodenoscopy with rigid dilator over the guidewire 54 Fr with dilation Esophagogastroduodenoscopy with cold forceps biopsies stomach/antrum, duodenum, esophagus SURGEON: Halle Villegas MD ANESTHESIA: MAC. INDICATIONS: The patient is a 57-year-old male who presents with dysphagia and reflux disease. Benefits and risks of the procedure were described. Informed consent was obtained. DESCRIPTION: The patient was brought into the endoscopy suite and laid in the left lateral decubitus position. After a timeout was confirmed, the procedure was initiated. An Olympus gastroscope was passed into the posterior oropharynx. Next using an Chinese rigid dilator, a guidewire was placed through the gas troscope. Next the scope was withdrawn. A 54-Yi rigid Chinese dilator was passed carefully along the posterior oropharynx to 45 cm and left in place for 2-3 minutes stretch. The dilator was withdrawn including the guidewire. The scope was reentered along the posterior oropharynx with no findings of full- thickness tear. Additional findings below. Within the stomach, cold forceps biopsies obtained including duodenum and esophagus. The lower esophageal valve was evaluated with Hill grade 3 lower esophageal valve. LA grade B erosive esophagitis was identified. No full-thickness injury was encountered. The GI tract was desufflated. The patient tolerated the procedure well. FINDINGS: Upper esophageal stenosis dilated 54-Yi rigid dilator Diaphragmatic hiatus at 41 cm from the incisors Squamocolumnar junction 40 cm from the incisors. Diaphragmatic hiatal hernia, 1 cm Gastric body and fundus cold forceps biopsies obtained Duodenum with biopsies obtained LA grade B erosive esophagitis, biopsies obtained Hill grade 3 lower esophageal valve. RECOMMENDATIONS: Upper endoscopy as needed
--- NOTE | 2023-06-29 11:43 | P.PCN ---
Date of Procedure: 06/29/23 Description of Procedure: PREOPERATIVE DIAGNOSIS: Colonoscopy screening POSTOPERATIVE DIAGNOSIS: Tubular adenoma transverse colon Sigmoid diverticulosis Internal hemorrhoids, grade 2 OPERATION: Colonoscopy to the ileocecal valve and appendiceal orifice, cecum Colonoscopy with hot snare polypectomy SURGEON: Halle Villegas MD. ANESTHESIA: MAC. INDICATIONS: The patient is an 57-year-old female who presents for colon screening. Enefits and risks were described and informed consent was obtained. DESCRIPTION OF PROCEDURE: The patient had undergone GoLytely prep. The patient had been brought into the operating room and laid in the left lateral decubitus position. After adequate intravenous sedation, the rectum was examined with 2% lidocaine jelly. The prostate was unremarkable. External hemorrhoids were encountered. The rectal tone was within normal limits. No lesions were palpated in the rectal vault. An Olympus colonoscope was advanced until the cecum, ileocecal valve and appendiceal orifice were clearly viewed. The prep was fair. Sigmoid diverticulosis was encountered. Colonic polyps were found and removed. No evidence of focal colitis was found. Retroflexion of the scope demonstrated grade 2 internal hemorrhoids without active bleeding or inflammation. The colon was desufflated. The patient had tolerated the procedure well. Withdrawal time was over 6 minutes. FINDINGS: Aronchick preparation quality scale 2+ (1-5) Internal hemorrhoids, grade 2 External hemorrhoids, grade 2. No arteriovenous malformations. Sigmoid diverticulosis Removal of 2 polyps: - Snare polypectomy transverse colon, 5 mm tubulovillous adenoma No focal colitis. RECOMMENDATIONS: Repeat colonoscopy 3 years, 2026 Plan - Discharge Summary Discharge Rx Participant: No New Discharge Prescriptions: Continue Apixaban [Eliquis] 5 mg PO BID #180 tab Multivitamins, Thera [Multivitamin (formulary)] 1 tab PO DAILY Fish Oil(Unk) 1 tab PO DAILY Metoprolol Succinate [Metoprolol Succinate ER] 75 mg PO HS Hydrocodone/Acetaminophen [Hydrocodone/Acetaminophen 7.5-325] 1 tab PO BID PRN PRN Reason: Pain Discharge Medication List Apixaban [Eliquis] 5 mg PO BID #180 tab 03/23/22 [Rx] Metoprolol Succinate [Metoprolol Succinate ER] 75 mg PO HS 03/23/22 [History] Fish Oil(Unk) 1 tab PO DAILY 06/24/23 [History] Hydrocodone/Acetaminophen [Hydrocodone/Acetaminophen 7.5-325] 1 tab PO BID PRN 0 06/24/23 [History] Multivitamins, Thera [Multivitamin (formulary)] 1 tab PO DAILY 06/24/23 [History] Follow up Appointment(s)/Referral(s): Halle Villegas MD [STAFF PHYSICIAN] - 07/19/23 3:00 pm Patient Instructions/Handouts: *Surgery [facility] - (Anesthesia) Discharge Instructions Outpatient Surgery, Colorectal Polyps (GEN), Esophageal Dilation (D C) Activity/Diet/Wound Care/Special Instructions: Repeat colonoscopy 3 years, 2026. Start blood thinner June 30 Discharge Disposition: HOME SELF-CARE
[2023-06-29 12:13] VITALS: BP 130/79; PULSE 67; RESP 14
== END 2023-06-29 12:06 | disposition home or self-care (01) ==
LOC: ORWHC2ENDO 09:08
PROVIDERS: ATTEND Surgery Plastic and Reconstructive Surgery
DX: Z12.11 Encounter for screening for malignant neoplasm of colon (principal); K29.50 Unspecified chronic gastritis without bleeding; K22.2 Esophageal obstruction; K21.9 Gastro-esophageal reflux disease without esophagitis; K64.8 Other hemorrhoids; K44.9 Diaphragmatic hernia without obstruction or gangrene; D12.3 Benign neoplasm of transverse colon; K57.30 Diverticulosis of large intestine without perforation or abscess without bleeding; K64.1 Second degree hemorrhoids; I48.91 Unspecified atrial fibrillation; M19.90 Unspecified osteoarthritis, unspecified site; Z79.01 Long term (current) use of anticoagulants; Z88.1 Allergy status to other antibiotic agents; Z88.5 Allergy status to narcotic agent; Z79.899 Other long term (current) drug therapy
CPT/HCPCS: 88305; 45385; 43239; 43248; J2001; J2704

== ENCOUNTER → 2023-08-26 | Outpatient (CLI) | payer BC, OTHER ==
--- NOTE | 2023-08-29 11:03 | MR ---
EXAMINATION TYPE: MR shoulder RT wo con DATE OF EXAM: 08/26/2023 COMPARISON: None HISTORY: Rt shoulder pain TECHNIQUE: Multiplanar, multisequence imaging of the right shoulder is performed without contrast. FINDINGS: Exam limited by motion artifact. Rotator Cuff: Limited due to motion artifact. No muscular atrophy. Subscapularis tendon has normal ap pearance. There is increased signal involving the distal margin of the conjoined portion of the tendo n and infraspinatus tendon compatible with tendinosis. No through thickness tear identified. Intrasub stance tear in the differential diagnosis. There is a small amount of fluid in the subacromial bursa. Mild increased signal and thickening involving the insertion of the supraspinatus tendon also compat ible with diffuse tendinopathy. There is loss of the fat within the rotator interval. Frozen shoulder or capsulitis in the differential diagnosis. Acromioclavicular Joint: Mild AC joint arthropathy. Mild mass effect along the upper margin of the brewer praspinatus tendon. Glenohumeral Joint: No sizable joint effusion. Grossly the glenohumeral ligaments are intact. Labrum: Limited by artifact but the labrum appears grossly intact given limitation of non-arthrogram study. Biceps Tendon: The long head of biceps is in normal location within bicipital groove. Bone marrow signal: Focal area of bony contusion or nonspecific edema involving the humeral head. IMPRESSION: 1. Limited exam due to motion artifact demonstrates diffuse tendinopathy of the distal supraspinatus and infraspinatus tendons. There is a small amount of fluid in the subacromial -subdeltoid bursa but no definite through thickness tear. Intrasubstance tear in the differential diagnosis. 2. Correlate for capsulitis.
== END | disposition home or self-care (01) ==
LOC: RADMRIMAIN 10:57
PROVIDERS: ATTEND Family Medicine
DX: M25.511 Pain in right shoulder (principal); M15.8 Other polyosteoarthritis

== ENCOUNTER → 2023-09-21 | Outpatient (CLI) | payer OTHER ==
--- NOTE | 2023-09-21 10:51 | XR ---
EXAMINATION TYPE: XR chest 2V DATE OF EXAM: 09/21/2023 COMPARISON: 04/16/2023 TECHNIQUE: PA and lateral views submitted. HISTORY: Left rib pain FINDINGS: The lungs are clear and there is no pneumothorax, pleural effusion, or focal pneumonia. Heart size normal and no overt failure. Osseous structures demonstrate hypertrophic and degenerative changes of the spine. IMPRESSION: 1. No acute process.
--- NOTE | 2023-09-21 10:56 | XR ---
EXAMINATION TYPE: XR ribs LT DATE OF EXAM: 09/21/2023 COMPARISON: NONE HISTORY: Pain TECHNIQUE: 4 views submitted FINDINGS: Lung campos clear. No pleural effusion or pneumothorax. Mildly prominent. Atherosclerotic change aorta. Slight deformity of the anterolateral left fifth rib. . IMPRESSION: No acute displaced rib fracture. Slight deformity anterolateral left fifth rib should be correlated with point tenderness to exclude a hairline nondisplaced fracture.
== END | disposition home or self-care (01) ==
LOC: RADXRMAIN 10:28
PROVIDERS: ATTEND Emergency Medicine
DX: S29.019A Strain of muscle and tendon of unspecified wall of thorax, initial encounter (principal)
CPT/HCPCS: 71046

== ENCOUNTER → 2023-10-13 | Outpatient (CLI) | payer OTHER ==
--- NOTE | 2023-10-14 11:18 | XR ---
EXAMINATION TYPE: XR chest 2V DATE OF EXAM: 10/13/2023 5:13 PM CLINICAL INDICATION:Female, 58 years old with history of S29.019 ACERATION OF MUSCLE AND TENDON OF UN SP WAL; [facility] COMPARISON: None TECHNIQUE: XR chest 2V Frontal and lateral views of the chest. FINDINGS: Lungs/Pleura: There is no evidence of pleural effusion, focal consolidation, or pneumothorax. Pulmonary vascularity: Unremarkable. Heart/mediastinum: Cardiomediastinal silhouette is unremarkable. Musculoskeletal: No acute osseous pathology. IMPRESSION: Chronic changes without acute pulmonary process. No significant change from prior.
--- NOTE | 2023-10-14 11:27 | XR ---
EXAMINATION TYPE: XR ribs LT DATE OF EXAM: 10/13/2023 5:13 PM CLINICAL INDICATION:Female, 58 years old with history of S29.019 ACERATION OF MUSCLE AND TENDON OF UN SP WAL; [facility] COMPARISON: 10/13/2023 TECHNIQUE: XR ribs LT; Frontal and oblique views of the ribs with frontal chest radiograph. FINDINGS: The ribs have a normal appearance. No evidence of fracture. Overall, the lungs are clear. The cardiac silhouette is normal in size. The remaining osseous structures are intact. IMPRESSION: No acute osseous pathology.
== END | disposition home or self-care (01) ==
LOC: RADXRMAIN 16:53
PROVIDERS: ATTEND Emergency Medicine
DX: S29.019A Strain of muscle and tendon of unspecified wall of thorax, initial encounter (principal)
CPT/HCPCS: 71046

== ENCOUNTER 2024-01-04 03:36 | Observation (INO) | payer BC, OTHER ==
--- NOTE | 2024-01-04 04:56 | ED ---
Chest Pain HPI - General Chief Complaint: Chest Pain Stated Complaint: Chest pain Time Seen by Provider: 01/04/24 03:46 Source: EMS Mode of arrival: EMS Limitations: no limitations - History of Present Illness Initial Comments: Patient is a 58-year-old woman who presents to have evaluation of left-sided chest pain that started tonight while she was working. The patient states she was not really exerting herself. She states the pain radiates to her neck, to her shoulder and to her back. The pain was partially relieved with nitroglycerin given by EMS. She does not have associated symptoms, no dyspnea, diaphoresis, nausea or vomiting. MD Complaint: chest pain -: hour(s) Onset: during rest Pain Location: left chest Pain Radiation: LUE, back, neck Severity: moderate Quality: aching Consistency: now resolved Improves With: nitroglycerin Worsens With: nothing Treatments Prior to Arrival: aspirin, nitroglycerin - Related Data Home Medications Medication Instructions Recorded Confirmed Metoprolol Succinate [Metoprolol 75 mg PO HS 03/23/22 01/04/24 Succinate ER] Hydrocodone/Acetaminophen 1 tab PO BID PRN 06/24/23 01/04/24 [Hydrocodone/Acetaminophen 7.5-325] Risankizumab-Rzaa [Skyrizi Pen] 150 mg SQ Q90D 01/04/24 01/04/24 Allergies Allergy/AdvReac Type Severity Reaction Status Date / Time cephalexin [From Keflex] Allergy Anaphylaxis Verified 01/04/24 08:03 tetracycline Allergy Anaphylaxis Verified 01/04/24 08:03 adhesive AdvReac Unknown Verified 01/04/24 08:03 hydrocortisone AdvReac Swelling Verified 01/04/24 08:03 [From Cortizone-10] super glue Allergy Dyspnea Uncoded 01/04/24 08:03 Review of Systems ROS Statement: Those systems with pertinent positive or pertinent negative responses have been documented in the HPI. ROS Other: All systems not noted in ROS Statement are negative. Constitutional: Denies: fever, chills, weakness Respiratory: Denies: cough, dyspnea Cardiovascular: Reports: chest pain. Denies: palpitations, orthopnea, edema, syncope Gastrointestinal: Denies: abdominal pain, nausea, vomiting, diarrhea Genitourinary: Denies: dysuria, hematuria Musculoskeletal: Denies: back pain Skin: Denies: rash Neurological: Denies: headache, weakness, numbness EKG Findings - EKG Results: EKG: interpreted by ERMD, sinus rhythm, normal axis EKG shows: bradycardia (59 bpm) - Blocks, [place], Hypertrophy, ST Abn: AV and intraventricular conduction: intraventricular conduction delay Repolarization changes or abnormalities: nonspecific abnormality, ST segment, and/or T wave Past Medical History Past Medical History: Atrial Fibrillation, GERD/Reflux, Osteoarthritis (OA), Skin Disorder Additional Past Medical History / Comment(s): PSORIASIS, abnormal stress test in past hernia in "abdomen", constipation, History of Any Multi-Drug Resistant Organisms: None Reported Past Surgical History: Cardiac Ablation, Orthopedic Surgery Additional Past Surgical History / Comment(s): ganglion CYST REMOVED rt hand, TRIGGER THUMB rt hand, cryo ablation,verisocse vein removed from lft leg Past Anesthesia/Blood Transfusion Reactions: Motion Sickness Past Psychological History: No Psychological Hx Reported Smoking Status: Never smoker - Past Family History Mother Family Medical History: Cancer Additional Family Medical History / Comment(s): SKIN CA Father Family Medical History: Coronary Artery Disease (CAD), Diabetes Mellitus General Exam Limitations: no limitations General appearance: alert, in no apparent distress Head exam: Present: atraumatic, normocephalic Eye exam: Present: normal appearance. Absent: scleral icterus, conjunctival injection Neck exam: Present: normal inspection Respiratory exam: Present: normal lung sounds bilaterally. Absent: respiratory distress, wheezes, rales, rhonchi, stridor, chest wall tenderness, accessory muscle use Cardiovascular Exam: Present: regular rate, normal rhythm, normal heart sounds. Absent: systolic murmur, diastolic murmur, rubs, gallop GI/Abdominal exam: Present: soft. Absent: distended, tenderness, guarding, rebound, rigid, mass Extremities exam: Present: normal inspection, normal capillary refill. Absent: pedal edema, calf tenderness Back exam: Present: normal inspection. Absent: CVA tenderness (R), CVA tenderness (L) Neurological exam: Present: alert Skin exam: Present: warm, dry, intact, normal color. Absent: rash Course Vital Signs 01/04/24 01/04/24 01/04/24 03:39 06:13 07:48 Temperature 97.7 F 97.5 F L 97.8 F Pulse Rate 61 60 55 L Respiratory 18 18 16 Rate Blood Pressure 148/82 118/57 121/56 O2 Sat by Pulse 98 97 99 Oximetry 01/04/24 01/04/24 10:40 16:04 Temperature Pulse Rate 60 60 Respiratory 16 18 Rate Blood Pressure 147/90 143/58 O2 Sat by Pulse 99 Oximetry Chest Pain MDM - MDM The patient had chest x-ray that I interpreted as negative for acute infiltrate, pneumothorax, congestive heart failure Was pt. sent in by a medical professional or institution (, PA, SERVICE WRITER, urgent care, hospital, or longterm...) When possible be specific @ -[No] Did you speak to anyone other than the patient for history (EMS, parent, family, police, friend...)? What history was obtained from this source @ -[No] Did you review nursing and triage notes (agree or disagree)? Why? @ -[I reviewed and agree with nursing and triage notes] Were old charts reviewed (outside hosp., previous admission, EMS record, old EKG, old radiological studies, urgent care reports/EKG's, longterm records)? Report findings @ -[No old charts were reviewed] Differential Diagnosis (chest pain, altered mental status, abdominal pain women, abdominal pain men, vaginal bleeding, weakness, fever, dyspnea, syncope, headache, dizziness, GI bleed, back pain, seizure, CVA, palpatations, mental health, musculoskeletal)? @ -[Differential Chest Pain: Stable Angina, Unstable Angina, STEMI, NSTEMI Aortic Dissection, Pneumothorax, Musculoskeletal, Esophageal Spasm GERD, Cholecystitis, Pancreatitis, Zoster, this is not meant to be an all-inclusive list. EKG interpreted by me (3pts min.). @ -[I interpreted as above] X-rays interpreted by me (1pt min.). @ -[I interpreted as above CT interpreted by me (1pt min.). @ -[None done] U/S interpreted by me (1pt. min.). @ -[None done] What testing was considered but not performed or refused? (CT, X-rays, U/S, labs)? Why? @ -[None] What meds were considered but not given or refused? Why? @ -[None] Did you discuss the management of the patient with other professionals (professionals i.e. , PETER, SERVICE WRITER, lab, RT, psych nurse, social sciences professor, director enterprise systems, teacher, aircraft electronics technical officer, casework manager)? Give summary @ -[Case discussed with admitting physician and treatment recommendations are incorporated Was smoking cessation discussed for >3mins.? @ -[No] Was critical care preformed (if so, how long)? @ -[No] Were there social determinants of health that impacted care today? How? (Homelessness, low income, unemployed, alcoholism, drug addiction, transportation, low edu. Level, literacy, decrease access to med. care, residential, rehab)? @ -[No] Was there de-escalation of care discussed even if they declined (Discuss DNR or withdrawal of care, Hospice)? DNR status @ -[No] What co-morbidities impacted this encounter? (DM, HTN, Smoking, COPD, CAD, Cancer, CVA, ARF, Chemo, Hep., AIDS, mental health diagnosis, sleep apnea, morbid obesity)? @ -[None] Was patient admitted / discharged? Hospital course, mention meds given and rou te, prescriptions, significant lab abnormalities, going to OR and other pertinent info. @ -[Patient is a 58-year-old woman who is here with intermittent pains that may be consistent with angina. Given the patient's clinical presentation she will be admitted to have serial cardiac enzymes, telemetry monitoring, cardiology consultation. Undiagnosed new problem with uncertain prognosis? @ -[No] Drug Therapy requiring intensive monitoring for toxicity (Heparin, Nitro, Insulin, Cardizem)? @ -[No] Were any procedures done? @ -[No] Diagnosis/symptom? @ -[Acute chest/neck pain Acute, or Chronic, or Acute on Chronic? @ -[Acute Uncomplicated (without systemic symptoms) or Complicated (systemic symptoms)? @ -[Uncomplicated Side effects of treatment? @ -[No] Exacerbation, Progression, or Severe Exacerbation? @ -[No] Poses a threat to life or bodily function? How? (Chest pain, [place], [place], pneumonia, PE, COPD, DKA, ARF, appy, cholecystitis, CVA, Diverticulitis, Homicidal, Suicidal, threat to staff... and all critical care pts) @ -[Requires further evaluation Disposition Clinical Impression: Dyspnea, Chest pain Disposition: ADMITTED IP TO THIS [facility] Condition: Good Is patient prescribed a controlled substance at d/c from ED?: No
[2024-01-04 05:24] LABS: Basophils % (A) 1 %; Eosinophils # (A) 0.3 k/uL (0-0.7); Eosinophils % (A) 6 %; HCT 38.7 % (34.0-46.0); HGB 12.7 gm/dL (11.4-16.0); Lymphocytes # (A) 1.3 k/uL (1.0-4.8); Lymphocytes % (A) 31 %; MCHC 32.8 g/dL (31.0-37.0); MCV 91.4 fL (80.0-100.0); Mean Platelet Volume 8.8; Monocytes # (A) 0.3 k/uL (0-1.0); Monocytes % (A) 7 %; Neutrophils # (A) 2.3 k/uL (1.3-7.7); Neutrophils % (A) 53 %; Platelet Count 246 k/uL (150-450); RBC 4.24 m/uL (3.80-5.40); WBC 4.3 k/uL (3.8-10.6)
[2024-01-04 05:37] LABS: ALT 24 U/L (4-34); AST 31 U/L (14-36); African American GFR (CKD) >90 (>60 ml/min/1.73 sqM); Albumin 3.7 g/dL (3.5-5.0); Alkaline Phosphatase 133 U/L (38-126); Anion Gap 3 mmol/L; Blood Urea Nitrogen 15 mg/dL (7-17); Calcium 9.1 mg/dL (8.4-10.2); Carbon Dioxide 23 mmol/L (22-30); Chloride 102 mmol/L (98-107); Glucose 87 mg/dL (74-99); Non-African American GFR(CKD) >90 (>60 ml/min/1.73 sqM); Sodium 128 mmol/L (137-145); Total Protein 6.3 g/dL (6.3-8.2)
[2024-01-04 06:14] LABS: INR 0.9 (<1.2); Partial Thromboplastin Time 22.8 sec (22.0-30.0); Prothrombin Time 10.2 sec (10.0-12.5)
--- NOTE | 2024-01-04 06:39 | XR ---
EXAM: XR Chest, 2 Views CLINICAL HISTORY: Chest Pain TECHNIQUE: Frontal and lateral views of the chest. COMPARISON: 10/13/2023 FINDINGS: Lungs: Unremarkable. No consolidation. Pleural space: Unremarkable. Mediastinum: Unremarkable. Normal mediastinal contour. Bones/joints: No acute findings. IMPRESSION: No acute findings.
[2024-01-04] MEDS ORDERED: NITROGLYCERIN SL TABS 0.4 MG TAB SUBLINGUAL PRN ×2 (06:41→13:49)
[2024-01-04] MEDS: SODIUM CHLORIDE 0.9% 500 ML 500 ML IV STA (06:56)
[2024-01-04] MEDS: MULTIVITAMINS, THERA 1 EACH TAB PO SCH (08:17)
[2024-01-04] MEDS ORDERED: DOBUTamine DRIP for NUC MED 500 MG in DEXTROSE/WATER 1 250ML.BAG IV PRN (08:19)
[2024-01-04] MEDS ORDERED: REGADENOSON 0.4 MG/5 ML SYRINGE IV PRN (08:21)
[2024-01-04] MEDS ORDERED: AMINOPHYLLINE 500 MG/20 ML VIAL IV PRN (08:21)
[2024-01-04] MEDS ORDERED: CAFFEINE CITRATE 60 MG/3 ML VIAL IV PRN (08:21)
[2024-01-04] MEDS ORDERED: DOBUTamine DRIP for NUC MED 500 MG/250 ML BAG IV ONE (09:00)
--- NOTE | 2024-01-04 10:18 | P.CRDCN ---
History of Present Illness History of present illness: HISTORY OF PRESENT ILLNESS: This is a 58-year-old female with a past medical history significant for atrial fibrillation with previous ablation. Patient follows in the office with Dr. Cirilo franks. We have been asked to see the patient in consultation for chest pain. Patient examined at the bedside in the emergency room. Patient states yesterday she began to have pain in the middle of her chest that went into her arm and jaw. She denies having pain like this previously. Denies any nausea or vomiting. At the time of examination she denies any chest pain or pressure. Vital signs are stable. DIAGNOSTICS: - EKG reveals sinus mechanism with no signs of acute ischemia - Chest xray negative for acute process - Laboratory data: WBC 4.3. Hemoglobin 12.7. Platelet count 246. Sodium 128. Potassium 4.0. BUN 15. Creatinine 0.69. Magnesium 2.0. Troponin negative x 2. - Current home cardiac medications include metoprolol succinate 75 mg at night - Most recent echocardiogram obtained in July 2023 revealed ejection fraction 55 to 60%, moderate MR, moderate TR - Cardiac catheterization history: July 2019 revealing no significant CAD REVIEW OF SYSTEMS: At the time of my exam: CONSTITUTIONAL: Denies fever or chills. HEENT: Denies blurred vision, vision changes, or eye pain. Denies hemoptysis CARDIOVASCULAR: Denies chest pain. Denies orthopnea. Denies PND. Denies palpitat ions RESPIRATORY: Denies shortness of breath. GASTROINTESTINAL: Denies abdominal pain. Denies nausea or vomiting. HEMATOLOGIC: Denies bleeding disorders. GENITOURINARY: Denies any blood in urine. SKIN: Denies pruitis. Denies rash. PHYSICAL EXAM: VITAL SIGNS: Reviewed. GENERAL: Well-developed in no acute distress. HEENT: Head is normocephalic. Pupils are equal, round. Sclerae anicteric. Mucous membranes of the mouth are moist. Neck supple. No JVD or thyromegaly LUNGS: Respirations even and unlabored. Lungs essentially clear to auscultation bilaterally. HEART: Regular rate and rhythm. S1 and S2 heard. ABDOMEN: Soft. Nondistended. Nontender. EXTREMITIES: Normal range of motion. No clubbing or cyanosis. Peripheral pulses intact. No lower extremity edema NEUROLOGIC: Awake and alert. Oriented x 3. ASSESSMENT: Chest pain Paroxysmal atrial fibrillation with previous ablation No significant CAD, status post cardiac cath in July 2019 Obesity: BMI 42.5 PLAN: An acute coronary event has been ruled out Obtain 2D echo to assess cardiac structure and function Resume home cardiac medications Patient to undergo Lexiscan stress test this morning If negative, she may be discharged home from a cardiac standpoint Nurse practitioner note has been reviewed by physician. Signing provider agrees with the documented findings, assessment, and plan of care documented by HOGSHEAD HOOPER as a scribe. Past Medical History Past Medical History: Atrial Fibrillation, GERD/Reflux, Osteoarthritis (OA), Skin Disorder Additional Past Medical History / Comment(s): PSORIASIS, abnormal stress test in past hernia in "abdomen", constipation, History of Any Multi-Drug Resistant Organisms: None Reported Past Surgical History: Cardiac Ablation, Orthopedic Surgery Additional Past Surgical History / Comment(s): ganglion CYST REMOVED rt hand, TRIGGER THUMB rt hand, cryo ablation,verisocse vein removed from lft leg Past Anesthesia/Blood Transfusion Reactions: Motion Sickness Past Psychological History: No Psychological Hx Reported Smoking Status: Never smoker - Past Family History Mother Family Medical History: Cancer Additional Family Medical History / Comment(s): SKIN CA Father Family Medical History: Coronary Artery Disease (CAD), Diabetes Mellitus Medications and Allergies Home Medications Medication Instructions Recorded Confirmed Type Metoprolol Succinate [Metoprolol 75 mg PO HS 03/23/22 01/04/24 History Succinate ER] Hydrocodone/Acetaminophen 1 tab PO BID PRN 06/24/23 01/04/24 History [Hydrocodone/Acetaminophen 7.5-325] Ibuprofen [Motrin] 600 mg PO BID PRN 01/04/24 01/04/24 History Risankizumab-Rzaa [Skyrizi Pen] 150 mg SQ Q90D 01/04/24 01/04/24 History Allergies Allergy/AdvReac Type Severity Reaction Status Date / Time cephalexin [From Keflex] Allergy Anaphylaxis Verified 01/04/24 08:03 tetracycline Allergy Anaphylaxis Verified 01/04/24 08:03 adhesive AdvReac Unknown Verified 01/04/24 08:03 hydrocortisone AdvReac Swelling Verified 01/04/24 08:03 [From Cortizone-10] super glue Allergy Dyspnea Uncoded 01/04/24 08:03 Physical Exam Vitals: Vital Signs Temp Pulse Resp BP Pulse Ox 01/04/24 07:48 97.8 F 55 L 16 121/56 99 01/04/24 06:13 97.5 F L 60 18 118/57 97 01/04/24 03:39 97.7 F 61 18 148/82 98 Intake and Output 01/03/24 01/04/24 01/04/24 22:59 06:59 14:59 Other: Weight 108.862 kg Results 01/04/24 05:00 01/04/24 05:00 Cardiac Enzymes 01/04/24 01/04/24 01/04/24 Range/Units 05:00 05:00 07:22 AST 31 (14-36) U/L Troponin I <0.012 <0.012 (0.000-0.034) ng/mL Coagulation 01/04/24 Range/Units 05:00 PT 10.2 (10.0-12.5) sec APTT 22.8 (22.0-30.0) sec CBC 01/04/24 Range/Units 05:00 WBC 4.3 (3.8-10.6) k/uL RBC 4.24 (3.80-5.40) m/uL Hgb 12.7 (11.4-16.0) gm/dL Hct 38.7 (34.0-46.0) % Plt Count 246 (150-450) k/uL Comprehensive Metabolic Panel 01/04/24 Range/Units 05:00 Sodium 128 L (137-145) mmol/L Potassium 4.0 (3.5-5.1) mmol/L Chloride 102 (98-107) mmol/L Carbon Dioxide 23 (22-30) mmol/L BUN 15 (7-17) mg/dL Creatinine 0.69 (0.52-1.04) mg/dL Glucose 87 (74-99) mg/dL Calcium 9.1 (8.4-10.2) mg/dL AST 31 (14-36) U/L ALT 24 (4-34) U/L Alkaline Phosphatase 133 H (38-126) U/L Total Protein 6.3 (6.3-8.2) g/dL Albumin 3.7 (3.5-5.0) g/dL Current Medications Generic Name Dose Route Start Last Admin Trade Name Freq PRN Reason Stop Dose Admin Hydrocodone Bitart/Acetaminophen 1 each 01/04/24 06:42 Hydrocodone/Apap 7.5-325mg 1 Each Tab PO BID PRN Pain Aminophylline 100 mg 01/04/24 08:21 Aminophylline 500 Mg/20 Ml Vial IV 01/04/24 12:21 ONCE PRN Patient Response Caffeine Citrate 60 mg 01/04/24 08:21 Caffeine Citrate 60 Mg/3 Ml Vial IV 01/04/24 12:21 ONCE PRN Patient Response Metoprolol Succinate 75 mg 01/04/24 21:00 Metoprolol Succinate (Er) 25 Mg Tab.Er.24h PO HS CHUCKY Multivitamins 1 each 01/04/24 09:00 01/04/24 08:17 Multivitamins, Thera 1 Each Tab PO Not Given DAILY CHUCKY Nitroglycerin 0.4 mg 01/04/24 06:41 Nitroglycerin Sl Tabs 0.4 Mg Tab SUBLINGUAL Q5M PRN Chest Pain Regadenoson 0.4 mg 01/04/24 08:21 Regadenoson 0.4 Mg/5 Ml Syringe IV 01/04/24 12:21 ONCE PRN Per Protocol Intake and Output 01/03/24 01/04/24 01/04/24 22:59 06:59 14:59 Other: Weight 108.862 kg 01/04/24 05:00 01/04/24 05:00
[2024-01-04] MEDS: HYDROcodone/APAP 7.5-325MG 1 EACH TAB PO PRN (10:45)
--- NOTE | 2024-01-04 10:56 | CA ---
Lexiscan Nuclear Stress Test Report Name: Frieda [employer] Exam Date: 01/04/2024 09:47 Exam Location: [place] Stress Ht (in): 63 Wt (lb): 240 BSA: 2.09 Ordering Phys: Lyssa Wade Referring Phys: WICHO MCMAHON Technologist: Angel Barbour Age: 58 Gender: F : 1965 Procedure CPT: Indications: Reflex order-Stress test ICD-10 Codes: Patient History: Medications: see chart Meds past 24 hrs: Pretest Chest Pain: STRESS TEST Lexiscan Protocol Exercise Duration (min:sec): 02:[address] Depressions (mm): Angina Score: Yadav Score: Resting HR (bpm): 57 Peak HR (bpm): 82 Resting BP (mmHg): 170 / 87 Peak BP (mmHg): 168 / 80 MPHR: 161 Target HR: 137 % MPHR: 51 METS: 1.0 Total Dose: Peak Dose: Atropine: Double Product: 61756 BP Response: Stress Termination: PROTOCOL COMPLETE Stress Symptoms: NO SYMPTOMS Stress Summary: ECG ANALYSIS Resting ECG: Normal sinus rhythm normal axis normal intervals Stress ECG: Patient was given intravenous Lexiscan as a protocol did not have chest pain or diagnostic ST segment depression CONCLUSIONS Negative stress test by EKG criteria Cardiolite portion of the stress test will be reported separately Dr. Wicho Mcmahon MD (Electronically Signed) Final Date: 04 January 2024 10:55
--- NOTE | 2024-01-04 13:38 | NM ---
EXAMINATION TYPE: NM stress lexiscan cardiolite DATE OF EXAM: 01/04/2024 COMPARISON: NONE CLINICAL INDICATION: Female, 58 years old with history of CP; TECHNIQUE: After the intravenous administration of 10.5 mCi Tc 99m Sestamibi - Cardiolite resting SP ECT images acquired 45 minutes post injection. The patient received 0.4mg Lexiscan, 25.3 mCi Tc 99m Sestamibi - Stress images obtained [address] injection FINDINGS: Review of stress and rest SPECT images demonstrates a large fixed defect involving nearly the entire inferolateral wall. There is moderate to large area reversibility involving the anteroseptal wall. Ga osmin analysis shows Global hypokinesis with lack limited augmentation of the anteroseptal and inferola teral [place]. Estimated LVEF of 41%. TID is calculated at 1.0, within normal limits. IMPRESSION: 1. Correlate for ischemic cardiomyopathy. Estimated LVEF 41%. 2. Large fixed defect inferolateral wall. Correlate for old infarct. 3. Large area of anteroseptal wall reversibility/inducible ischemia.
[2024-01-04] MEDS ORDERED: ALPRAZolam 0.5 MG TAB PO PRN (13:49)
[2024-01-04] MEDS ORDERED: ALPRAZolam 0.25 MG TAB PO PRN (13:49)
--- NOTE | 2024-01-04 15:59 | P.HPIM ---
History of Present Illness This is a pleasant 58 years old female with past medical history of atrial fibrillation and hypertension. Patient presents because of chest pain at 1:00 this morning on the left side radiating to the left shoulder jaw back and arm. About 8/10 in severity nonspecific. Associated with some face numbness. Also has some coughing but no dyspnea. No change in urine or bowel habits. 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 HEENT: No recent visual problems or hearing problems. Denied any sore throat. CARDIOVASCULAR: No orthopnea, PND, no palpitations, no syncope. PULMONARY: No shortness of breath, no cough, no hemoptysis. GASTROINTESTINAL: No diarrhea, no nausea, no vomiting, no abdominal pain. Normoactive bowel sounds. NEUROLOGICAL: No headaches, no weakness, no numbness. HEMATOLOGICAL: Denies any bleeding or petechiae. GENITOURINARY: Denies any burning micturition, frequency, or urgency. MUSCULOSKELETAL/RHEUMATOLOGICAL: Denies any joint pain, swelling, or any muscle pain. ENDOCRINE: Denies any polyuria or polydipsia. Past Medical History Past Medical History: Atrial Fibrillation, GERD/Reflux, Osteoarthritis (OA), Skin Disorder Additional Past Medical History / Comment(s): PSORIASIS, abnormal stress test in past hernia in "abdomen", constipation, History of Any Multi-Drug Resistant Organisms: None Reported Past Surgical History: Cardiac Ablation, Orthopedic Surgery Additional Past Surgical History / Comment(s): ganglion CYST REMOVED rt hand, TRIGGER THUMB rt hand, cryo ablation,verisocse vein removed from lft leg Past Anesthesia/Blood Transfusion Reactions: Motion Sickness Past Psychological History: No Psychological Hx Reported Smoking Status: Never smoker - Past Family History Mother Family Medical History: Cancer Additional Family Medical History / Comment(s): SKIN CA Father Family Medical History: Coronary Artery Disease (CAD), Diabetes Mellitus Medications and Allergies Home Medications Medication Instructions Recorded Confirmed Type Metoprolol Succinate [Metoprolol 75 mg PO HS 03/23/22 01/04/24 History Succinate ER] Hydrocodone/Acetaminophen 1 tab PO BID PRN 06/24/23 01/04/24 History [Hydrocodone/Acetaminophen 7.5-325] Ibuprofen [Motrin] 600 mg PO BID PRN 01/04/24 01/04/24 History Risankizumab-Rzaa [Skyrizi Pen] 150 mg SQ Q90D 01/04/24 01/04/24 History Allergies Allergy/AdvReac Type Severity Reaction Status Date / Time cephalexin [From Keflex] Allergy Anaphylaxis Verified 01/04/24 08:03 tetracycline Allergy Anaphylaxis Verified 01/04/24 08:03 adhesive AdvReac Unknown Verified 01/04/24 08:03 hydrocortisone AdvReac Swelling Verified 01/04/24 08:03 [From Cortizone-10] super glue Allergy Dyspnea Uncoded 01/04/24 08:03 Physical Exam Vitals: Vital Signs Temp Pulse Resp BP Pulse Ox 01/04/24 10:40 60 16 147/90 01/04/24 07:48 97.8 F 55 L 16 121/56 99 01/04/24 06:13 97.5 F L 60 18 118/57 97 01/04/24 03:39 97.7 F 61 18 148/82 98 Intake and Output 01/03/24 01/04/24 01/04/24 22:59 06:59 14:59 Other: Weight 108.862 kg -GENERAL: The patient is alert and oriented x3, not in any acute distress. Well developed, well nourished. Obese HEENT: Pupils are round and equally reacting to light. EOMI. No scleral icterus. No conjunctival pallor. Normocephalic, atraumatic. No pharyngeal erythema. No thyromegaly. CARDIOVASCULAR: S1 and S2 present. No murmurs, rubs, or gallops. PULMONARY: Chest is clear to auscultation, no wheezing , no crackles. ABDOMEN: Soft, nontender, nondistended, normoactive bowel sounds. No palpable organomegaly. MUSCULOSKELETAL: No joint swelling or deformity. EXTREMITIES: No cyanosis, clubbing, or pedal edema. NEUROLOGICAL: Gross neurological examination did not reveal any focal deficits. SKIN: No rashes. no petechiae. Results CBC & Chem 7: 01/04/24 05:00 01/04/24 05:00 Labs: Abnormal Lab Results - Last 24 Hours (Table) 01/04/24 Range/Units 05:00 Sodium 128 L (137-145) mmol/L Alkaline Phosphatase 133 H (38-126) U/L Assessment and Plan Assessment: Chest pain possible coronary artery disease, with positive stress test Hyponatremia, Hypertension Chronic A-fib Obesity with BMI of 42.5 History of GERD History of osteoarthritis History of psoriasis Plan: Patient evaluated by missile inspector preflight Patient has positive stress test Cardiology team might consider cardiac cath tomorrow we will make the patient n.p.o. after midnight Patient received aspirin Labs and medication were reviewed.. Continue same treatment. Continue with symptomatic treatment. Resume home medication. Monitor labs and vitals. DVT and GI prophylaxis. Further recommendations as per clinical course of the patient DVT prophylaxis: sc hep GI Prophylaxis: Pepcid Prognosis is guarded
[2024-01-04 16:21] LABS: Potassium 4.5 mmol/L (3.5-5.1)
--- NOTE | 2024-01-04 17:23 | CA ---
Transthoracic Echo Report Name: Frieda Power Age: 58 Gender: F : 1965 Exam Date: 01/04/2024 14:58 Exam Location: [facility] Ht (in): 63 Wt (lb): 240 Ordering Physician: Lyssa Wade Attending/Referring Phys: [id number], Mauro Cruller Maker Machine Winnie Gannon RDCS Procedure CPT: Indications: LV function, CP Cardiac Hx: Technical Quality: Technically difficult study Contrast 1: Definity Total Dose (mL): 2 Contrast 2: Total Dose (mL): MEASUREMENTS (Male / Female) Normal Values 2D ECHO LV Diastolic Diameter PLAX 5.3 cm 4.2 - 5.9 / 3.9 - 5.3 cm LV Systolic Diameter PLAX 3.5 cm IVS Diastolic Thickness 1.1 cm 0.6 - 1.0 / 0.6 - 0.9 cm LVPW Diastolic Thickness 0.7 cm 0.6 - 1.0 / 0.6 - 0.9 cm LV Relative Wall Thickness 0.4 LVOT Diameter 2.2 cm LV Diastolic Volume MOD BP 146.7 cm??? 67 - 155 / 56 - 104 cm??? LV Systolic Volume MOD BP 53.8 cm??? 22 - 58 / 19 - 49 cm??? LV Ejection Fraction MOD BP 63.3 % >= 55 % LV Cardiac Index MOD BP 2630.8 cm???/min???m??? LV Diastolic Volume MOD 4C 146.2 cm??? LV Systolic Volume MOD 4C 51.7 cm??? LV Ejection Fraction MOD 4C 64.6 % LV Cardiac Index MOD 4C 2675.2 cm???/min???m??? LV Diastolic Length 4C 9.3 cm LV Systolic Length 4C 7.6 cm LV Diastolic Volume MOD 2C 137.1 cm??? LV Systolic Volume MOD 2C 53.7 cm??? LV Ejection Fraction MOD 2C 60.8 % LV Cardiac Index MOD 2C 2362.1 cm???/min???m??? LV Diastolic Length 2C 8.6 cm LV Systolic Length 2C 7.3 cm LA Volume 74.7 cm??? 18 - 58 / 22 - 52 cm??? LA Volume Index 33.1 cm???/m??? 16 - 28 cm???/m??? Ascending Aorta Diameter 3.2 cm DOPPLER AV Peak Velocity 146.8 cm/s AV Peak Gradient 8.6 mmHg AV Mean Velocity 97.2 cm/s AV Mean Gradient 4.3 mmHg AV Velocity Time Integral 32.7 cm LVOT Peak Velocity 104.5 cm/s LVOT Peak Gradient 4.4 mmHg LVOT Velocity Time Integral 22.6 cm LVOT Stroke Volume 89.8 cm??? LVOT Stroke Volume Index 43.0 ml/m??? LVOT Cardiac Index 2543.9 cm???/min???m??? AV Area Cont Eq vti 2.7 cm??? AV Area Cont Eq pk 2.8 cm??? MV Area PHT 3.9 cm??? Mitral E Point Velocity 91.8 cm/s Mitral A Point Velocity 50.3 cm/s Mitral E to A Ratio 1.8 MV Deceleration Time 193.2 ms PV Peak Velocity 112.0 cm/s PV Peak Gradient 5.0 mmHg FINDINGS Left Ventricle Left ventricular ejection fraction is estimated at 60 %. Mildly increased septal wall thickness. Severely increased left ventricular diastolic volume. Mildly increased left ventricular systolic volume. No obvious regional wall motion abnormalities. Right Ventricle Normal right ventricular size and function. Unable to estimate the right ventricular systolic pressure. Right Atrium Normal right atrial size. Left Atrium Mildly increased left atrial volume. Mildly increased left atrial area. Mitral Valve Structurally normal mitral valve. No evidence for mitral valve prolapse. No mitral stenosis. Mild mitral regurgitation. Aortic Valve Trileaflet aortic valve. No aortic valve stenosis or regurgitation. Tricuspid Valve Structurally normal tricuspid valve. No tricuspid stenosis. Trace tricuspid regurgitation. Pulmonic Valve Pulmonic valve not well visualized. No pulmonic stenosis. No pulmonic regurgitation. Pericardium No pericardial effusion. Prominent epicardial fat. Aorta Normal size aortic root and proximal ascending aorta. CONCLUSIONS Normal LV systolic function Previewed by: Dr. Wicho Mcmahon MD (Electronically Signed) Final Date: 04 January 2024 17:21
[2024-01-04 19:33] VITALS: RESP 16
[2024-01-04] MEDS: FAMOTIDINE 20 MG/2 ML VIAL IV SCH (21:00)
[2024-01-04] MEDS: HEPARIN SODIUM,PORCINE 5,000 UNIT/ML 1 ML VIAL SQ SCH (21:05)
[2024-01-04] MEDS: METOPROLOL SUCCINATE (ER) 25 MG TAB.ER.24H PO SCH (21:16)
[2024-01-05] MEDS: SODIUM CHLORIDE 0.9% 1,000 ML in EMPTY BAG 1 BAG IV SCH (02:55)
[2024-01-05] MEDS: ASPIRIN 325 MG TAB PO ONE (05:00)
[2024-01-05] MEDS: ATORVASTATIN 80 MG TAB PO ONE (05:00)
[2024-01-05] MEDS ORDERED: HEPARIN SODIUM,PORCINE 10,000 UNIT in SODIUM CHLORIDE 0.9% 1,000 ML IRRIGATION PRN (07:00)
[2024-01-05] MEDS ORDERED: HEPARIN SODIUM,PORCINE (1 ML) 2,500 UNIT in SODIUM CHLORIDE 0.9% 250 ML IRRIGATION PRN (07:00)
[2024-01-05 08:00] VITALS: TEMP 98.2
[2024-01-05 08:43] LABS: Chol/HDL Ratio 6.09 Ratio; LDL Cholesterol,Calculated 163.4 mg/dL (0.0-131.0)
[2024-01-05] MEDS ORDERED: ASPIRIN 325 MG TAB PO SCH (09:00)
[2024-01-05] MEDS ORDERED: HEPARIN SODIUM 1,000 UN/ML (10ML VL) ONE (09:22)
[2024-01-05] MEDS ORDERED: fentaNYL (PF) 50 MCG/ML 2 ML AMP ONE (09:23)
[2024-01-05] MEDS ORDERED: VERAPAMIL 2.5 MG/ML 2 ML AMP ONE (09:23)
[2024-01-05] MEDS ORDERED: LIDOCAINE 1% INJ 10MG/ML (20 ML MDV) ONE (09:23)
[2024-01-05] MEDS: SODIUM CHLORIDE 0.9% 1,000 ML IV ONE (09:32)
[2024-01-05] MEDS: fentaNYL (PF) 50 MCG/1 ML VIAL IVP ONE (09:50)
[2024-01-05] MEDS: MIDAZOLAM 2 MG/2 ML VIAL IVP ONE (09:50)
[2024-01-05] MEDS: LIDOCAINE 1% INJ 10MG/ML (20 ML MDV) SQ ONE (09:54)
[2024-01-05] MEDS: IOPAMIDOL-370 200ML BTL INJ ONE (10:10)
[2024-01-05] MEDS: HYDROmorphone 0.5 MG/0.5 ML SYRINGE IVP ONE (11:06)
--- NOTE | 2024-01-05 11:13 | CC ---
CARDIAC CATHETERIZATION REPORT INDICATIONS: Chest pain with abnormal stress test. PROCEDURE NOTE: After obtaining informed consent, left heart catheterization and coronary angiogram were performed via the right femoral artery using standard Evette catheters. The patient tolerated the procedure well without any obvious immediate complications. A femoral angiogram was performed and the patient was hemostasis. I initially attempted a right radial artery access, but I could not as right radial artery pulse is barely palpable. She had a prior right radial catheterization. The patient received moderate conscious sedation. Total sedation time was 17 minutes. HEMODYNAMICS: 1. Left ventricular end-diastolic pressure is 17 mm. There is no significant gradient across the aortic valve. 2. Left ventriculogram: Left ventriculogram is not performed. 3. Angiographic data: a.Left main coronary artery: Left main coronary artery is a normal-sized vessel and is free of stenosis. Divides into left anterior descending coronary artery and circumflex coronary artery. LAD and its branches, circumflex coronary artery and its branches are free of significant stenosis. Right coronary artery is a large dominant vessel and is free of significant disease. CONCLUSIONS: 1. Normal coronary arteries. 2. Falsely positive stress test. PLAN: The patient will be discharged home later this afternoon and her management is going to be in the form of risk factor modification. MMODL / IJN: [id number] /
[2024-01-05] MEDS ORDERED: RX INFO: IV CONTRAST WAS GIVEN 1 EACH MISC MISCELLANE PRN (11:21)
[2024-01-05] MEDS: SODIUM CHLORIDE 0.9% 1,000 ML IV SCH (13:46)
[2024-01-05 16:18] VITALS: BP 143/71; PULSE 71
--- NOTE | 2024-01-11 11:16 | P.DS ---
Providers Date of admission: 01/04/24 06:42 Attending physician: Lawrence Resendiz Consults: 01/04/24 06:41 Consult Physician Routine Consulting Provider: Mario Mane Consult Reason/Comments: chest pain Do you want consulting provider notified?: Yes Primary care physician: Nusrat Conway Hospital Course: Diagnoses: Chest pain possible coronary artery disease, with positive stress test, however cardiac cath showing normal coronary arteries Hyponatremia, Hypertension Chronic A-fib Obesity with BMI of 42.5 History of GERD History of osteoarthritis History of psoriasis Hospital course: This is a pleasant 58 years old female with past medical history of atrial fibrillation and hypertension. Patient presents because of chest pain at 1:00 this morning on the left side radiating to the left shoulder jaw back and arm. Patient evaluated by nuclear cardiology technologist, she had normal cardiac cath with normal coronary arteries Chest pain has resolved, no dyspnea or coughing. No other new complaints Exhibits Curator cleared the patient for discharge Problems and management plan were discussed with the patient and he verbalized understanding and acceptance Patient was found stable and can be discharged home in guarded prognosis however he needs follow-up as an outpatient. Patient was instructed to follow up with PCP within one week and patient agrees Patient was instructed to follow-up with Dr. Vasquez as an outpatient in 1 to 2 weeks and she agrees Physical exam Gen: patient is a AAOx3, no distress CVS: S1-S2, RRR, no murmur Lungs: B/L CTA, no wheezing Abdomen: soft, no distention, no tenderness, positive bowel sounds Extremity: no leg edema or induration Time spent more than 35 minutes Plan - Discharge Summary Discharge Rx Participant: No New Discharge Prescriptions: Continue Metoprolol Succinate [Metoprolol Succinate ER] 75 mg PO HS Hydrocodone/Acetaminophen [Hydrocodone/Acetaminophen 7.5-325] 1 tab PO BID PRN PRN Reason: Pain Risankizumab-Rzaa [Skyrizi Pen] 150 mg SQ Q90D Discontinued Ibuprofen [Motrin] 600 mg PO BID PRN PRN Reason: Pain Discharge Medication List Metoprolol Succinate [Metoprolol Succinate ER] 75 mg PO HS 03/23/22 [History] Hydrocodone/Acetaminophen [Hydrocodone/Acetaminophen 7.5-325] 1 tab PO BID PRN 06/24/23 [History] Risankizumab-Rzaa [Skyrizi Pen] 150 mg SQ Q90D 01/04/24 [History] Follow up Appointment(s)/Referral(s): Rudy Ballesteros MD [STAFF PHYSICIAN] - 01/11/24 11:00 am (Appointment will be at the main office) Nusrat Conway DO [Primary Care Provider] - 1-2 days Patient Instructions/Handouts: *Surgery [facility] - After Heart Catheterization - Corporate Event Planner Instructions Activity/Diet/Wound Care/Special Instructions: heart healthy diet activity is restricted till you see your doctor Discharge Disposition: HOME SELF-CARE
== END 2024-01-05 18:33 | disposition home or self-care (01) ==
LOC: EC 03:36 → 6NMEDSUR 06:42
PROVIDERS: ADMIT Hospitalist; ATTEND Hospitalist
DX: R07.89 Other chest pain (principal); R94.39 Abnormal result of other cardiovascular function study; E87.1 Hypo-osmolality and hyponatremia; I10 Essential (primary) hypertension; I08.1 Rheumatic disorders of both mitral and tricuspid valves; I48.0 Paroxysmal atrial fibrillation; I48.20 Chronic atrial fibrillation, unspecified; K21.9 Gastro-esophageal reflux disease without esophagitis; M19.90 Unspecified osteoarthritis, unspecified site; L40.9 Psoriasis, unspecified; M79.602 Pain in left arm; M54.2 Cervicalgia; M54.9 Dorsalgia, unspecified; R00.1 Bradycardia, unspecified; R20.0 Anesthesia of skin; R05.9 Cough, unspecified; M25.512 Pain in left shoulder; R68.84 Jaw pain; E66.9 Obesity, unspecified; Z68.41 Body mass index [BMI] 40.0-44.9, adult; Z79.01 Long term (current) use of anticoagulants; Z79.899 Other long term (current) drug therapy; Z88.1 Allergy status to other antibiotic agents; Z88.8 Allergy status to other drugs, medicaments and biological substances; Z91.048 Other nonmedicinal substance allergy status
CPT/HCPCS: 36415; 71046; 78452; 80051; 80053; 80061; 83735; 84484; 85025; 85610; 85730; 93005; 93017; 93306; 93458; 96372; 96374; 96376; 99285

== ENCOUNTER → 2024-04-12 | Outpatient (CLI) | payer BC, OTHER ==
--- NOTE | 2024-04-12 09:29 | XR ---
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 FINDINGS: Lungs/Pleura: There is no evidence of pleural effusion, focal consolidation, or pneumothorax. Pulmonary vascularity: Unremarkable. Heart/mediastinum: Cardiomediastinal silhouette is unremarkable. Musculoskeletal: No acute osseous pathology. IMPRESSION: No acute cardiopulmonary disease/process. [facility], , 04/12/2024 9:27 AM
== END | disposition home or self-care (01) ==
LOC: RADXRMAIN 08:41
PROVIDERS: ATTEND Dermatology MOHS-Micrographic Surgery
DX: L40.0 Psoriasis vulgaris (principal)
CPT/HCPCS: 71046